=== PATIENT | male | born 1945 | race Caucasian/White ===

== ENCOUNTER 2016-11-27 21:53 | Emergency (ER) | payer OTHER, MEDICARE ==
[2016-11-27] MEDS ORDERED: diltiaZEM INJ 5 MG/ML VIAL IVP STA ×2 (22:35→23:07)
[2016-11-27] MEDS ORDERED: diltiaZEM INJ 5 MG/ML VIAL ONE ×2 (22:40→23:09)
[2016-11-28] MEDS ORDERED: POTASSIUM CHLOR 10 MEQ/100 ML 100 ML IV STA (00:19)
[2016-11-28] MEDS ORDERED: METOPROLOL 5 MG/5 ML VIAL IVP STA ×3 (00:20→00:42)
[2016-11-28] MEDS ORDERED: METOPROLOL 5 MG/5 ML VIAL IVP ONE ×2 (00:25→00:43)
[2016-11-28] MEDS ORDERED: POTASSIUM CHLOR 10 MEQ/100 ML 100 ML IV ONE (00:25)
[2016-11-28] MEDS ORDERED: SODIUM CHLORIDE 0.9% 500 ML IV STA (01:03)
== END 2016-11-28 03:10 | disposition home or self-care (01) ==
DX: I48.91 Unspecified atrial fibrillation (principal); I48.92 Unspecified atrial flutter

== ENCOUNTER 2018-04-30 16:42 | Emergency (ER) | payer MEDICARE, BC ==
--- NOTE | 2018-04-30 17:14 | ED Physician Documentation ---
PD HPI CHEST PAIN - Stated complaint Stated Complaint: DIZZINESS,POSS AFIB - Chief complaint Chief Complaint: Cardiac - History obtained from History obtained from: Patient - History of Present Illness Timing - onset: Today (72-year-old gentleman with history of paroxysmal atrial fibrillation maintained on twice daily flecainide and once a day metoprolol. Of note he started timolol eye gtts a few months ago. Today he has had episodic feeling like his heart is skipping a beat. There is no associated syncope or presyncope, shortness of breath, pedal edema, or chest pain.) Review of Systems Constitutional: denies: Fever, Chills Cardiac: reports: Palpitations. denies: Chest pain / pressure, Pedal edema, Calf pain Respiratory: denies: Dyspnea, Cough, Hemoptysis, Wheezing GI: denies: Abdominal Pain, Nausea PD PAST MEDICAL HISTORY - Past Medical History Cardiovascular: Atrial fibrillation Respiratory: None Endocrine/Autoimmune: None GI: None : None HEENT: Glaucoma Psych: Anxiety Musculoskeletal: None Derm: None - Past Surgical History Past Surgical History: Yes HEENT: Tonsil/Adenoidectomy - Present Medications Home Medications: Ambulatory Orders Medication Instructions Recorded Confirmed Latanoprost 0.005% Ophth Drops 1 drop EACHEYE DAILY 03/05/14 11/27/16 [Xalatan Ophth Drops] Metoprolol Tartrate 25 mg PO DAILY 08/03/14 11/27/16 Tamsulosin [Flomax] 0.4 mg PO DAILY 01/14/16 11/27/16 Aspirin [Adult Low Dose Aspirin EC] 81 mg PO DAILY 08/01/16 11/27/16 Flecainide [Tambocar] 50 mg PO BID 08/01/16 11/27/16 - Allergies Allergies/Adverse Reactions: Allergies Allergy/AdvReac Type Severity Reaction Status Date / Time No Known Drug Allergies Allergy Verified 04/30/18 16:48 - Social History Does the pt smoke?: No Smoking Status: Never smoker Does the pt drink ETOH?: No Does the pt have substance abuse?: No - Immunizations Immunizations are current?: Yes - POLST Patient has POLST: Yes PD ED PE NORMAL - Vitals Vital signs reviewed: Yes - General General: Alert and oriented X 3, No acute distress - Neck Neck: Supple, no meningeal sign, No bony TTP - Cardiac Cardiac: RRR, No murmur - Respiratory Respiratory: No respiratory distress, Clear bilaterally - Abdomen Abdomen: Non tender - Neuro Neuro: Alert and oriented X 3, Normal speech Results - Vitals Vitals: Vital Signs - 24 hr 04/30/18 04/30/18 04/30/18 16:45 17:49 18:07 Temperature 36.8 C Heart Rate 65 40 L 44 L Respiratory 16 16 14 Rate Blood Pressure 139/67 H 144/55 H 144/64 H O2 Saturation 98 97 100 Oxygen O2 Source Room air - EKG (time done) 1703 Rate: Rate (enter#) (45) Rhythm: Sinus bradycardia [place]: Normal Intervals: Normal ID QRS: Normal Ischemia: Normal ST segments Computer interpretation: Agree with computer - Labs Labs: Laboratory Tests 04/30/18 04/30/18 04/30/18 17:23 17:23 17:23 WBC 8.3 RBC 4.66 L Hgb 15.3 Hct 42.6 MCV 91.6 MCH 32.9 H MCHC 35.9 RDW 12.9 Plt Count 200 MPV 7.9 Neut # (Auto) 5.0 Lymph # (Auto) 2.2 [place] # (Auto) 0.9 Eos # (Auto) 0.1 Baso # (Auto) 0.0 Absolute Nucleated RBC 0.01 Nucleated RBC % 0.1 Sodium 137 Potassium 4.0 Chloride 103 Carbon Dioxide 24 Anion Gap 10.0 BUN 21 H Creatinine 1.0 Estimated GFR (MDRD) 74 L Glucose 147 H Calcium 8.8 Magnesium 2.2 Total Bilirubin 1.9 H AST 36 ALT 35 Alkaline Phosphatase 55 Troponin I < 0.04 Total Protein 6.6 L Albumin 4.3 Globulin 2.3 Albumin/Globulin Ratio 1.9 Lipase 30 PD MEDICAL DECISION MAKING - ED course ED course: 72-year-old gentleman with palpitations that are very fleeting and intermittent. As we are talking on the monitor he said it just happened and he had a single PA-C. I discussed with him that this is not really pathologic per se. Of note he is modestly bradycardic. I presume because of the combination of atenolol and metoprolol and he is advised to stop his metoprolol until he follows up. That said, his symptoms do not really correlate with symptomatic bradycardia. - Sepsis Event Vital Signs: Vital Signs - 24 hr 09/09/1604/30/18 04/30/18 16:45 17:49 18:07 Temperature 36.8 C Heart Rate 65 40 L 44 L Respiratory 16 16 14 Rate Blood Pressure 139/67 H 144/55 H 144/64 H O2 Saturation 98 97 100 Oxygen O2 Source Room air Departure - Departure Disposition: 01 Home, Self Care Clinical Impression: Palpitations, PAC (premature atrial contraction) Condition: Good Record reviewed to determine appropriate education?: Yes Instructions: ED Palpitations Comments: Stop your metoprolol until you follow-up with your primary care physician, follow-up with Dr. Polanco or one of his partners this week for a pulse and blood pressure check. Discharge Date/Time: 04/30/18 18:09
[2018-04-30 17:41] LABS: ALBUMIN 4.3 g/dL (3.2-5.5); ALBUMIN/GLOBULIN RATIO 1.9 (1.0-2.2); BILIRUBIN,TOTAL 1.9 mg/dL (0.2-1.0); CALCIUM 8.8 mg/dL (8.5-10.3); MAGNESIUM 2.2 mg/dL (1.7-2.8); TOTAL PROTEIN 6.6 g/dL (6.7-8.2)
[2018-04-30 17:53] LABS: BASOPHILS % (AUTO) 0.5 %; EOSINOPHILS # (AUTO) 0.1 10^3/uL (0.0-0.7); EOSINOPHILS % (AUTO) 1.1 %; HGB - HEMOGLOBIN 15.3 g/dL (14.0-18.0); LYMPHOCYTES # (AUTO) 2.2 10^3/uL (1.5-3.5); MEAN CORPUSCULAR HEMOGLOBIN 32.9 pg (27.0-31.0); MEAN CORPUSCULAR HGB CONC 35.9 g/dL (32.0-36.0); MEAN CORPUSCULAR VOLUME 91.6 fL (80.0-94.0); MEAN PLATELET VOLUME 7.9 fL (7.4-11.4); MONOCYTES # (AUTO) 0.9 10^3/uL (0.0-1.0); MONOCYTES % (AUTO) 10.4 %; PLT - PLATELET COUNT 200 10^3/uL (130-450); RED BLOOD COUNT 4.66 10^6/uL (4.70-6.10); RED CELL DISTRIBUTION WIDTH 12.9 % (12.0-15.0); WHITE BLOOD COUNT 8.3 x10^3/uL (4.8-10.8)
[2018-04-30 18:08] VITALS: BP 144/64
== END 2018-04-30 18:09 | disposition home or self-care (01) ==
LOC: ED 16:42
DX: R00.2 Palpitations (principal); I49.1 Atrial premature depolarization; I48.91 Unspecified atrial fibrillation
CPT/HCPCS: 36415; 80053; 83690; 83735; 84484; 85025; 93005; 99283

== ENCOUNTER 2019-02-11 19:45 | Emergency (ER) | payer MEDICARE, BC ==
[2019-02-11 20:21] LABS: BASOPHILS # (AUTO) 0.1 10^3/uL (0.0-0.1); BASOPHILS % (AUTO) 1.1 %; EOSINOPHILS # (AUTO) 0.1 10^3/uL (0.0-0.7); EOSINOPHILS % (AUTO) 0.9 %; HGB - HEMOGLOBIN 15.6 g/dL (14.0-18.0); LYMPHOCYTES # (AUTO) 2.2 10^3/uL (1.5-3.5); LYMPHOCYTES % (AUTO) 27.2 %; MEAN CORPUSCULAR HEMOGLOBIN 32.7 pg (27.0-31.0); MEAN CORPUSCULAR HGB CONC 35.7 g/dL (32.0-36.0); MEAN CORPUSCULAR VOLUME 91.5 fL (80.0-94.0); MEAN PLATELET VOLUME 8.1 fL (7.4-11.4); MONOCYTES # (AUTO) 0.9 10^3/uL (0.0-1.0); MONOCYTES % (AUTO) 10.9 %; NEUTROPHILS # (AUTO) 4.8 10^3/uL (1.5-6.6); NEUTROPHILS % (AUTO) 59.9 %; PLT - PLATELET COUNT 210 10^3/uL (130-450); RED BLOOD COUNT 4.77 10^6/uL (4.70-6.10); RED CELL DISTRIBUTION WIDTH 13.3 % (12.0-15.0)
--- NOTE | 2019-02-11 20:33 | ED Physician Documentation ---
History of Present Illness - Stated complaint Stated Complaint: IRREG HEARTBEAT - Chief complaint Chief Complaint: Cardiac - History obtained from History obtained from: Patient - History of Present Illness Timing: Enter time (15:00) Pain level max: 0 Pain level now: 0 Improved by: skipped beat palpitations starting 3 PM today while doing yardwork Review of Systems Constitutional: reports: Reviewed and negative Cardiac: reports: Palpitations. denies: Chest pain / pressure, Pedal edema, Calf pain Respiratory: reports: Reviewed and negative GI: reports: Reviewed and negative PD PAST MEDICAL HISTORY - Past Medical History Cardiovascular: Atrial fibrillation Respiratory: None Endocrine/Autoimmune: None GI: None : None HEENT: Glaucoma Psych: Anxiety Musculoskeletal: None Derm: None - Past Surgical History Past Surgical History: Yes HEENT: Tonsil/Adenoidectomy - Present Medications Home Medications: Ambulatory Orders Medication Instructions Recorded Confirmed Latanoprost 0.005% Ophth Drops 1 drop EACHEYE DAILY 03/05/14 11/27/16 [Xalatan Ophth Drops] Metoprolol Tartrate 25 mg PO DAILY 08/03/14 11/27/16 Tamsulosin [Flomax] 0.4 mg PO DAILY 01/14/16 11/27/16 Aspirin [Adult Low Dose Aspirin EC] 81 mg PO DAILY 08/01/16 11/27/16 Flecainide [Tambocar] 50 mg PO BID 08/01/16 11/27/16 - Allergies Allergies/Adverse Reactions: Allergies Allergy/AdvReac Type Severity Reaction Status Date / Time No Known Drug Allergies Allergy Verified 04/30/18 16:48 - Social History Does the pt smoke?: No Smoking Status: Never smoker Does the pt drink ETOH?: No Does the pt have substance abuse?: No - Immunizations Immunizations are current?: Yes - POLST Patient has POLST: Yes PD ED PE NORMAL - Vitals Vital signs reviewed: Yes - General General: Alert and oriented X 3, No acute distress, Well developed/nourished - Neck Neck: Supple, no meningeal sign - Cardiac Cardiac: No murmur, No gallop, No rub - Respiratory Respiratory: No respiratory distress, Clear bilaterally - Abdomen Abdomen: Soft, Non tender - Back Back: No CVA TTP - Extremities Extremities: No edema PD ED PE EXPANDED - Cardiac Cardiac: Regular Rate, Regular Rhythm, Other (occasional extra beats) Results - Vitals Vitals: Oxygen O2 Source Room air - EKG (time done) No standard instances Rate: Rate (enter#) (51) Rhythm: NSR [place]: LAD Intervals: Normal [place] QRS: Normal Ischemia: Normal ST segments - Labs Labs: Laboratory Tests 02/11/19 02/11/19 02/11/19 20:15 20:15 20:15 WBC 8.0 RBC 4.77 Hgb 15.6 Hct 43.6 MCV 91.5 MCH 32.7 H MCHC 35.7 RDW 13.3 Plt Count 210 MPV 8.1 Neut # (Auto) 4.8 Lymph # (Auto) 2.2 [place] # (Auto) 0.9 Eos # (Auto) 0.1 Baso # (Auto) 0.1 Absolute Nucleated RBC 0.01 Nucleated RBC % 0.1 Sodium 138 Potassium 3.6 Chloride 100 L Carbon Dioxide 26 Anion Gap 12.0 BUN 21 H Creatinine 1.2 Estimated GFR (MDRD) 60 L Glucose 108 H Calcium 9.5 Phosphorus Magnesium Total Bilirubin 1.6 H AST 30 ALT 28 Alkaline Phosphatase 73 Troponin I < 0.04 Total Protein 7.2 Albumin 4.4 Globulin 2.8 Albumin/Globulin Ratio 1.6 Lipase 40 02/11/19 20:15 WBC RBC Hgb Hct MCV MCH MCHC RDW Plt Count MPV Neut # (Auto) Lymph # (Auto) [place] # (Auto) Eos # (Auto) Baso # (Auto) Absolute Nucleated RBC Nucleated RBC % Sodium Potassium Chloride Carbon Dioxide Anion Gap BUN Creatinine Estimated GFR (MDRD) Glucose Calcium Phosphorus 2.9 Magnesium 2.5 Total Bilirubin AST ALT Alkaline Phosphatase Troponin I Total Protein Albumin Globulin Albumin/Globulin Ratio Lipase - Rads (name of study) chest xray Radiology: Prelim report reviewed, See rad report PD MEDICAL DECISION MAKING - ED course Complexity details: reviewed old records, reviewed results, re-evaluated patient, considered differential, d/w patient Departure - Departure Disposition: 01 Home, Self Care Clinical Impression: Palpitations Condition: Good Instructions: ED Bradycardia, ED Palpitations Comments: Contact your director of nurses registry on Wednesday to arrange for next available appointment Discharge Date/Time: 02/11/19 22:32
[2019-02-11 20:37] LABS: ALBUMIN 4.4 g/dL (3.2-5.5); ALBUMIN/GLOBULIN RATIO 1.6 (1.0-2.2); BILIRUBIN,TOTAL 1.6 mg/dL (0.2-1.0); CALCIUM 9.5 mg/dL (8.5-10.3); CREATININE 1.2 mg/dL (0.6-1.2); TOTAL PROTEIN 7.2 g/dL (6.7-8.2)
[2019-02-11 20:44] LABS: MAGNESIUM 2.5 mg/dL (1.7-2.8); PHOSPHORUS 2.9 mg/dL (2.5-4.6)
--- NOTE | 2019-02-11 21:17 | XRAY Report ---
Reason: c/o irregular heart rate Procedure Date: 02/11/2019 Accession Number: [id number] / [id number] Procedure: XR - Chest 1 View X-Ray CPT Code: 59239 FULL RESULT: EXAM: CHEST RADIOGRAPHY EXAM DATE: 02/11/2019 08:27 PM. CLINICAL HISTORY: C/o irregular heart rate. COMPARISON: CHEST 2 VIEW 04/30/2018 4:52 PM. TECHNIQUE: 1 view. FINDINGS: Lungs/Pleura: No focal opacities evident. No pleural effusion. No pneumothorax. Mediastinum: Within exam limitations, the cardiomediastinal contour is normal. Other: None. IMPRESSION: Normal single view chest. RADIA
[2019-02-11 22:17] VITALS: BP 156/61
== END 2019-02-11 22:32 | disposition home or self-care (01) ==
LOC: ED 19:45
DX: R00.2 Palpitations (principal); Z79.82 Long term (current) use of aspirin
CPT/HCPCS: 36415; 71045; 80053; 83690; 83735; 84100; 84484; 85025; 93005; 99283; 99284

== ENCOUNTER 2019-05-02 10:48 | Outpatient (CLI) | payer MEDICARE, BC ==
--- NOTE | 2019-05-02 11:53 | SLEEP CARE CONSULTATION ---
Information from patient questionnaire entered by Lolis Santiago. I have reviewed and concur with the information entered by Lolis Santiago. This document represents the service I personally performed and the decisions made by me, Zulema Ratliff MD, [facility]. History of Present Illness Reason for Visit: New patient Chief Complaint: reports: Observed pauses in breathing Usual bedtime: 2200 Time it takes to fall asleep: 3 MINUTES Observed to quit breathing while asleep: No Sleeps alone due to snoring: No (SINGLE) Number of times waking at night: 4-5 Reasons for waking at night: reports: Bathroom Usually gets out of bed at: [id number] Feels refreshed in the morning: Yes Morning headache: No Sleepy or fatigued during the day: No Ever fallen asleep while driving: No Takes day naps: No Dreams during day naps: No Prior sleep studies: No Additional HPI information: I had the pleasure of seeing Mr. Zhao today regarding the possibility of him having a sleep disorder. As you know, he is a 73 year old gentleman who had an overnight pulse oximetry that showed significant hypoxemia. He has cardiac arrhythmia and is taking flecanide. He often wakes up with palpitation. He does not snore much at night. He has never been observed to stop breathing in his sleep. However, he sleeps along. He can recall waking up on the average of 4 - 5 times during the night. Most of the time he wakes up because of having to use the bathroom. He complains of nasal congestion and uses BreathRite strips at night. He broke his nose as a child. Subjective Initial [place] Sleepiness Scale score: 0 Past Medical History Past Medical History: reports: Hypertension, Arrythmia, Other (IRREGULAR HEART BEAT AT TIMES) Social History The patient's occupation is RETIRED. Patient is Single and lives in [place]. Have you smoked in the past 12 months: No Alcohol use: No Caffeine use: Yes Caffeine amount and frequency: 8 OZ/DAY Family History Family history of sleep disordered breathing: No Allergies and Home Medications Drug allergies reviewed: Yes Home medication list reviewed: Yes Review of Systems Cardiovascular: reports: high blood pressure, irregular heart rate or pulse Respiratory: denies: shortness of breath, wheeze, sputum production, chronic cough, other Gastrointestinal: denies: heartburn, difficulty swallowing, nausea, vomitting, diarrhea, abdominal pain, other Urinary: reports: frequency Neurological: denies: headaches, seizure, head trauma, disorientation, speech dysfunction, gait or balance problems, fainting or unconsciousness, other Psychiatric: denies: Attention Deficit Hyperactivity, anxiety, depression, mood disorder, claustrophobia, other Ear/Nose/Throat: reports: dry mouth/throat Endocrine: denies: thyroid disease, history of goiter, sluggishness, too hot or cold, excessive thirst, increased appetite, increased urination, unexplained weakness, other Musculoskeletal: denies: joint pain, neck pain, back pain, joint swelling, muscle pain or cramping, mobility problems, other Physical Exam Vital signs obtained and entered by: Dr. Ratliff Blood Pressure: 125/70 Cuff size: long Heart Rate: 48 O2 Saturation: 99 Height: 5 ft 9 in Weight (kg): 180 lb Body Mass Index: 26.6 BMI Classification: Overweight Neck circumference: 16 Mood/affect: normal HEENT: No craniofacial malformation Nostrils: patent to airflow Turbinates: normal Septum: midline Mouth and throat: narrow oropharynx Soft palate: long Hard palate: normal Uvula: normal Uvula visualization: 50% Mallampati Class II Tongue: normal in size Tonsils: absent bilaterally Chin and jaw: normal size and position Neck: normal w/o lymphadenopathy or thyromegaly Heart: regular rate and rhythm Lungs: clear bilaterally Abdomen: soft, non-tender Extremities: no edema or clubbing Neurologic: intact, no focal deficits Impression and Plan IMPRESSION: 1. Obstructive Sleep Apnea-Hypopnea Syndrome, as suggested by history of loud and irregular snoring, observed cessation of breath while asleep, and frequent awakenings during the night. Narrow oropharynx and obesity are common predisposing factors for obstructive sleep apnea-hypopnea syndrome. Obstructive sleep apnea-hypopnea is a known predisposing factor for cardiac arrhythmia, especially atrial fibrillation. Pathophysiology of sleep-disordered breathing was discussed. I recommend proceeding to polysomnography to confirm the di agnosis and to assess severity. If he has significant sleep disordered breathing, a manual CPAP titration study will also be performed to find the optimal treatment pressure. I informed the patient of what the sleep studies involve and after some discussion, he agreed to proceed. Plan: 1. Schedule polysomnography + manual CPAP titration study and return in 1 to 2 weeks after the study to discuss result and initiate therapy. 2. Avoid long distance driving or when feeling sleepy. 3. Avoid alcohol, sedative and muscle relaxant around bedtime. 4. Attempt to lose weight. I spent 100% of this 15 minute visit face to face with the patient with greater than 50% of this was spent time counseling the patient and coordination of care.
[2019-05-02 11:54] VITALS: BP 125/70
== END 2019-05-02 10:49 | disposition home or self-care (01) ==
LOC: SC 10:48
PROVIDERS: ATTEND Internal Medicine Pulmonary Disease
DX: R06.81 Apnea, not elsewhere classified (principal); G47.8 Other sleep disorders; R06.83 Snoring
CPT/HCPCS: 99203; G0463; 99212

== ENCOUNTER 2019-05-20 20:36 | Outpatient (CLI) | payer MEDICARE, BC | END 2019-05-20 20:37 | disposition home or self-care (01) | LOC: SC 20:36 | PROVIDERS: ATTEND Internal Medicine Pulmonary Disease | DX: G47.33 Obstructive sleep apnea (adult) (pediatric) (principal); G47.61 Periodic limb movement disorder | CPT/HCPCS: 95810 ==

== ENCOUNTER 2019-06-14 14:52 | Outpatient (CLI) | payer MEDICARE, BC ==
--- NOTE | 2019-06-14 15:50 | SLEEP CARE CONSULTATION ---
Information from patient questionnaire entered by Melissa Perry. I have reviewed and concur with the information entered by Melissa Perry. This document represents the service I personally performed and the decisions made by me, Alena Mendoza RN, MSN, MANAGER OF ADMINISTRATION. History of Present Illness Initial [place] Sleepiness Scale score: 0 Current [place] Sleepiness Scale score: 0 Additional HPI information: ERIN MELCHOR returns with partner for follow up of the recently performed polysomnography and informed of findings. I explained the pathophysiology behind obstructive sleep apnea. We then spent quite a bit of time discussing different treatment options. For mild obstructive sleep apnea, surgery and oral appliance are alternatives to nasal CPAP therapy but in moderate or severe cases, nasal CPAP is the most effective and reliable treatment. I reviewed the impact of weight changes on sleep apnea and strongly recommended losing weight. After some discussion, the patient opted to go with the nasal CPAP therapy. I explained how CPAP machine works with sample devices Respironics Dreamstation and ResKidStart [id number] and what to expect when using the machine. I discussed the option of initiation of treatment with autoCPAP or having a manual titration study. The patient prefers to start therapy in a manual titration study. Patient counseled not drink alcohol less than 4 hours before bedtime as it can increase snoring and apnea. Patient does not drink alcohol. Patient was cautioned about risks of drowsy driving until sleepiness symptoms resolve. Patient denies drowsy driving. AAS patient education on snoring and sleep apnea given and reviewed. Sleep Study - Polysomnography Polysomnography findings: The quality of the study is good. The patient had poor sleep efficiency due to sleep onset insomnia and several prolonged awakenings during the night. The sleep architecture was abnormal for sleep fragmentation and reduced amount of time spent in REM and slow wave sleep (N3). Respiratory monitoring showed mild obstructive sleep apnea-hypopnea (AHI = 11.7) associated with frequent arousals, oxyhemoglobin desaturation and mild hypoxia (bertrand oxygen saturation of 86%). The patient did not sleep supine during this study (supine AHI = 0.0; non-supine = 11.72). Snore was light in intensity. There was severe periodic leg movement of sleep contributing to the sleep fragmentation. Cardiac rhythm was normal sinus rhythm without significant arrhythmia. No abnormal behavior (parasomnia) observed during the night. Allergies and Home Medications Known drug allergies: No Home medication list reviewed: Yes ( same except that added brimonidine eye drops bid both eyes ) Review of Systems Review of systems same as previous: Yes Physical Exam Blood Pressure: 140/60 Heart Rate: 73 O2 Saturation: 97 Height: 5 ft 9 in (stated) Weight: 185 lb Body Mass Index: 27.3 BMI Classification: Overweight Impression and Plan 1. Obstructive Sleep Apnea-Hypopnea Syndrome, mild, with lowest oxygen saturation of 86%. Positive pressure therapy could benefit his hypertension and atrial fibrillation. As mentioned above, the patient will be scheduled a manual titration study to find optimal treatment pressure for his comfort of initiating therapy. 2. Periodic limb movement, severe, that did not fragment patients sleep. Periodic limb movement of sleep (PLMS) is characterized by episodes of repetitive limb movements that occur during sleep and usually involve the lower limbs. The etiology is unknown but can be associated with restless leg syndrome (RLS), neuropathy, spinal cord diseases, kidney disease, rheumatological disorders, narcolepsy, obstructive sleep apnea, and REM sleep behavior disorder. Other factors that can increase PLMS and/or RLS are heredity and iron deficiency as reflected by a low serum ferritin level below 50 to 75mcg / L. Several medications can precipitate or aggravate PLMS such as selective serotonin re- uptake inhibitor antidepressants, tricyclic antidepressants, lithium, and dopamine receptor antagonists with the exception of bupropion. Caffeine can also aggravate PLMS and should be avoided. Sleep hygiene methods can also improve sleep as well as lifestyle changes such as regular exercise. Patient was advised t further evaluation is indicated such as rule out iron deficiency. * Schedule manual titration study. * Attempt to lose weight. * Avoid alcohol consumption near bedtime. * The patient is again cautioned about driving until sleepiness completely resolves. * Return after titration study to discuss results and initiate treatment. I spent 100% of this 43 minute visit face to face with the patient with greater than 50% of this was spent time counseling the patient and coordination of care.
[2019-06-14 15:51] VITALS: BP 140/60
== END 2019-06-14 14:53 | disposition home or self-care (01) ==
LOC: SC 14:52
PROVIDERS: ATTEND Nurse Practitioner Family
DX: G47.33 Obstructive sleep apnea (adult) (pediatric) (principal); G47.61 Periodic limb movement disorder
CPT/HCPCS: 99215; G0463; 99212

== ENCOUNTER 2019-07-28 20:19 | Outpatient (CLI) | payer MEDICARE, BC | END 2019-07-28 20:20 | disposition home or self-care (01) | LOC: SC 20:19 | PROVIDERS: ATTEND Internal Medicine Pulmonary Disease | DX: G47.33 Obstructive sleep apnea (adult) (pediatric) (principal); G47.61 Periodic limb movement disorder | CPT/HCPCS: 95811 ==

== ENCOUNTER 2019-08-01 10:52 | Outpatient (CLI) | payer MEDICARE, BC ==
[2019-08-01 10:19] VITALS: BP 128/70
--- NOTE | 2019-08-01 10:19 | SLEEP CARE CONSULTATION ---
Information from patient questionnaire entered by Melissa Perry. I have reviewed and concur with the information entered by Melissa Perry. This document represents the service I personally performed and the decisions made by me, Alena Mendoza, RN, MSN, TRANSP[employer]ATION MUSEUM HELPER. History of Present Illness Initial [place] Sleepiness Scale score: 0 Current [place] Sleepiness Scale score: 2 Additional HPI information: ERIN MELCHOR retruns for follow up of the sleep study with a manual CPAP titration study performed on 07/28/19. The patient was informed of the findings: I explained that the optimal CPAP pressure is 9cmH20.I explained the pathophysiology behind obstructive sleep apnea. I reviewed the impact of weight changes on sleep apnea and strongly recommended losing weight. After some discussion, the patient opted to go with the nasal CPAP therapy as planned . Nasal autoCPAP set at 9cmH20 will be ordered with rationale explained. I explained how CPAP machine works with sample devices Respironics Dreamstation and ResMed [id number] and what to expect when using the machine. Using CPAP every night in order to get used to it was emphasized. Patient advised to put CPAP mask on before getting into bed so as not to fall asleep without CPAP. To assist acclimation to CPAP use, it could also be used for a short time during day while reading or watching TV. The patient was instructed to call the CPAP supplier to discuss any mechanical problem that may occur. If the mask given is uncomfortable or is difficult to keep on through the night even with adjustment, contact the CPAP supplier as many will replace with another mask style if notified before 30 days. If snoring or perceives is not getting enough air or too much air from the machine, notify this office. AASM patient education PAP tips reviewed and given to patient. Patient prefers Respironics CPAP. Patient counseled not drink alcohol less than 4 hours before bedtime as it can increase snoring and apnea. Patient does not drink alcohol. Patient was cautioned about risks of drowsy driving until sleepiness symptoms resolve. Patient denies drowsy driving. AAS patient education on snoring and sleep apnea given and reviewed at last visit. Sleep Study - Polysomnography Polysomnography findings: The quality of the study is good. CPAP was initiated at 4 cmH2O and titrated up to CPAP at 8 cmH2O. CPAP at 9 cmH2O appeared to be optimal (AHI of 1.2 per hour on the pressure). There was REM sleep on the pressure. The patient did not sleep supine during this study. Oxygen saturation was mildly low due to the frequent residual respiratory events on lower CPAP settings. The patient appeared to have some difficulty tolerating positive airway pressure therapy. The patients sleep efficiency was reduced due to several prolonged awakenings after the sleep onset. The sleep architecture was abnormal for sleep fragmentation and reduced amount of time spent in REM sleep. There was severe periodic leg movement of sleep contributing to the sleep fragmentation. Cardiac rhythm was normal sinus rhythm without significant arrhythmia. No abnormal behavior (parasomnia) observed during the night. Allergies and Home Medications Known drug allergies: No Home medication list reviewed: Yes (no changes) Review of Systems Review of systems same as previous: Yes Physical Exam Blood Pressure: 128/70 Cuff size: long Heart Rate: 63 O2 Saturation: 98 Height: 5 ft 9 in Weight: 188 lb Weight change since last visit: gained 3 pounds Body Mass Index: 27.7 BMI Classification: Overweight Impression and Plan 1. Obstructive Sleep Apnea-Hypopnea Syndrome, mild, that is adequately controlled with CPAP pressure of [id number]. Obviously this is the cause of the patients symptoms of unrefreshed sleep, and excessive daytime sleepiness. Posi tive pressure therapy could benefit his hypertension and atrial fibrillation. As mentioned above, the patient will be started on nasal autoCPAP therapy with pressure set at 9 cmH2O. Compliance guidelines also reviewed. A copy of compliance guidelines will be given for reference at check out. * Nasal auto CPAP therapy, pressure at 9 cm H2O. * Respironics CPAP preferred * Attempt to lose weight. * Avoid alcohol consumption near bedtime. * The patient is again cautioned about driving until sleepiness completely resolves. * Return one month after CPAP obtained. I will assess response to therapy and compliance at that time. I spent 100% of this [20][30] minute visit face to face with the patient with greater than 50% of this was spent time counseling the patient and coordination of care.
== END 2019-08-01 10:53 | disposition home or self-care (01) ==
LOC: SC 10:52
PROVIDERS: ATTEND Nurse Practitioner Family
DX: G47.33 Obstructive sleep apnea (adult) (pediatric) (principal)
CPT/HCPCS: 99214; G0463; 99212

== ENCOUNTER 2019-10-16 08:17 | Outpatient (CLI) | payer MEDICARE, BC ==
[2019-10-16 09:07] VITALS: BP 128/60
--- NOTE | 2019-10-16 09:07 | SLEEP CARE CONSULTATION ---
Information from patient questionnaire entered by Lolis Santiago. I have reviewed and concur with the information entered by Lolis Satniago. This document represents the service I personally performed and the decisions made by me, Alena Mendoza, RN, MSN, LEAD LOADER. History of Present Illness Previous diagnosis: Mild, Obstructive Sleep Apnea-Hypopnea Syndrome AHI: 11.7 Reason for follow up: first compliance Equipment type: CPAP Equipment obtained from: [employer] Mask style: Nasal (N30) Mask brand: Resmed Backup mask available: Yes (Wisp from titration study to keep as spare advised) Last cushion change: 3 weeks ago Prior sleep studies: Yes CPAP Compliance Data - Data Reviewed with Patient Average duration of nightly device use: 4h 44m Compliance rate %: 93.3 ((compliant period 08/17/19-09/15/18)(last 30 days 46.7%)) Current pressure setting (cmH2O): 9 Humidity settin Heated hose settin Average residual AHI: 12.3 ((last 30 days 11.5)) Average large leak: 34s Subjective Missed days of use due to: reports: illness, travel (when traveled to [place], his nasal congestion prevented him from using CPAP. ) Patient concerns: reports: nasal congestion, dry mouth, nose, throat (*nose). denies: aerophagia, mask discomfort, air blowing in eyes, mask leak noise, condensation in mask/hose, epistaxis (mild dry nose daily with CPAP ) Observed to snore while using device: No (sleeps alone ) Current pressure setting perceived as: comfortable On therapy, patient: reports: other (no change noted) Initial Brightwood Sleepiness Scale score: 0 Current Brightwood Sleepiness Scale score: 0 Allergies and Home Medications Known drug allergies: No Home medication list reviewed: Yes (no changes ) Review of Systems Review of systems same as previous: No (nasal congestion increased the past month) Physical Exam Blood Pressure: 128/60 Cuff size: long Heart Rate: 65 O2 Saturation: 95 Height: 5 ft 9 in Weight: 185 lb 6.4 oz Body Mass Index: 27.3 BMI Classification: Overweight Impression and Plan 1. Obstructive Sleep Apnea-Hypopnea Syndrome, mild, with good treatment compliance the first 30 days of use but this reduced due to nasal congestion the past 2-3 weeks. His residual AHI is also elevated. On CPAP therapy, the patient has better sleep quality and is more rested overall. The patients pressure will be changed to autoCPAP 10-12 cmH20 For elevation of residual AHI. Patient advised to contact me if pressure change is uncomfortable so that it can be adjusted. Goals for apnea control discussed. Nasal congestion can be reduced with increasing the CPAP humidity as shown on sample device. The heated hose can be adjusted higher if condensation with higher humidity setting. He states he tried a higher setting with no resolution. Imboden pot was also used prior to CPAP to clear nasal secretions and wash off any nasal allergens to facilitate nasal breathing but did not help. In addition, a steamy shower before bed will often assist nasal drainage and that was done but stated only temporary relief. I will also have him increase his humidity higher to 5 and reduce his heated hose to 2 to allow more moisture. Printed instructions given. The increase in moisture should also reduce nasal dryness which makes him take off the mask after about 5 hours of use. Printed instructions given on how to change humidity and heated hose settings with rationale explaining why to change. His friend has used fluticasone nasal spray with good results and patient inquired about use. I explained it can be used over the counter or by prescription. He preferred a prescription and written to be used 1 spray each nostril twice daily. A sample of saline nasal spray given to use prior to clear nose of dried secretions to improve adherence of medication. Patient's apnea severity and rationale for treatment to reduce apnea, improve sleep quality and reduce cardiovascular and cerebrovascular events was reviewed. I also reviewed the benefit of consistent device use of CPAP for his arrhythmia. * * Change CPAP pressure to 10-12 cmH2O * Implement measures to reduce nasal congestion * Fluticasone prescription given to try. * Notify me if snoring with mask or feeling that the pressure is too much or too little * Attempt to lose weight * Call this office if any problems using CPAP * Return for follow up in 1-2 months , or sooner if concerns arise Time Spent with Patient (minutes): 35 I spent 100% of this visit face to face with the patient with greater than 50% of this was spent time counseling the patient and coordination of care.
== END 2019-10-16 08:18 | disposition home or self-care (01) ==
LOC: SC 08:17
PROVIDERS: ATTEND Nurse Practitioner Family
DX: G47.33 Obstructive sleep apnea (adult) (pediatric) (principal); E66.3 Overweight; Z68.27 Body mass index [BMI] 27.0-27.9, adult
CPT/HCPCS: 99214; G0463; 99212

== ENCOUNTER 2019-11-30 09:45 | Outpatient (CLI) | payer MEDICARE, BC ==
[2019-11-30 11:53] LABS: BASOPHILS % (AUTO) 0.6 %; EOSINOPHILS # (AUTO) 0.1 10^3/uL (0.0-0.7); EOSINOPHILS % (AUTO) 1.5 %; HGB - HEMOGLOBIN 14.8 g/dL (14.0-18.0); LYMPHOCYTES # (AUTO) 1.7 10^3/uL (1.5-3.5); LYMPHOCYTES % (AUTO) 33.3 %; MEAN CORPUSCULAR HEMOGLOBIN 31.5 pg (27.0-31.0); MEAN CORPUSCULAR HGB CONC 34.3 g/dL (32.0-36.0); MEAN CORPUSCULAR VOLUME 91.7 fL (80.0-94.0); MONOCYTES # (AUTO) 0.6 10^3/uL (0.0-1.0); MONOCYTES % (AUTO) 11.6 %; NEUTROPHILS # (AUTO) 2.7 10^3/uL (1.5-6.6); NEUTROPHILS % (AUTO) 52.6 %; PLT - PLATELET COUNT 168 10^3/uL (130-450); RED CELL DISTRIBUTION WIDTH 12.7 % (12.0-15.0); WHITE BLOOD COUNT 5.2 x10^3/uL (4.8-10.8)
[2019-11-30 12:16] LABS: ALBUMIN 4.3 g/dL (3.2-5.5); ALBUMIN/GLOBULIN RATIO 1.5 (1.0-2.2); ALKALINE PHOSPHATASE 52 IU/L (42-121); ALT ALANINE AMINOTRANSFERASE 32 IU/L (10-60); AST ASPARTATE AMINOTRANSFERASE 30 IU/L (10-42); BILIRUBIN,TOTAL 1.7 mg/dL (0.2-1.0); BUN - BLOOD UREA NITROGEN 20 mg/dL (6-20); CALCIUM 8.8 mg/dL (8.5-10.3); CARBON DIOXIDE - CO2 27 mmol/L (21-32); CHLORIDE 103 mmol/L (101-111); CHOL/HDL RATIO 5.7 (<5.0); CHOLESTEROL 210 mg/dL; CREATININE 0.9 mg/dL (0.6-1.2); GLUCOSE 115 mg/dL (70-100); HDL CHOLESTEROL 37 mg/dL; LDL CHOLESTEROL,CALCULATED 144 mg/dL; LDL/HDL RATIO 3.9 (<3.6); SODIUM 139 mmol/L (135-145); TOTAL PROTEIN 7.2 g/dL (6.7-8.2); VLDL CHOLESTEROL 29 mg/dL
== END 2019-11-30 23:59 | disposition home or self-care (01) ==
LOC: LAB.WCP 09:45
PROVIDERS: ATTEND Family Medicine
DX: R00.1 Bradycardia, unspecified (principal); I10 Essential (primary) hypertension; I48.0 Paroxysmal atrial fibrillation
CPT/HCPCS: 36415; 80053; 80061; 83721; 84443; 85025

== ENCOUNTER 2020-02-26 10:17 | Outpatient (CLI) | payer MEDICARE, BC ==
[2020-02-26 11:08] VITALS: BP 140/70
--- NOTE | 2020-02-26 11:08 | SLEEP CARE CONSULTATION ---
Information from patient questionnaire entered by Melissa Perry. I have reviewed and concur with the information entered by Melissa Perry. This document represents the service I personally performed and the decisions made by me, Alena Mendoza, RN, MSN, COUNTER WEIGHER. History of Present Illness Service Date and Time: 02/26/2020 1017 Previous diagnosis: Mild, Obstructive Sleep Apnea-Hypopnea Syndrome AHI: 11.7 (in 2019) Reason for follow up: other (4 month with pressure change) Equipment type: CPAP Equipment obtained from: [facility] (getting supplies as needed) Mask style: Full face Mask brand: Resmed Backup mask available: Yes (has a nasal mask ) Last cushion change: not since changed style to FFM Prior sleep studies: Yes Year and Where: 2019 - [facility] Type of Sleep Study: Polysomnography HPI additional information: Flonase tried - but only uses rarely due to odd sensation of breathing. He also uses a Breathe rite. He is also using an oral product for oral dryness due to mouth breathing with benefit. He also tried Res Med full face mask F30 medium and really likes this style. The higher pressure range was too much at last visit for elevated residual. Thus it was reduced to 4-8cmH20 and more comfortable to use. CPAP Compliance Data - Data Reviewed with Patient Average duration of nightly device use: 6.45 Compliance rate %: 96.7 (180 days) Current pressure setting (cmH2O): 4-8 Humidity settin Heated hose settin Average residual AHI: 4.9 Average large leak: 10 sec Subjective Patient concerns: reports: dry mouth, nose, throat (mild - resolved with use of oral dryness product. ), other (wakes every 2 hours due to Flomax). denies: aerophagia, mask discomfort, air blowing in eyes, mask leak noise, condensation in mask/hose, nasal congestion Observed to snore while using device: No Current pressure setting perceived as: comfortable On therapy, patient: reports: sleeping better, awakening more refreshed, being more awake and alert during the day, more rested overall. denies: drowsiness while driving Initial Byron Sleepiness Scale score: 0 (in 2019) Current Byron Sleepiness Scale score: 0 Allergies and Home Medications Known drug allergies: No Home medication list reviewed: No (no changes stated ) Review of Systems Review of systems same as previous: Yes Physical Exam Blood Pressure: 140/70 Cuff size: long Heart Rate: 56 O2 Saturation: 99 Height: 5 ft 9 in Weight: 187 lb 3.2 oz Body Mass Index: 27.6 BMI Classification: Overweight Impression and Plan 1. Obstructive Sleep Apnea-Hypopnea Syndrome, mild, with good treatment compliance and good apnea control. On CPAP therapy, the patient has better sleep quality and is more rested overall. For oral dryness, he can reduce the heated hose from 3 to lower setting. Verbal instructions given. He can also check manual or contact [facility] for further instruction. Instead of Flonase he can use saline nasal spray to clear nose of secretions to facilitate breathing prior to CPAP use. He is to stop Flonase use due to odd feeling in lungs, no shortness of breath. It is unclear why. He had questions about his weight and BMI and answered. He is advised he is over weight to lose some weight. Cautioned not to gain weight as will increase apnea and CPAP pressure requirements as well as health risks. Main focus is to reduce central obesity to reduce health risks. He can discuss guidelines with PCP. Patient states he works out regularly. Symptoms to report for further pressure adjustment given if loses significant weight. Patient's apnea severity and rationale for treatment to reduce apnea, improve sleep quality and reduce cardiovascular and cerebrovascular events was reviewed. * Continue auto CPAP pressure at 4-8 cmH2O * Implement changes to improve oral dryness. * Stop Flonase * Use saline nasal spray as directed. * Notify me if snoring with mask or feeling that the pressure is too much or too little * Attempt to lose weight * Call this office if any problems using CPAP * Return for follow up in 6 months , or sooner if concerns arise Visit Type: In Office Time Spent with Patient (minutes): 26 Provider Statement: I spent 100% of the Face to Face Visit with the patient with greater than 50% spent counseling the patient and coordination of care.
== END 2020-02-26 10:18 | disposition home or self-care (01) ==
LOC: SC 10:17
PROVIDERS: ATTEND Nurse Practitioner Family
DX: G47.33 Obstructive sleep apnea (adult) (pediatric) (principal); E66.3 Overweight; Z68.27 Body mass index [BMI] 27.0-27.9, adult
CPT/HCPCS: 99214; G0463; 99212

== ENCOUNTER 2020-08-16 08:00 | Outpatient (CLI) | payer MEDICARE, BC ==
[2020-08-16 13:17] LABS: ALBUMIN 4.4 g/dL (3.2-5.5); ALBUMIN/GLOBULIN RATIO 1.5 (1.0-2.2); BILIRUBIN,TOTAL 1.6 mg/dL (0.2-1.0); CALCIUM 8.9 mg/dL (8.5-10.3); CREATININE 0.8 mg/dL (0.6-1.2); TOTAL PROTEIN 7.3 g/dL (6.7-8.2)
== END 2020-08-16 23:59 | disposition home or self-care (01) ==
LOC: LAB.WCP 08:00
PROVIDERS: ATTEND Nurse Practitioner
DX: I48.0 Paroxysmal atrial fibrillation (principal); Z79.899 Other long term (current) drug therapy
CPT/HCPCS: 36415; 80053

== ENCOUNTER 2020-09-06 08:58 | Outpatient (CLI) | payer MEDICARE, BC ==
--- NOTE | 2020-09-06 09:35 | SLEEP CARE CONSULTATION ---
Information from patient questionnaire entered by Melissa Perry. I have reviewed and concur with the information entered by Melissa Perry. This document represents the service I personally performed and the decisions made by , Modesta Adams ARNP. History of Present Illness Service Date and Time: 09/06/2020 0858 Previous diagnosis: Mild, Obstructive Sleep Apnea-Hypopnea Syndrome AHI: 11.7 (in 2019) Reason for follow up: six month Equipment type: CPAP Equipment obtained from: [facility] (getting supplies as needed) Mask style: Full face Backup mask available: Yes (old mask) Last cushion change: 4 months ago Prior sleep studies: Yes Year and Where: 2019 - [facility] HPI additional information: ERIN MELCHOR was diagnosed to have mild, AHI 11.7, obstructive sleep apnea- hypopnea syndrome and returned today for CPAP therapy six month follow-up. CPAP Compliance Data - Data Reviewed with Patient Average duration of nightly device use: 6 hr 30 min Compliance rate %: 93.3 (180 days) Current pressure setting (cmH2O): 4-8 Humidity settin Heated hose settin Average residual AHI: 3.9 Average large leak: 1 sec Subjective Missed days of use due to: reports: other (hospital) Patient concerns: denies: aerophagia, mask discomfort, air blowing in eyes, mask leak noise, condensation in mask/hose, nasal congestion, dry mouth, nose, throat (uses a dry mouth oral rinse, he is a mouth breather), epistaxis, other Observed to snore while using device: No (as far as he knows) Current pressure setting perceived as: comfortable On therapy, patient: reports: sleeping better, awakening more refreshed, being more awake and alert during the day, more rested overall. denies: drowsiness while driving Initial Greenwood Sleepiness Scale score: 0 (in 2019) Current Greenwood Sleepiness Scale score: 1 Allergies and Home Medications Drug allergies reviewed: Yes (NKDA) Home medication list reviewed: Yes (dofetilide 500 mg twice a day) Review of Systems Review of systems same as previous: Yes (no changes) Physical Exam Heart Rate: 55 O2 Saturation: 95 Height: 5 ft 9 in Weight: 188 lb Body Mass Index: 27.7 BMI Classification: Overweight Impression and Plan 1. Obstructive Sleep Apnea-Hypopnea Syndrome, mild, with good treatment compliance and good apnea control. On CPAP therapy, the patient has better sleep quality. He hasn't noticed a lot of difference in feeling rested since starting the CPAP therapy but was not overly sleepy before treatment began. His initial Greenwood was 0 and today was 1. He still uses OTC Breathright strips to keep his nostrils open so he can breathe through his nose at night as needed. He uses a full face mask. He is a mouth breather and has issues with mouth dryness. He uses an oral rinse before he goes to bed and sometimes when he gets up at night to reduce mouth dryness with good results. He adjusts the humidity settings as needed on his machine. He is to continue with these measures for his oral dryness. He is feeling comfortable with his CPAP therapy and has good control of his apnea. He will follow up in the office in 1 year unless he has any other issues/concerns arise. Patient's apnea severity and rationale for treatment to reduce apnea, improve sleep quality and reduce cardiovascular and cerebrovascular events was reviewed. I also reviewed the benefit of consistent device use of CPAP for his arrhythmia. * Continue auto CPAP pressure at 4-8 cmH2O * Notify me if snoring with mask or feeling that the pressure is too much or too little * Attempt to lose weight * Call this office if any problems using CPAP * Return for follow up in 1-year, or sooner if concerns arise Counseling Topics: Spare mask, Weight loss health impact Visit Type: In Office Time Spent with Patient (minutes): 23 Provider Statement: I spent 100% of the Face to Face Visit with the patient with greater than 50% spent counseling the patient and coordination of care.
--- OUTSIDE RECORDS SUMMARY | 2020-09-11 01:31 | EXTERNAL MEDICAL SUMMARY RPT | Continuity of Care Document ---
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 Unavailable Unavailable Donnie Unavailable Unavailable Problems date description facility 2020-07-29 12:24 [facility] 2020-08-05 00:00:00 [facility] [place] [facility] 2020-08-05 00:00:00 Tobacco use and exposure [facility] [place] [facility] 2020-08-05 00:00:00 [facility] [place] [facility] 2020-08-05 00:00:00 [facility] [place] [facility] 2020-08-05 00:00:00 Alcohol use [facility] [place] [facility] 2020-08-05 00:00:00 Tobacco smoking status [facility] [place] [facility] 2020-08-05 00:00:00 Total [facility] 2020-08-14 00:00:00 [facility] [place] [facility] 2020-08-14 00:00:00 COMPREHENSIVE METABOLIC PANEL [facility] [place] [facility] 2020-08-14 00:00:00 Other terminal makeup operator (current) drug [facility] therapy [place] [facility] 2020-08-14 00:00:00 [facility] 2020-08-16 00:00 PAROXYSMAL ATRIAL FIBRILLATION [facility] 2020-08-16 08:00 PAROXYSMAL ATRIAL FIBRILLATION [facility] Allergies date description facility No Known Drug Allergies [facility] MIRTAZAPINE [facility] DULOXETINE [facility] Medications date description facility 2020-08-02 00:00:00 null [facility] [place] [facility] 2020-08-02 00:00:00 null [facility] [place] [facility] 2020-08-02 00:00:00 null [facility] [place] [place] [facility] 2020-08-02 00:00:00 null [facility] [place] [facility] 2020-08-02 00:00:00 null [facility] [place] [facility] 2020-08-02 00:00:00 null [facility] [place] [facility] 2020-08-02 00:00:00 null [facility] [place] [facility] 2020-08-02 00:00:00 null [facility] [place] [facility] 2020-08-02 00:00:00 null [facility] [place] [facility] 2020-08-02 00:00:00 null [facility] [place] [facility] 2020-08-02 00:00:00 null [facility] [place] [facility] 2020-08-02 00:00:00 null [facility] [place] [place] [facility] 2020-08-02 00:00:00 DOFETILIDE [facility] [place] [facility] 2020-08-02 00:00:00 FERROUS SULFATE [facility] [place] [facility] 2020-08-02 00:00:00 ASCORBIC ACID [facility] [place] [facility] 2020-08-02 00:00:00 GINSENG CAPS [facility] [place] [facility] 2020-08-02 00:00:00 CYANOCOBALAMIN TABS [facility] [place] [facility] 2020-08-02 00:00:00 CINNAMON CAPS [facility] [place] [facility] 2020-08-02 00:00:00 ASCORBIC ACID [facility] [place] [facility] 2020-08-02 00:00:00 DOFETILIDE [facility] [place] [place] [facility] 2020-08-02 00:00:00 CINNAMON CAPS [facility] [place] [facility] 2020-08-02 00:00:00 FERROUS SULFATE [facility] [place] [facility] 2020-08-02 00:00:00 GINSENG CAPS [facility] [place] [facility] Procedures date description facility 2020-08-14 00:00:00 COMPREHENSIVE METABOLIC PANEL [facility] [place] [facility] date description facility 2020-08-14 00:00:00 [facility] [place] [facility] Results Social History date description facility 2020-08-05 00:00:00 [facility] smoker [facility] [place] [facility] Social History date description facility 2020-08-05 00:00:00 [facility] smoker [facility] [place] [facility] date description facility [id number]
== END 2020-09-06 08:59 | disposition home or self-care (01) ==
LOC: SC 08:58
PROVIDERS: ATTEND Nurse Practitioner Family
DX: G47.33 Obstructive sleep apnea (adult) (pediatric) (principal); E66.3 Overweight; Z68.27 Body mass index [BMI] 27.0-27.9, adult
CPT/HCPCS: 99213; G0463; 99212

== ENCOUNTER 2020-10-21 08:00 | Outpatient (CLI) | payer MEDICARE, BC | END 2020-10-21 23:59 | disposition home or self-care (01) | LOC: LAB.WCP 08:00 | PROVIDERS: ATTEND Nurse Practitioner | DX: R73.01 Impaired fasting glucose (principal) | CPT/HCPCS: 36415; 83036 ==

== ENCOUNTER 2020-11-13 07:00 | Outpatient (CLI) | payer MEDICARE, BC ==
[2020-11-13 12:21] LABS: CALCIUM 9.2 mg/dL (8.5-10.3); CREATININE 0.9 mg/dL (0.6-1.2); POTASSIUM 4.3 mmol/L (3.5-5.0)
== END 2020-11-13 23:59 | disposition home or self-care (01) ==
LOC: LAB.WCP 07:00
PROVIDERS: ATTEND Internal Medicine Cardiovascular Disease
DX: Z51.81 Encounter for therapeutic drug level monitoring (principal); Z79.899 Other long term (current) drug therapy; I48.0 Paroxysmal atrial fibrillation; R00.1 Bradycardia, unspecified
CPT/HCPCS: 36415; 80048

== ENCOUNTER 2020-11-15 19:16 | Observation (INO) | payer MEDICARE, BC ==
[2020-11-15 19:38] LABS: BASOPHILS % (AUTO) 0.5 %; EOSINOPHILS # (AUTO) 0.1 10^3/uL (0.0-0.7); HCT - HEMATOCRIT 44.8 % (42.0-52.0); HGB - HEMOGLOBIN 15.6 g/dL (14.0-18.0); LYMPHOCYTES # (AUTO) 2.7 10^3/uL (1.5-3.5); LYMPHOCYTES % (AUTO) 29.8 %; MEAN CORPUSCULAR HEMOGLOBIN 31.8 pg (27.0-31.0); MEAN CORPUSCULAR HGB CONC 34.8 g/dL (32.0-36.0); MEAN CORPUSCULAR VOLUME 91.4 fL (80.0-94.0); MEAN PLATELET VOLUME 9.9 fL (7.4-11.4); MONOCYTES # (AUTO) 0.8 10^3/uL (0.0-1.0); MONOCYTES % (AUTO) 8.8 %; NEUTROPHILS # (AUTO) 5.3 10^3/uL (1.5-6.6); NEUTROPHILS % (AUTO) 59.4 %; PLT - PLATELET COUNT 200 10^3/uL (130-450); RED CELL DISTRIBUTION WIDTH 12.3 % (12.0-15.0); WHITE BLOOD COUNT 8.9 x10^3/uL (4.8-10.8)
[2020-11-15] MEDS ORDERED: diltiaZEM INJ 5 MG/ML VIAL IVP STA (19:44)
[2020-11-15] MEDS ORDERED: DILTIAZEM 125 MG in DEXTROSE 5% 100 ML IV STA (19:45)
[2020-11-15 19:52] LABS: ALBUMIN 4.9 g/dL (3.2-5.5); ALBUMIN/GLOBULIN RATIO 1.7 (1.0-2.2); BILIRUBIN,TOTAL 1.5 mg/dL (0.2-1.0); CALCIUM 9.8 mg/dL (8.5-10.3); CREATININE 1.1 mg/dL (0.6-1.2); POTASSIUM 3.3 mmol/L (3.5-5.0); TOTAL PROTEIN 7.8 g/dL (6.7-8.2)
--- NOTE | 2020-11-15 20:03 | ED Physician Documentation ---
History of Present Illness - Stated complaint Stated Complaint: IRREGULAR HEART BEAT - Chief complaint Chief Complaint: Cardiac - History obtained from History obtained from: Patient - History of Present Illness Timing: Today Pain level max: 0 Pain level now: 0 - Additonal information Additional information: Patient is a 75-year-old male who presents to the emergency department complaining of a rapid heartbeat for the past 24 hours. He states he has a longstanding history of intermittent atrial fibrillation. He states he has been hospitalized for it in the past. He is not currently anticoagulated. He states his heartbeat has felt irregular and fast for the past 24 hours. He is unsure how often he is in atrial fibrillation as he cannot always clearly feel it. Currently has no chest pain or shortness of breath. States he just feels tired. Review of Systems Ten Systems: 10 systems reviewed and negative Constitutional: denies: Fever, Chills GI: denies: Vomiting, Diarrhea Skin: denies: Rash Musculoskeletal: denies: Neck pain, Back pain Neurologic: denies: Headache PD PAST MEDICAL HISTORY - Past Medical History Past Medical History: Yes Cardiovascular: Hypertension, Atrial fibrillation Respiratory: None Endocrine/Autoimmune: None GI: None : None HEENT: Glaucoma Psych: Anxiety Musculoskeletal: None Derm: None - Past Surgical History Past Surgical History: Yes HEENT: Tonsil/Adenoidectomy - Present Medications Home Medications: Ambulatory Orders Medication Instructions Recorded Confirmed Latanoprost 0.005% Ophth Drops 1 drop EACHEYE DAILY 03/05/14 11/15/20 [Xalatan Ophth Drops] Tamsulosin [Flomax] 0.4 mg PO DAILY 01/14/16 11/15/20 Aspirin [Adult Low Dose Aspirin EC] 81 mg PO DAILY 08/01/16 11/15/20 Flecainide [Tambocar] 50 mg PO BID 08/01/16 11/15/20 Dofetilide [Tikosyn] 500 mcg PO BID 11/15/20 11/15/20 amLODIPine [Norvasc] 5 mg PO BID 11/15/20 11/15/20 - Allergies Allergies/Adverse Reactions: Allergies Allergy/AdvReac Type Severity Reaction Status Date / Time No Known Drug Allergies Allergy Verified 11/15/20 19:18 - Social History Does the pt smoke?: No Smoking Status: Never smoker Does the pt drink ETOH?: No Does the pt have substance abuse?: No - Immunizations Immunizations are current?: Yes - POLST Patient has POLST: Yes PD ED PE NORMAL - Vitals Vital signs reviewed: Yes - General General: Alert and oriented X 3, No acute distress - HEENT HEENT: Moist mucous membranes - Neck Neck: Supple, no meningeal sign - Cardiac Cardiac: Other (irregularly irregular.) - Respiratory Respiratory: No respiratory distress, Clear bilaterally - Abdomen Abdomen: Soft, Non tender, Non distended - Derm Derm: Warm and dry - Extremities Extremities: No edema, No calf tenderness / cord - Neuro Neuro: Alert and oriented X 3 - Psych Psych: Normal mood, Normal affect Results - Vitals Vitals: Vital Signs - 24 hr 11/15/20 11/15/20 11/15/20 19:18 19:24 19:51 Temperature 37.1 C 37.1 C 37.1 C Heart Rate 125 H 135 H 121 H Respiratory 18 20 20 Rate Blood Pressure 148/113 H 108/51 L 117/69 O2 Saturation 97 95 95 11/15/20 11/15/20 11/15/20 20:03 20:10 20:15 Temperature 37.1 C 37.1 C 37.1 C Heart Rate 129 H 118 H 135 H Respiratory 16 16 16 Rate Blood Pressure 144/86 H 145/81 H 134/79 H O2 Saturation 95 93 96 11/15/20 11/15/20 20:30 20:39 Temperature 37.1 C 37.1 C Heart Rate 143 H 128 H Respiratory 15 20 Rate Blood Pressure 145/70 H 132/85 H O2 Saturation 96 96 Oxygen O2 Source Room air - EKG (time done) 1925 Rate: Rate (enter#) (160) Rhythm: Atrial fibrillation ( RVR) [place]: Normal QRS: Normal Ischemia: Non specific changes - Labs Labs: Laboratory Tests 11/15/20 11/15/20 11/15/20 19:30 19:30 19:30 WBC 8.9 RBC 4.90 Hgb 15.6 Hct 44.8 MCV 91.4 MCH 31.8 H MCHC 34.8 RDW 12.3 Plt Count 200 MPV 9.9 Neut # (Auto) 5.3 Lymph # (Auto) 2.7 [place] # (Auto) 0.8 Eos # (Auto) 0.1 Baso # (Auto) 0.0 Absolute Nucleated RBC 0.00 Nucleated RBC % 0.0 Sodium 140 Potassium 3.3 L Chloride 101 Carbon Dioxide 27 Anion Gap 12.0 BUN 25 H Creatinine 1.1 Estimated GFR (MDRD) 66 L Glucose 119 H Calcium 9.8 Total Bilirubin 1.5 H AST 28 ALT 28 Alkaline Phosphatase 75 Troponin I High Sens 6.1 Total Protein 7.8 Albumin 4.9 Globulin 2.9 Albumin/Globulin Ratio 1.7 Lipase 40 Nasal Adenovirus (PCR) Nasal B. parapertussis DNA (PCR) Nasal Coronavir 229E PCR Nasal Coronavir HKU1 PCR Nasal Coronavir NL63 PCR Nasal Coronavir OC43 PCR Nasal Enterovir/Rhinovir PCR Nasal Influenza B PCR Nasal Influenza A PCR Nasal Parainfluen 1 PCR Nasal Parainfluen 2 PCR Nasal Parainfluen 3 PCR Nasal Parainfluen 4 PCR Nasal RSV (PCR) Nasal B.pertussis DNA PCR Nasal C.pneumoniae (PCR) Kody Human Metapneumo PCR Nasal M.pneumoniae (PCR) Nasal SARS-CoV-2 (PCR) 11/15/20 20:07 WBC RBC Hgb Hct MCV MCH MCHC RDW Plt Count MPV Neut # (Auto) Lymph # (Auto) [place] # (Auto) Eos # (Auto) Baso # (Auto) Absolute Nucleated RBC Nucleated RBC % Sodium Potassium Chloride Carbon Dioxide Anion Gap BUN Creatinine Estimated GFR (MDRD) Glucose Calcium Total Bilirubin AST ALT Alkaline Phosphatase Troponin I High Sens Total Protein Albumin Globulin Albumin/Globulin Ratio Lipase Nasal Adenovirus (PCR) NOT DETECTED Nasal B. parapertussis DNA (PCR) NOT DETECTED Nasal Coronavir 229E PCR NOT DETECTED Nasal Coronavir HKU1 PCR NOT DETECTED Nasal Coronavir NL63 PCR NOT DETECTED Nasal Coronavir OC43 PCR NOT DETECTED Nasal Enterovir/Rhinovir PCR NOT DETECTED Nasal Influenza B PCR NOT DETECTED Nasal Influenza A PCR NOT DETECTED Nasal Parainfluen 1 PCR NOT DETECTED Nasal Parainfluen 2 PCR NOT DETECTED Nasal Parainfluen 3 PCR NOT DETECTED Nasal Parainfluen 4 PCR NOT DETECTED Nasal RSV (PCR) NOT DETECTED Nasal B.pertussis DNA PCR NOT DETECTED Nasal C.pneumoniae (PCR) NOT DETECTED Kody Human Metapneumo PCR NOT DETECTED Nasal M.pneumoniae (PCR) NOT DETECTED Nasal SARS-CoV-2 (PCR) NOT DETECTED - Rads (name of study) cxr Radiology: Prelim report reviewed, EMP read contemporaneously, See rad report (No acute cardiopulmonary pathology. ) PD MEDICAL DECISION MAKING - ED course Complexity details: reviewed results, re-evaluated patient, considered differential, d/w patient, d/w advertising consultant ED course: Patient with atrial fibrillation with rapid ventricular response. Maintained on a diltiazem drip. He is still tachycardic, Will need to be on a diltiazem drip and observed overnight for rate control and/or conversion. Discussed with Dr. Manriquez, hospitalist who accepts. This document was made in part using voice recognition software. While efforts are made to proofread this document, sound alike and grammatical errors may occur. Departure - Departure Disposition: ED Place in Observation Clinical Impression: Atrial fibrillation with RVR Condition: Stable Discharge Date/Time: 11/15/20 21:49
--- NOTE | 2020-11-15 20:05 | XRAY Report ---
PROCEDURE: Chest 1 View X-Ray INDICATIONS: Chest pain TECHNIQUE: One view of the chest was acquired. COMPARISON: 02/11/2019 FINDINGS: Surgical changes and devices: Cardiac pacing device is again seen projecting over left heart border.. Lungs and pleura: No pleural effusions or pneumothorax. Lungs are clear. Mediastinum: Mediastinal contours appear normal. Heart size is normal. Bones and chest wall: No suspicious bony lesions. Overlying soft tissues appear unremarkable. IMPRESSION: No acute cardiopulmonary pathology. Reviewed by: Jovi Rivero MD on 11/15/2020 8:04 PM PDT Approved by: Jovi Rivero MD on 11/15/2020 8:04 PM PDT Station ID: [id number]
[2020-11-15] MEDS ORDERED: ONDANSETRON ODT 4 MG TABLET TL PRN (20:48)
[2020-11-15] MEDS ORDERED: oxyCODONE 5 MG TABLET PO PRN (20:48)
[2020-11-15] MEDS ORDERED: SODIUM CHLORIDE FLUSH 0.9% 10 ML SYRINGE IVP PRN (20:48)
[2020-11-15] MEDS ORDERED: ACETAMINOPHEN 325 MG TABLET PO PRN (20:48)
[2020-11-15] MEDS ORDERED: ONDANSETRON 4 MG/2 ML VIAL IVP PRN (20:48)
[2020-11-15] MEDS ORDERED: POTASSIUM CHLORIDE 20 MEQ TABLET PO STA (20:51)
[2020-11-15] MEDS ORDERED: diltiaZEM INJ 125 MG in DEXTROSE 5% 100 ML IV SCH (21:00)
[2020-11-15 21:14] LABS: B. PARAPERTUSSIS- RESP PCR PAN NOT DETECTED; B. PERTUSSIS- RESP PCR PANEL NOT DETECTED; C. PNEUMONIAE- RESP PCR PANEL NOT DETECTED; CORONAVIRUS 229E-RESP PCR NOT DETECTED; CORONAVIRUS HKU1-RESP PCR NOT DETECTED; CORONAVIRUS NL63-RESP PCR NOT DETECTED; CORONAVIRUS OC43-RESP PCR NOT DETECTED; HUMAN METAPNEUMOVIRUS NOT DETECTED; INFLUENZA A- RESP PCR PANEL NOT DETECTED; INFLUENZA B - RESP PCR PANEL NOT DETECTED; M. PNEUMONIAE- RESP PCR PANEL NOT DETECTED; PARAINFLUENZA VIRUS 1 NOT DETECTED; PARAINFLUENZA VIRUS 2 NOT DETECTED; PARAINFLUENZA VIRUS 3 NOT DETECTED; PARAINFLUENZA VIRUS 4 NOT DETECTED; RHINOVIRUS/ENTEROVIRUS NOT DETECTED; RSV- RESP PCR PANEL NOT DETECTED; SARS-CoV-2 -RESP PCR PANEL NOT DETECTED
--- NOTE | 2020-11-15 21:47 | HISTORY & PHYSICAL EXAMINATION ---
Chief Complaint - Chief Complaint Chief Complaint: Palpitations for greater than 24 hours History of Present Illness - Admitted From Admitted From:: Home - History Obtained From Records Reviewed: [facility] History obtained from: Patient and Dr. Chu Exam Limitations: None - History of Present Illness HPI Comment/Other: This is a 75-year-old gentleman with known history of atrial fibrillation. He has had it since 2014 when he presented with one of his ER visits for palpitations. He is followed by [facility] cardiology, Dr. Aparicio. His chadsVasc score is low enough that he has not required any coagulation. Patient states that sometimes his palpitations are associated with anxiety and not always with atrial fibrillation. He usually does not know when he is in atrial fibrillation. This time he had such prolonged heart rate for over 24 hours that he came to the emergency room. He denies chest pain, edema, orthopnea, shortness of breath. But he does feel very tired. Denies fever, chills. In the past has been tried on beta-blockers, calcium channel blockers, flecainide. The beta-oriana addition caused him to have sinus pauses. Most recently he has been on Tikosyn. He has been to the emergency room a few times in the last couple of years. I mistakenly missed read the medical record and thought that they were all related to his atrial fibrillation but they are not. The last time he was in the emergency room for atrial fibrillation was in 2018. In the emergency room his temperature is 37.1. He presented with a heart rate of 160 that quickly went down to 125 will diltiazem IV push 20 mg. But then he rebounded back up into the 120s and 30s and he was started on a diltiazem drip. His heart rate is now 118. Blood pressure is maintained in the 140 systolic. Troponin is 6.1. Potassium is 3.3. CBC is normal. I have contacted his cardiology group. Dr. Maylin Chu was ammonia technician. Most likely he will need to be anticoagulated this time. We will rate control him, and he can be discharged. He may be a candidate for a pacemaker to allow them to use a beta-oriana to slow his heart rate down or keep him in sinus. History - Past Medical History Cardiovascular: reports: Hypertension, Atrial fibrillation Respiratory: reports: Sleep apnea Endocrine/Autoimmune: reports: None GI: reports: None : reports: Benign prostate hypertrophy HEENT: reports: Glaucoma Psych: reports: Depression, Anxiety Musculoskeletal: reports: None Derm: reports: None MRSA Hx?: No - Past Surgical History HEENT: reports: Tonsil/Adenoidectomy - Family & Social History Family History Comment/Other: Mom had breast cancer and skin cancer on her nose. She eventually of ischemic cardiomyopathy. Dad in his 80s of complications of Alzheimer's and a ruptured brain aneurysm. 1 brother and 1 sister. Sister has diabetes. Brother is healthy without any major medical issues. No children Living arrangement: At home Living Situation: Alone Social History Notes: Single gentleman. Lives alone. 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 No history of tobacco abuse, alcohol abuse or recreational substance abuse.He retired age 69. He does not have a designated power of quality assurance monitor chassis. But he states that his brother who lives in [place], and his sister who lives in [place] would be able to speak for him. - Substance History Use: Uses substance without health or social issues: NONE Abuse: Recurrent use of substance despite neg consequences: NONE Dependence: Experiences withdrawal or developed tolerances: NONE - POLST Patient has POLST: Yes POLST Status: Full Code (However, if he has multiple admissions with a deterioration in overall quality of life and that he can no longer thing for himself, feed himself, etc. to let him go) Meds/Allgy - Home Medications Home Medications: Ambulatory Orders Medication Instructions Recorded Confirmed Latanoprost 0.005% Ophth Drops 1 drop EACHEYE DAILY 03/05/14 11/15/20 [Xalatan Ophth Drops] Tamsulosin [Flomax] 0.4 mg PO DAILY 01/14/16 11/15/20 Aspirin [Adult Low Dose Aspirin EC] 81 mg PO DAILY 08/01/16 11/15/20 Flecainide [Tambocar] 50 mg PO BID 08/01/16 11/15/20 Dofetilide [Tikosyn] 500 mcg PO BID 11/15/20 11/15/20 amLODIPine [Norvasc] 5 mg PO BID 11/15/20 11/15/20 - Allergies Allergies/Adverse Reactions: Allergies Allergy/AdvReac Type Severity Reaction Status Date / Time No Known Drug Allergies Allergy Verified 11/15/20 19:18 Review of Systems - Constitutional Constitutional: denies: Fatigue, Fever, Chills, Malaise, Weakness, Poor appetite - Eyes Eyes: reports: Vision loss, Corrective lenses. denies: Pain, Irritation, Amaurosis, Blurred vision - Ears, Nose & Throat Ears, Nose & Throat: reports: Hearing loss, Other (Chronically hoarse low voice). denies: Ear pain, Hearing aids, Tinnitus, Vertigo, Nasal pain, Nasal discharge - Cardiovascular Cariovascular: reports: Irregular heart rate, Palpitations. denies: Chest pain, Edema, Lightheadedness, Syncope, Exertional dyspnea, Decr. exercise tolerance - Respiratory Respiratory: reports: Snoring, Apnea. denies: Cough, Sputum production, Wheezing - Gastrointestinal Gastrointestinal: denies: Abdominal pain, Abdominal distention, Constipation, Diarrhea, Change in bowel habits, Rectal bleeding - Genitourinary Genitourinary: reports: Frequency, Urgency, Nocturia, Other (Decreased urinary stream) - Musculoskeletal Musculoskeletal: denies: Muscle pain, Back pain, Muscle aches, Stiffness - Integumentary Integumentary: denies: Rash, Pruritis, Lesions, Dryness, Pigment changes, Nail changes - Neurological Neurological: reports: Numbness (In both his feet and he thinks he has neuropathy). denies: General weakness, Focal weakness, Headache, Dizziness, Memory problems, Pre-existing deficit - Psychiatric Psychiatric: reports: Anxiety (Which he denies but it is in his medical record). denies: Depression, Suicidal, Delusions, Hallucinations - Endocrine Endocrine: denies: Polyuria, Polydypsia, Polyphagia, Intolerance to cold, Intolerance to heat - Hematologic/Lymphatic Hematologic/Lymphatic: denies: Anemia, Bruising, Petechiae Prior Level of Functionality: Lives in his own home. Still is completely independent with regards to driving a car, paying his bills, doing his housework, laundry, cooking, cleaning, buying groceries and feeding himself and dressing himself. Exam - Vital Signs Reviewed Vital Signs: Yes Vital Signs: Vital Signs x48h Temp Pulse Resp BP Pulse Ox 11/15/20 21:11 37.1 C 118 H 15 122/76 93 11/15/20 21:00 37.1 C 120 H 15 136/86 H 95 11/15/20 20:39 37.1 C 128 H 20 132/85 H 96 11/15/20 20:30 37.1 C 143 H 15 145/70 H 96 11/15/20 20:15 37.1 C 135 H 16 134/79 H 96 11/15/20 20:10 37.1 C 118 H 16 145/81 H 93 11/15/20 20:03 37.1 C 129 H 16 144/86 H 95 11/15/20 19:51 37.1 C 121 H 20 117/69 95 11/15/20 19:24 37.1 C 135 H 20 108/51 L 95 11/15/20 19:18 37.1 C 125 H 18 148/113 H 97 - Physical Exam General Appearance: positive: No acute distress, Alert, Other (5 foot 9 inch white male who is 84 kg. Alert, oriented, comfortable in bed and speaking to me. During my history and physical he converts to sinus rhythm) Eyes Bilateral: positive: PERRL, EOMI ENT: positive: Pharynx nml Neck: positive: No JVD. negative: Stiff neck Respiratory: positive: No respiratory distress. negative: Wheezes, Rales, Rho nchi Cardiovascular: positive: Regular rate & rhythm, Systolic murmur. negative: Gallop/S4, Friction rub Peripheral Pulses: positive: 1+ Abdomen: positive: Non-tender, No organomegaly, Nml bowel sounds, No distention Skin: positive: Warm, Dry Extremities: positive: Non-tender, Full ROM, No pedal edema Neurologic/Psychiatric: positive: Oriented x3, CN's nml (2-12), Motor nml, Other (He is able to sit up in bed on his own, and pulled his IV pole to the bathroom to go to the bathroom. Able to clean himself, wash his hands, walk back to bed and get back in bed without any assistance. No ataxia, no tremors.) Conclusion/Plan - Problem List (1) Atrial fibrillation with RVR Conclusion/Plan: A recurrent problem for this vladislav gentleman. He is now in sinus rhythm after being in the ICU for a few minutes in the beginning of my physical exam. I have already spoken to his cardiology group and they will be contacting him next week for future plans. Plan: Continue observation till the morning. If he stays in sinus he may be able to be discharged. Anticoagulation. His pharmacy is [facility]. Insurance is [employer]. I will E scribe Genevieve byers. Start him on Cardizem CD Continue Tikosyn (2) Hypertension Conclusion/Plan: Continue his amlodipine which she takes in the morning Qualifiers: Hypertension type: essential hypertension Qualified Code(s): I10 - Ess ential (primary) hypertension (3) Benign prostatic hyperplasia Conclusion/Plan: Flomax in the morning Qualifiers: Lower urinary tract symptom presence: symptoms present (4) Hypokalemia Conclusion/Plan: Potassium 40 mEq one-time dose and recheck potassium in the morning - Lab Results Lab results reviewed: Yes Fish Bones: 11/15/20 19:30 11/15/20 19:30 - Diagnostic Imaging Results Diagnostic Imaging Results: positive: Final report reviewed Diagnostic Imaging Results Comments: Chest x-ray is without acute cardiopulmonary pathology - EKG Results EKG Comparison: Changed from prior EKG EKG Findings: recurrent atrial fib from NSR
[2020-11-15] MEDS ORDERED: diltiaZEM CD 120 MG CAPSULE PO SCH (22:26)
[2020-11-15] MEDS ORDERED: DOFETILIDE 500 MCG PO SCH (22:30)
[2020-11-15] MEDS: amLODIPine 5 MG TABLET PO SCH (22:58)
[2020-11-16] MEDS ORDERED: SODIUM CHLORIDE FLUSH 0.9% 10 ML SYRINGE IVP SCH (01:00)
[2020-11-16 05:03] LABS: CALCIUM 8.6 mg/dL (8.5-10.3); CREATININE 0.9 mg/dL (0.6-1.2); POTASSIUM 3.5 mmol/L (3.5-5.0)
--- NOTE | 2020-11-16 07:01 | Discharge Plan ---
Discharge Plan Problem Reviewed?: Yes Diet: Regular Activity Restrictions: Activity as Tolerated Shower Restrictions: No Driving Restrictions: No No Smoking: If you smoke, Please STOP! Call for help. Disposition: 01 Home, Self Care Condition: Stable Prescriptions: diltiaZEM CD [Cardizem Cd] 120 mg PO DAILY #30 cap Rivaroxaban [Xarelto] 20 mg PO DAILY #30 tablet Instruction Topics: Rivaroxaban oral tablets, Diltiazem extended-release capsules or tablets Health Concerns: You have chronic intermittent atrial fibrillation. Sometimes you are in a regular rhythm, sometimes you have a very fast heart rate. With this episode your heart rate was into the 160s. I spoke to the on-call doctor for your cardiology office, Dr. Chu, and she was very helpful and was able to review your records with Dr. Aparicio. It has not been a straightforward ability to manage your atrial fibrillation. You have been treated with Procan, flecainide, and most recently Tikosyn. There is also the question of whether to give or not give you a blood thinner to reduce your risk of stroke. In spite of really good medication to control your heart rate, you still have the electrical conduction system of your heart misbehaving and you go back into atrial fibrillation. What also makes it more difficult is that when you are in a regular rhythm, your heart medications will make your heart rate into the 30s and 40s with something called "sinus pauses". The sinus refers to your sinus node, the main battery that creates the normal pulsation of electrical conduction through your heart muscle to make it beat. You bicycle quite a bit. So we think that a regular heart rate for you is probably already on the low side. Then when we add medicine to slow down your atrial fibrillation, your heart rate gets too low. After being in the hospital a few hours, the medication we gave you (diltiazem) slowed you down enough that your heart rate converted into a regular rhythm. Plan of Treatment: 1. Dr. Aparicio's office will be calling you in the next few days to see you in follow-up. 2. They did ask me to start you on a blood thinner. This is because you do go in and out of atrial fibrillation. Sometimes you are aware of when you are doing this, sometimes you or not. The blood thinner will be to reduce your risk of stroke that happens with people who go in and out of atrial fibrillation. 3. Your heart rate is 35-42 while here. You do have very brief sinus pauses that only last 1 or 2 heartbeats. You have no symptoms. But it will be very difficult to keep you on the Cardizem and the Tikosyn. At this point we only want you to stay on the Tikosyn. You will be sent home with a prescription for Cardizem to [facility]. Take the Cardizem only when you are heart rate is too fast. 4. The blood thinner we have started is paid for by your insurance company. There are several medications we could have given you. In the end Xarelto is what your insurance company pays for. It still can be a very expensive medication. So if your business department chair still wants you to take his blood thinner, they may be able to switch you to something that is generic. It is called Coumadin but just more inconvenient to use then Xarelto. Care Goals: To have a normal heart rate, to eventually be off blood thinners, and to not have to come to the hospital for this Assessment: Patient understands care goals and will follow through Follow-up with: Simon Aparicio MD [Physician No Access] - Venus Fields ARNP, TACTICAL/MOBILE WATCH OFFICER-C [Credentialed Staff Provider] -
--- NOTE | 2020-11-16 07:09 | DISCHARGE SUMMARY ---
Discharge Summary Admit Date: 11/15/20 Discharge Date: 11/16/20 Discharging Provider: Dolly Manriquez MD Primary Care Provider: RONEN Daniels/Simon Aparicio MD Code Status: Attempt Resuscitation Condition at Discharge: Stable Discharge Disposition: 01 Home, Self Care - DIAGNOSES Discharge Diagnoses with Status of Each Condition: 1. Chronic intermittent atrial fibrillation with RVR 2. Hypertension 3. Benign prostatic hypertrophy 4. Hypokalemia 5. Sinus bradycardia 6. Brief sinus pauses - HPI History of Present Illness: This is a 75-year-old gentleman with known history of atrial fibrillation. He h as had it since 2013 when he presented with one of his ER visits for palpitations. He is followed by [facility] cardiology, Dr. Aparicio. His chadsVasc score is low enough that he has not required any coagulation. Patient states that sometimes his palpitations are associated with anxiety and not a lways with atrial fibrillation. He usually does not know when he is in atrial fibrillation. This time he had such prolonged heart rate for over 24 hours that he came to the emergency room. He denies chest pain, edema, orthopnea, shortness of breath. But he does feel very tired. Denies fever, chills. In the past has been tried on beta-blockers, calcium channel blockers, flecainide. The beta-oriana addition caused him to have sinus pauses. Most recently he has been on Tikosyn. He has been to the emergency room a few times in the last couple of years. I mistakenly missed read the medical record and thought that they were all related to his atrial fibrillation but they are not. The last time he was in the emergency room for atrial fibrillation was in 2018. In the emergency room his temperature is 37.1. He presented with a heart rate of 160 that quickly went down to 125 will diltiazem IV push 20 mg. But then he rebounded back up into the 120s and 30s and he was started on a diltiazem drip. His heart rate is now 118. Blood pressure is maintained in the 140 systolic. Troponin is 6.1. Potassium is 3.3. CBC is normal. I have contacted his cardiology group. Dr. Maylin Chu was transportation project manager. Most likely he will need to be anticoagulated this time. We will rate control him, and he can be discharged. He may be a candidate for a pacemaker to allow them to use a beta-oriana to slow his heart rate down or keep him in sinus. - Past Medical History Cardiovascular: reports: Hypertension, Atrial fibrillation Respiratory: reports: Sleep apnea Endocrine/Autoimmune: reports: None GI: reports: None : reports: Benign prostate hypertrophy HEENT: reports: Glaucoma Psych: reports: Depression, Anxiety Musculoskeletal: reports: None Derm: reports: None MRSA Hx?: No - Past Surgical History HEENT: reports: Tonsil/Adenoidectomy - HOSPITAL COURSE Hospital Course: He was placed in the intensive care unit because he needed a diltiazem drip. Otherwise his vital signs were normal. He was stable. He was asymptomatic from his fast heart rate. With the diltiazem drip his heart rate dropped into the 120s. I then began a history and physical and within an hour of being in ICU he spontaneously converted to normal sinus rhythm. For the rest of the evening he was in sinus rhythm with occasional brief 1-2 beats of sinus pauses. Diltiazem drip was stopped when he converted to sinus rhythm and he was given a single dose of Cardizem CD 120 mg p.o. The patient has a history of having sinus pauses with his rate lowering medicati on. Specifically metoprolol. I have carefully explained to him that his licensed midwife, for this moment, would like him on blood thinners to reduce his risk of stroke. I will be sending him home on Xarelto. I have also written a prescription for Cardizem CD. However, I do not need him to take this on a daily basis. I would like him to take it only when his heart rate is greater than 110 for greater than 10 minutes. His licensed midwife is Dr. Aparicio. Dr. Aparicio's office will be calling him next Wednesday or Wednesday to set up a follow-up appointment. He is currently without a primary care provider since Dr. Polanco has switched offices to the urgent care clinic. He has been referred to RONEN Daniels. However Madeleine Donnie is starting a new private practice. The patient can follow-up with her, follow-up with [facility] physicians on [address], or follow-up with a primary c are provider of his choice in [place]. [facility] was discussed. They have a new provider by the name of Presley Garcia MD. On physical examination he is an alert oriented, well-nourished well-developed male. He looks much younger than his stated age. He bicycles between [place] and the [place] [employer] regularly. Blood pressure is 110/58. Pulse is 42. Temperature is 37. Respirations 16. 95% on room air. Regular rate and rhythm with bradycardia. Clear lungs. Benign abdomen. - ALLERGIES Allergies/Adverse Reactions: Allergies Allergy/AdvReac Type Severity Reaction Status Date / Time No Known Drug Allergies Allergy Verified 11/15/20 19:18 - MEDICATIONS Home Medications: Ambulatory Orders Medication Instructions Recorded Confirmed Latanoprost 0.005% Ophth Drops 1 drop EACHEYE DAILY 03/05/14 11/15/20 [Xalatan Ophth Drops] Tamsulosin [Flomax] 0.4 mg PO DAILY 01/14/16 11/15/20 Aspirin [Adult Low Dose Aspirin EC] 81 mg PO DAILY 08/01/16 11/15/20 Flecainide [Tambocar] 50 mg PO BID 08/01/16 11/15/20 Dofetilide [Tikosyn] 500 mcg PO BID 11/15/20 11/15/20 Rivaroxaban [Xarelto] 20 mg PO DAILY #30 tablet 11/15/20 amLODIPine [Norvasc] 5 mg PO BID 11/15/20 11/15/20 diltiaZEM CD [Cardizem Cd] 120 mg PO DAILY #30 cap 11/15/20 - LABS Result Diagrams: 11/15/20 19:30 11/16/20 04:47
[2020-11-16] MEDS: amLODIPine 5 MG TABLET PO SCH (08:58)
[2020-11-16] MEDS ORDERED: DOFETILIDE 500 MCG PO SCH (09:00)
[2020-11-16] MEDS ORDERED: LATANOPROST 0.005% OPHTH DROPS EACHEYE SCH ×2 (09:00→21:00)
[2020-11-16] MEDS ORDERED: TAMSULOSIN 0.4 MG CAPSULE PO SCH (09:00)
[2020-11-16] MEDS ORDERED: ASPIRIN EC 81 MG TABLET PO SCH (09:00)
[2020-11-16 09:06] VITALS: BP 131/61
== END 2020-11-16 09:44 | disposition home or self-care (01) ==
LOC: ED 19:16 → ICU 20:48
PROVIDERS: ADMIT Specialist; ATTEND Internal Medicine
DX: I48.20 Chronic atrial fibrillation, unspecified (principal); I10 Essential (primary) hypertension; N40.0 Benign prostatic hyperplasia without lower urinary tract symptoms; E87.6 Hypokalemia; R00.1 Bradycardia, unspecified; F41.9 Anxiety disorder, unspecified; N40.1 Benign prostatic hyperplasia with lower urinary tract symptoms; R35.0 Frequency of micturition; R35.1 Nocturia; R39.15 Urgency of urination; R39.12 Poor urinary stream; Z20.822 Contact with and (suspected) exposure to COVID-19
CPT/HCPCS: 36415; 71045; 80048; 80053; 83690; 84484; 85025; 87150; 87631; 93005; 96365; 96366; 96376; 99285; A9270; G0378; 0202U

== ENCOUNTER 2021-01-29 02:39 | Emergency (ER) | payer MEDICARE, BC ==
--- OUTSIDE RECORDS SUMMARY | 2021-01-29 02:43 | EXTERNAL MEDICAL SUMMARY RPT | Continuity of Care Document ---
:1945 Demographics Phone Unavailable Preferred Language Unknown Marital Status Unknown Sabianist Affiliation Unknown Race Unknown Ethnic Group Unknown Author Organization [facility] Address [address] [place] [address] Phone Allergies Encounters Medications Problems Results
--- OUTSIDE RECORDS SUMMARY | 2021-01-29 02:45 | EXTERNAL MEDICAL SUMMARY RPT | Continuity of Care Document ---
:1945 Demographics Phone Unavailable Preferred Language Unknown Marital Status Unknown Rastafari Affiliation Unknown Race Unknown Ethnic Group Unknown Author Organization [facility] Address [address] [place] [address] Phone Allergies Encounters Medications Problems Results
[2021-01-29] MEDS ORDERED: SODIUM CHLORIDE 0.9% 1,000 ML IV STA ×2 (02:51→04:00)
[2021-01-29] MEDS ORDERED: diltiaZEM INJ 5 MG/ML VIAL IVP STA ×2 (02:52→03:18)
[2021-01-29 02:58] LABS: BASOPHILS # (AUTO) 0.1 10^3/uL (0.0-0.1); BASOPHILS % (AUTO) 0.6 %; EOSINOPHILS # (AUTO) 0.1 10^3/uL (0.0-0.7); HCT - HEMATOCRIT 45.3 % (42.0-52.0); HGB - HEMOGLOBIN 16.4 g/dL (14.0-18.0); LYMPHOCYTES # (AUTO) 2.4 10^3/uL (1.5-3.5); LYMPHOCYTES % (AUTO) 25.8 %; MEAN CORPUSCULAR HEMOGLOBIN 32.8 pg (27.0-31.0); MEAN CORPUSCULAR HGB CONC 36.2 g/dL (32.0-36.0); MEAN CORPUSCULAR VOLUME 90.6 fL (80.0-94.0); MEAN PLATELET VOLUME 9.5 fL (7.4-11.4); MONOCYTES # (AUTO) 1.3 10^3/uL (0.0-1.0); MONOCYTES % (AUTO) 14.3 %; NEUTROPHILS # (AUTO) 5.4 10^3/uL (1.5-6.6); NEUTROPHILS % (AUTO) 58.1 %; PLT - PLATELET COUNT 209 10^3/uL (130-450); RED CELL DISTRIBUTION WIDTH 12.3 % (12.0-15.0); WHITE BLOOD COUNT 9.3 x10^3/uL (4.8-10.8)
--- NOTE | 2021-01-29 03:02 | ED Physician Documentation ---
History of Present Illness - Stated complaint Stated Complaint: IRREGULAR HB - Chief complaint Chief Complaint: Cardiac - History obtained from History obtained from: Patient - Additonal information Additional information: 75-year-old man with history of atrial fibrillation on Eliquis since October presents with palpitations upon waking around midnight. Patient states that he has been feeling fine otherwise and is completely asymptomatic aside from palpitations. He has been compliant with his medications and has not missed a dose except for once 3 weeks ago. Review of Systems Ten Systems: 10 systems reviewed and negative Constitutional: denies: Fever, Chills Cardiac: reports: Palpitations. denies: Chest pain / pressure Respiratory: denies: Dyspnea, Cough GI: denies: Nausea Neurologic: denies: Focal weakness, Numbness, Confused PD PAST MEDICAL HISTORY - Past Medical History Past Medical History: Yes Cardiovascular: Hypertension, Atrial fibrillation Respiratory: Sleep apnea Endocrine/Autoimmune: None GI: None : Benign prostate hypertrophy HEENT: Glaucoma Psych: Depression, Anxiety Musculoskeletal: None Derm: None - Past Surgical History Past Surgical History: Yes HEENT: Tonsil/Adenoidectomy - Present Medications Home Medications: Ambulatory Orders Medication Instructions Recorded Confirmed Latanoprost 0.005% Ophth Drops 1 drop EACHEYE DAILY 03/05/14 01/29/21 [Xalatan Ophth Drops] Tamsulosin [Flomax] 0.4 mg PO DAILY 01/14/16 01/29/21 Dofetilide [Tikosyn] 500 mcg PO BID 11/15/20 01/29/21 Rivaroxaban [Xarelto] 20 mg PO DAILY #30 tablet 11/15/20 01/29/21 amLODIPine [Norvasc] 5 mg PO BID 11/15/20 01/29/21 diltiaZEM CD [Cardizem Cd] 120 mg PO DAILY #30 cap 11/15/20 01/29/21 Potassium Chloride [K-Dur] 20 meq PO DAILY 01/29/21 01/29/21 - Allergies Allergies/Adverse Reactions: Allergies Allergy/AdvReac Type Severity Reaction Status Date / Time No Known Drug Allergies Allergy Verified 11/15/20 19:18 - Social History Does the pt smoke?: No Smoking Status: Never smoker Does the pt drink ETOH?: No Does the pt have substance abuse?: No - Immunizations Immunizations are current?: Yes - POLST Patient has POLST: Yes POLST Status: Full Code (However, if he has multiple admissions with a deterioration in overall quality of life and that he can no longer thing for himself, feed himself, etc. to let him go) PD ED PE NORMAL - Vitals Vital signs reviewed: Yes - General General: Alert and oriented X 3, No acute distress, Well developed/nourished - HEENT HEENT: Atraumatic, PERRL, EOMI, Moist mucous membranes - Neck Neck: Supple, no meningeal sign - Cardiac Cardiac: Other (Tachycardic rate, irregularly irregular rhythm) - Respiratory Respiratory: No respiratory distress, Clear bilaterally - Abdomen Abdomen: Non tender, Non distended - Back Back: No CVA TTP - Derm Derm: Normal color - Extremities Extremities: No deformity - Neuro Neuro: Alert and oriented X 3 - Psych Psych: Normal mood, Normal affect Results - Vitals Vitals: Vital Signs - 24 hr 01/29/21 01/29/21 01/29/21 02:45 02:50 03:04 Temperature 36.7 C 36.7 C Heart Rate 140 H 140 H 117 H Respiratory 22 22 16 Rate Blood Pressure 158/67 H 158/67 H 129/75 O2 Saturation 95 95 96 01/29/21 01/29/21 01/29/21 03:13 03:22 03:29 Temperature 36.7 C 36.7 C 36.7 C Heart Rate 121 H 109 H 100 Respiratory 15 15 15 Rate Blood Pressure 137/79 H 141/97 H 129/73 O2 Saturation 95 97 98 01/29/21 01/29/21 01/29/21 03:30 03:41 03:51 Temperature Heart Rate 94 87 99 Respiratory 17 19 15 Rate Blood Pressure 147/82 H 123/72 117/55 L O2 Saturation 98 99 98 01/29/21 01/29/21 01/29/21 03:52 03:54 04:00 Temperature 36.7 C Heart Rate 48 L 46 L 45 L Respiratory 13 16 17 Rate Blood Pressure 119/57 L 119/57 L 113/55 L O2 Saturation 93 96 97 Oxygen O2 Source Room air - EKG (time done) 0245 Rate: Rate (enter#) (138) Rhythm: Atrial fibrillation Other comments: Other comments (QTc 488) 0350 Rate: Rate (enter#) (47) Rhythm: Sinus bradycardia [place]: Normal Intervals: Normal VT QRS: Normal Other comments: Other comments (qt/qtc 458/405) - Labs Labs: Laboratory Tests 01/29/21 01/29/21 01/29/21 02:40 02:40 02:40 WBC 9.3 RBC 5.00 Hgb 16.4 Hct 45.3 MCV 90.6 MCH 32.8 H MCHC 36.2 H RDW 12.3 Plt Count 209 MPV 9.5 Neut # (Auto) 5.4 Lymph # (Auto) 2.4 [place] # (Auto) 1.3 H Eos # (Auto) 0.1 Baso # (Auto) 0.1 Absolute Nucleated RBC 0.00 Nucleated RBC % 0.0 Sodium 140 Potassium 3.4 L Chloride 104 Carbon Dioxide 23 Anion Gap 13.0 BUN 26 H Creatinine 0.8 Estimated GFR (MDRD) 95 Glucose 118 H Calcium 9.3 Total Bilirubin 1.7 H AST 29 ALT 32 Alkaline Phosphatase 68 Troponin I High Sens 7.4 Total Protein 7.8 Albumin 4.8 Globulin 3.0 Albumin/Globulin Ratio 1.6 Lipase 30 Procedures - Cardioversion Attempt 1 Indication: Tachyarrhythmia Risks, benefits, alternatives explained to: Pt Prep: IV, O2, substation electrician, Pulse ox, Airway equip Meds: Propofol (50) CS via: Pads, AP approach Sync: Biphasic, 150j Post cardioversion rhythm: NSR Complications: No: Contact burn, Apnea, Hypotension Performed by: ED MD PD MEDICAL DECISION MAKING - ED course ED course: 75-year-old man presented with A. fib with RVR. IV cardizem X 2 with limited effectiveness therefore we electrical cardioverted with procedural sedation with successful return to NSR. Patient completely returned to consciousness. Family will pick him up. He will f/u with his primary doctor tomorrow. return precautions given. Departure - Departure Disposition: 01 Home, Self Care Clinical Impression: Atrial fibrillation, Palpitations Condition: Good Instructions: Atrial Fibrillation Dc, Sedation Procedural Comments: You are seen in the emergency department for atrial fibrillation with rapid ventricular rate. We gave you IV Cardizem and then after obtaining consent you underwent electrical cardioversion under procedural sedation. Your heart rate returned to a normal rhythm after the procedure. Please follow-up with Dr. Aparicio tomorrow to make an appointment. You need to make it a priority to clarify which medications should be taken daily and which are to be taken only as needed. Return to the emergency department if you experience any new or worsening symptoms or have other concerns.
[2021-01-29 03:14] LABS: ALBUMIN 4.8 g/dL (3.2-5.5); ALBUMIN/GLOBULIN RATIO 1.6 (1.0-2.2); BILIRUBIN,TOTAL 1.7 mg/dL (0.2-1.0); CALCIUM 9.3 mg/dL (8.5-10.3); CREATININE 0.8 mg/dL (0.6-1.2); POTASSIUM 3.4 mmol/L (3.5-5.0); TOTAL PROTEIN 7.8 g/dL (6.7-8.2)
[2021-01-29] MEDS ORDERED: PROPOFOL 200 MG/20 ML VIAL IVP STA (03:29)
[2021-01-29 05:16] VITALS: BP 119/59
--- NOTE | 2021-01-29 08:33 | XRAY Report ---
PROCEDURE: Chest 1 View X-Ray INDICATIONS: Chest pain TECHNIQUE: One view of the chest was acquired. COMPARISON: None FINDINGS: Surgical changes and devices: Loop recorder versus leadless pacemaker over the left heart. Lungs and pleura: No pleural effusions or pneumothorax. Lungs are clear. Mediastinum: Mediastinal contours appear normal. Heart size is normal. Bones and chest wall: No suspicious bony lesions. Overlying soft tissues appear unremarkable. IMPRESSION: No acute cardiopulmonary process demonstrated radiographically. Reviewed by: Ashu Wright MD on 01/29/2021 8:32 AM PDT Approved by: Ashu Wright MD on 01/29/2021 8:32 AM PDT Station ID: [id number]
== END 2021-01-29 05:27 | disposition home or self-care (01) ==
LOC: ED 02:39
DX: I48.91 Unspecified atrial fibrillation (principal); Z79.01 Long term (current) use of anticoagulants
CPT/HCPCS: 36415; 80053; 83690; 84484; 85025; 92960; 93005; 94770

== ENCOUNTER 2021-01-30 08:00 | Outpatient (CLI) | payer MEDICARE, BC ==
[2021-01-30 17:42] LABS: BASOPHILS % (AUTO) 0.6 %; EOSINOPHILS # (AUTO) 0.1 10^3/uL (0.0-0.7); HCT - HEMATOCRIT 42.6 % (42.0-52.0); HGB - HEMOGLOBIN 14.5 g/dL (14.0-18.0); LYMPHOCYTES # (AUTO) 1.9 10^3/uL (1.5-3.5); LYMPHOCYTES % (AUTO) 31.2 %; MEAN CORPUSCULAR HEMOGLOBIN 31.9 pg (27.0-31.0); MEAN CORPUSCULAR VOLUME 93.8 fL (80.0-94.0); MEAN PLATELET VOLUME 10.6 fL (7.4-11.4); MONOCYTES # (AUTO) 0.5 10^3/uL (0.0-1.0); MONOCYTES % (AUTO) 8.4 %; NEUTROPHILS # (AUTO) 3.6 10^3/uL (1.5-6.6); NEUTROPHILS % (AUTO) 58.2 %; PLT - PLATELET COUNT 207 10^3/uL (130-450); RED BLOOD COUNT 4.54 10^6/uL (4.70-6.10); RED CELL DISTRIBUTION WIDTH 12.6 % (12.0-15.0); WHITE BLOOD COUNT 6.2 x10^3/uL (4.8-10.8)
[2021-01-30 18:18] LABS: ALBUMIN 4.7 g/dL (3.2-5.5); ALBUMIN/GLOBULIN RATIO 1.7 (1.0-2.2); ALKALINE PHOSPHATASE 66 IU/L (42-121); ALT ALANINE AMINOTRANSFERASE 27 IU/L (10-60); AST ASPARTATE AMINOTRANSFERASE 26 IU/L (10-42); BILIRUBIN,TOTAL 2.1 mg/dL (0.2-1.0); BUN - BLOOD UREA NITROGEN 21 mg/dL (6-20); CALCIUM 8.8 mg/dL (8.5-10.3); CARBON DIOXIDE - CO2 26 mmol/L (21-32); CHLORIDE 104 mmol/L (101-111); CHOL/HDL RATIO 5.2 (<5.0); CHOLESTEROL 177 mg/dL; CREATININE 0.8 mg/dL (0.6-1.2); GFR - MDRD 95 (>89); GLUCOSE 112 mg/dL (70-100); HDL CHOLESTEROL 34 mg/dL; LDL CHOLESTEROL,CALCULATED 109 mg/dL; LDL/HDL RATIO 3.2 (<3.6); SODIUM 139 mmol/L (135-145); TOTAL PROTEIN 7.4 g/dL (6.7-8.2); TRIGLYCERIDES 171 mg/dL; VLDL CHOLESTEROL 34 mg/dL
[2021-01-30 18:22] LABS: THYROID STIMULATING HORMONE 1.78 uIU/mL (0.34-5.60)
== END 2021-01-30 23:59 | disposition home or self-care (01) ==
LOC: LAB.WCP 08:00
PROVIDERS: ATTEND Physician Assistant Medical
DX: R73.01 Impaired fasting glucose (principal); Z79.899 Other long term (current) drug therapy; I48.0 Paroxysmal atrial fibrillation; N40.0 Benign prostatic hyperplasia without lower urinary tract symptoms
CPT/HCPCS: 36415; 80053; 80061; 84443; 85025; G0103; 83721; 84153

== ENCOUNTER 2021-06-25 19:05 | Emergency (ER) | payer MEDICARE, BC ==
[2021-06-25] MEDS ORDERED: diltiaZEM INJ 5 MG/ML VIAL IVP STA ×2 (19:25→20:30)
[2021-06-25] MEDS ORDERED: SODIUM CHLORIDE 0.9% 1,000 ML IV STA (19:25)
[2021-06-25 19:38] LABS: BASOPHILS # (AUTO) 0.1 10^3/uL (0.0-0.1); BASOPHILS % (AUTO) 0.6 %; EOSINOPHILS # (AUTO) 0.1 10^3/uL (0.0-0.7); EOSINOPHILS % (AUTO) 0.8 %; HCT - HEMATOCRIT 48.8 % (42.0-52.0); HGB - HEMOGLOBIN 17.2 g/dL (14.0-18.0); LYMPHOCYTES # (AUTO) 2.3 10^3/uL (1.5-3.5); LYMPHOCYTES % (AUTO) 27.1 %; MEAN CORPUSCULAR HEMOGLOBIN 32.5 pg (27.0-31.0); MEAN CORPUSCULAR HGB CONC 35.2 g/dL (32.0-36.0); MEAN CORPUSCULAR VOLUME 92.2 fL (80.0-94.0); MONOCYTES # (AUTO) 0.8 10^3/uL (0.0-1.0); MONOCYTES % (AUTO) 9.7 %; NEUTROPHILS # (AUTO) 5.2 10^3/uL (1.5-6.6); NEUTROPHILS % (AUTO) 61.4 %; PLT - PLATELET COUNT 233 10^3/uL (130-450); RED BLOOD COUNT 5.29 10^6/uL (4.70-6.10); RED CELL DISTRIBUTION WIDTH 12.3 % (12.0-15.0); WHITE BLOOD COUNT 8.5 x10^3/uL (4.8-10.8)
[2021-06-25] MEDS ORDERED: diltiaZEM CD 120 MG CAPSULE PO STA (19:44)
--- NOTE | 2021-06-25 19:52 | ED Physician Documentation ---
History of Present Illness - Stated complaint Stated Complaint: AFIB - Chief complaint Chief Complaint: Cardiac - History obtained from History obtained from: Patient - Additonal information Additional information: Patient comes emergency department chief complaint of palpitations that started a few hours ago. Patient has a history of chronic A. fib and is scheduled for an ablation the day after tomorrow. He has previously been on flecainide and is currently on Dofetilide. Patient states he has not taken his dose of dofetilide yet tonight. The patient denies chest pain or shortness of breath. He states he is otherwise feeling just fine. No other complaints at this time. Review of Systems Ten Systems: 10 systems reviewed and negative Constitutional: reports: Reviewed and negative Eyes: reports: Reviewed and negative Ears: reports: Reviewed and negative Nose: reports: Reviewed and negative Throat: reports: Reviewed and negative Cardiac: reports: Palpitations. denies: Chest pain / pressure Respiratory: reports: Reviewed and negative GI: reports: Reviewed and negative : reports: Reviewed and negative Skin: reports: Reviewed and negative Musculoskeletal: reports: Reviewed and negative Neurologic: reports: Reviewed and negative Psychiatric: reports: Reviewed and negative Endocrine: reports: Reviewed and negative Immunocompromised: reports: Reviewed and negative PD PAST MEDICAL HISTORY - Past Medical History Past Medical History: Yes Cardiovascular: Hypertension, Atrial fibrillation Respiratory: Sleep apnea Endocrine/Autoimmune: None GI: None : Benign prostate hypertrophy HEENT: Glaucoma Psych: Depression, Anxiety Musculoskeletal: None Derm: None - Past Surgical History Past Surgical History: Yes HEENT: Tonsil/Adenoidectomy - Present Medications Home Medications: Ambulatory Orders Medication Instructions Recorded Confirmed Latanoprost 0.005% Ophth Drops 1 drop EACHEYE DAILY 03/05/14 06/25/21 [Xalatan Ophth Drops] Tamsulosin [Flomax] 0.4 mg PO DAILY 01/14/16 06/25/21 Dofetilide [Tikosyn] 500 mcg PO BID 11/15/20 06/25/21 Rivaroxaban [Xarelto] 20 mg PO DAILY #30 tablet 11/15/20 06/25/21 amLODIPine [Norvasc] 5 mg PO BID 11/15/20 06/25/21 Potassium Chloride [K-Dur] 20 meq PO DAILY 01/29/21 06/25/21 Latanoprost/Pf [Latanoprost 0.005% 7.5 ml OP DAILY 06/25/21 06/25/21 Eye Drop] Potassium Chloride 20 meq PO DAILY 06/25/21 06/25/21 - Allergies Allergies/Adverse Reactions: Allergies Allergy/AdvReac Type Severity Reaction Status Date / Time No Known Drug Allergies Allergy Verified 06/25/21 19:20 - Social History Does the pt smoke?: No Smoking Status: Never smoker Does the pt drink ETOH?: No Does the pt have substance abuse?: No - Immunizations Immunizations are current?: Yes - POLST Patient has POLST: Yes POLST Status: Full Code (However, if he has multiple admissions with a deterioration in overall quality of life and that he can no longer thing for himself, feed himself, etc. to let him go) PD ED PE NORMAL - Vitals Vital signs reviewed: Yes - General General: Alert and oriented X 3, No acute distress, Well developed/nourished - HEENT HEENT: Atraumatic, PERRL, EOMI, Moist mucous membranes - Neck Neck: Supple, no meningeal sign - Cardiac Cardiac: No murmur, Other (Irregular rate and rhythm, tachycardic) - Respiratory Respiratory: No respiratory distress, Clear bilaterally - Abdomen Abdomen: Soft, Non tender, Non distended - Derm Derm: Normal color, Warm and dry, No rash - Extremities Extremities: No deformity, No edema - Neuro Neuro: Alert and oriented X 3, medical equipment technician 2-12 intact, Normal speech - Psych Psych: Normal mood, Normal affect Results - Vitals Vitals: Oxygen O2 Source Room air - EKG (time done) 1905 Rate: Rate (enter#) (167) Rhythm: Atrial fibrillation [place]: Normal Intervals: Normal DC QRS: LVH Ischemia: Normal ST segments Compare to prior EKG: Old EKG unavailable Computer interpretation: Disagree with computer (Computer reads "SVT". QRS complexes are not evenly spaced and appear much more consistent with atrial fibrillation.) - Labs Labs: Laboratory Tests 06/25/21 06/25/21 06/25/21 19:24 19:24 19:24 WBC 8.5 RBC 5.29 Hgb 17.2 Hct 48.8 MCV 92.2 MCH 32.5 H MCHC 35.2 RDW 12.3 Plt Count 233 MPV 10.0 Neut # (Auto) 5.2 Lymph # (Auto) 2.3 [place] # (Auto) 0.8 Eos # (Auto) 0.1 Baso # (Auto) 0.1 Absolute Nucleated RBC 0.00 Nucleated RBC % 0.0 Sodium 142 Potassium 3.1 L Chloride 100 L Carbon Dioxide 29 Anion Gap 13.0 BUN 25 H Creatinine 0.9 Estimated GFR (MDRD) 82 L Glucose 155 H Calcium 9.9 Total Bilirubin 2.1 H AST 33 ALT 34 Alkaline Phosphatase 80 Troponin I High Sens 7.7 B-Natriuretic Peptide Total Protein 8.8 H Albumin 5.6 H Globulin 3.2 Albumin/Globulin Ratio 1.8 Lipase 42 06/25/21 19:24 WBC RBC Hgb Hct MCV MCH MCHC RDW Plt Count MPV Neut # (Auto) Lymph # (Auto) [place] # (Auto) Eos # (Auto) Baso # (Auto) Absolute Nucleated RBC Nucleated RBC % Sodium Potassium Chloride Carbon Dioxide Anion Gap BUN Creatinine Estimated GFR (MDRD) Glucose Calcium Total Bilirubin AST ALT Alkaline Phosphatase Troponin I High Sens B-Natriuretic Peptide 48 Total Protein Albumin Globulin Albumin/Globulin Ratio Lipase PD MEDICAL DECISION MAKING - ED course Complexity details: reviewed results, re-evaluated patient, considered differential, d/w patient ED course: Patient was worked up with labs which were unremarkable. He was treated for A. fib with RVR with 2 doses of diltiazem IV, as well as an oral dose. This did get the patient's rate controlled at 80-105 bpm. The patient was feeling better and asymptomatic and I felt he was stable for discharge home. We have discussed the need to continue the plan for a ablation with his filling station attendant day after tomorrow. We discussed the usual indications for return. Patient is instructed that he should take his dofetilide when he gets home. Departure - Departure Disposition: Home, Self Care Clinical Impression: Atrial fibrillation with RVR Condition: Stable Instructions: Atrial Fibrillation Dc Comments: Your heart rate has responded well to the medicine we have given you today. It is very important that you take your regular heart medicine as soon as you get home, also. Please continue your plans to follow-up the day after tomorrow for your a ablation. If you feel that your heart is going excessively fast again, or if you develop chest pain or shortness of breath, please return to the emergency department. Discharge Date/Time: 06/25/21 21:45
[2021-06-25 19:57] LABS: ALBUMIN 5.6 g/dL (3.2-5.5); ALBUMIN/GLOBULIN RATIO 1.8 (1.0-2.2); BILIRUBIN,TOTAL 2.1 mg/dL (0.2-1.0); CALCIUM 9.9 mg/dL (8.5-10.3); CREATININE 0.9 mg/dL (0.6-1.2); POTASSIUM 3.1 mmol/L (3.5-5.0); TOTAL PROTEIN 8.8 g/dL (6.7-8.2)
--- NOTE | 2021-06-25 20:05 | XRAY Report ---
PROCEDURE: Chest 1 View X-Ray INDICATIONS: Chest Pain TECHNIQUE: One view of the chest was acquired. COMPARISON: Chest x-ray one view, 01/29/2021. FINDINGS: Surgical changes and devices: None. Lungs and pleura: No pleural effusions or pneumothorax. Lungs are clear. Mediastinum: Mediastinal contours appear normal. Heart size is normal. Bones and chest wall: No suspicious bony lesions. Overlying soft tissues appear unremarkable. IMPRESSION: No acute cardiopulmonary disease. Reviewed by: Constance Crisostomo MD on 06/25/2021 8:03 PM PDT Approved by: Constance Crisostomo MD on 06/25/2021 8:03 PM PDT Station ID: [id number]
[2021-06-25] MEDS ORDERED: diltiaZEM CD 120 MG CAPSULE PO ONE (20:09)
[2021-06-25 21:52] VITALS: BP 144/76
== END 2021-06-25 21:45 | disposition home or self-care (01) ==
LOC: ED 19:05
DX: I48.20 Chronic atrial fibrillation, unspecified (principal); Z79.01 Long term (current) use of anticoagulants; I10 Essential (primary) hypertension
CPT/HCPCS: 36415; 71045; 80053; 83690; 83880; 84484; 85025; 93005; 96374; 96376; 99283; 99284; A9270

== ENCOUNTER 2021-07-08 07:00 | Outpatient (CLI) | payer MEDICARE, BC | END 2021-07-08 23:59 | disposition home or self-care (01) | LOC: LAB 07:00 | PROVIDERS: ATTEND Family Medicine | DX: U07.1 COVID-19 (principal) ==

== ENCOUNTER 2021-07-08 17:34 | Outpatient (CLI) | payer MEDICARE, BC ==
--- NOTE | 2021-07-09 11:34 | XRAY Report ---
PROCEDURE: Chest 2 View X-Ray INDICATIONS: COUGH TECHNIQUE: 2 view(s) of the chest. COMPARISON: Chest x-ray 06/25/2021 FINDINGS: Surgical changes and devices: Wireless pacer. Lungs and pleura: Mild to moderate appearance of bilateral patchy pulmonary opacities. Mediastinum: Mediastinal contours are normal. Heart size is enlarged. Bones and chest wall: No suspicious bony abnormalities. Soft tissues appear unremarkable. IMPRESSION: Bilateral pulmonary opacities suggestive of pneumonia. Reviewed by: Judy Amador MD on 07/09/2021 11:33 AM PST Approved by: Judy Amador MD on 07/09/2021 11:33 AM PST Station ID: [id number]
== END 2021-07-08 23:59 | disposition home or self-care (01) ==
LOC: DI.N 17:34
PROVIDERS: ATTEND Family Medicine
DX: R05.9 Cough, unspecified (principal); R91.8 Other nonspecific abnormal finding of lung field; U07.1 COVID-19
CPT/HCPCS: 71046; U0004

== ENCOUNTER 2021-07-09 08:06 | Inpatient (IN) | payer MEDICARE, BC ==
[2021-07-09] MEDS ORDERED: ACETAMINOPHEN 325 MG TABLET PO STA (08:45)
[2021-07-09 08:50] LABS: BASOPHILS % (AUTO) 0.2 %; HCT - HEMATOCRIT 35.9 % (42.0-52.0); HGB - HEMOGLOBIN 12.6 g/dL (14.0-18.0); LYMPHOCYTES # (AUTO) 0.7 10^3/uL (1.5-3.5); LYMPHOCYTES % (AUTO) 12.5 %; MEAN CORPUSCULAR HEMOGLOBIN 32.6 pg (27.0-31.0); MEAN CORPUSCULAR HGB CONC 35.1 g/dL (32.0-36.0); MEAN CORPUSCULAR VOLUME 92.8 fL (80.0-94.0); MEAN PLATELET VOLUME 9.7 fL (7.4-11.4); MONOCYTES # (AUTO) 0.4 10^3/uL (0.0-1.0); NEUTROPHILS # (AUTO) 4.1 10^3/uL (1.5-6.6); NEUTROPHILS % (AUTO) 78.7 %; PLT - PLATELET COUNT 166 10^3/uL (130-450); RED BLOOD COUNT 3.87 10^6/uL (4.70-6.10); WHITE BLOOD COUNT 5.3 x10^3/uL (4.8-10.8)
--- NOTE | 2021-07-09 09:06 | ED Physician Documentation ---
PD HPI URI - Stated complaint Stated Complaint: COUGH/SOA - Chief complaint Chief Complaint: Resp - History obtained from History obtained from: Patient - History of Present Illness Timing - onset: How many weeks ago (1) Timing duration: Weeks (1) Timing details: Gradual onset, Still present Associated symptoms: Fever, Nasal congestion, Sore throat, Dry cough, Dyspnea Contributing factors: Unimmunized Improves by: Rest Worsened by: Activity Similar symptoms before: Has not had sx before Recently seen: Surgery - Additional information Additional information: 76-year old unvaccinated male with history of hypertension has had a recent ablation for atrial fibrillation about 2 weeks ago. Shortly after returning from the hospital the patient developed a cough he has developed progressive symptoms of cough congestion shortness of breath and fever. He is gone in to see his primary care doctor yesterday and found to have pneumonia on his x-ray. He was thought to have Covid and is referred to the emergency department today for Regeneron. Yesterday he was hypoxic with an O2 saturation of 90% on room air. Review of Systems Constitutional: reports: Fever, Chills, Myalgias, Fatigue Eyes: denies: Decreased vision Ears: denies: Ear pain Nose: reports: Congestion. denies: Rhinorrhea / runny nose Throat: reports: Sore throat Cardiac: denies: Chest pain / pressure, Palpitations Respiratory: reports: Dyspnea, Cough, Wheezing GI: denies: Abdominal Pain, Nausea, Vomiting, Constipation, Diarrhea : denies: Dysuria, Frequency PD PAST MEDICAL HISTORY - Past Medical History Past Medical History: Yes Cardiovascular: Hypertension, Atrial fibrillation Respiratory: Sleep apnea, CPAP use Neuro: None Endocrine/Autoimmune: None GI: None : Benign prostate hypertrophy HEENT: Glaucoma Psych: Depression, Anxiety Musculoskeletal: None Derm: None - Past Surgical History Past Surgical History: Yes Cardiovascular: Cardiac catheterization, Other HEENT: Tonsil/Adenoidectomy - Present Medications Home Medications: Ambulatory Orders Medication Instructions Recorded Confirmed Latanoprost 0.005% Ophth Drops 1 drop EACHEYE DAILY 03/05/14 07/09/21 [Xalatan Ophth Drops] Tamsulosin [Flomax] 0.4 mg PO DAILY 01/14/16 07/09/21 Dofetilide [Tikosyn] 500 mcg PO BID 11/15/20 07/09/21 Rivaroxaban [Xarelto] 20 mg PO DAILY #30 tablet 11/15/20 07/09/21 amLODIPine [Norvasc] 5 mg PO BID 11/15/20 07/09/21 Potassium Chloride [K-Dur] 20 meq PO DAILY 01/29/21 07/09/21 Brimonidine 0.2% Ophth Drops 75 drops EACHEYE DAILY 07/09/21 07/09/21 [Alphagan P 0.2% Ophth Drops] - Allergies Allergies/Adverse Reactions: Allergies Allergy/AdvReac Type Severity Reaction Status Date / Time No Known Drug Allergies Allergy Verified 07/09/21 08:28 - Social History Does the pt smoke?: No Smoking Status: Never smoker Does the pt drink ETOH?: No Does the pt have substance abuse?: No - Immunizations Immunizations are current?: No - POLST Patient has POLST: Yes POLST Status: Full Code (However, if he has multiple admissions with a deterioration in overall quality of life and that he can no longer thing for himself, feed himself, etc. to let him go) PD ED PE NORMAL - Vitals Vital signs reviewed: Yes (Febrile tachypneic hypoxic and with a wide pulse pressure) - General General: Alert and oriented X 3, No acute distress, Well developed/nourished - HEENT HEENT: Atraumatic, PERRL, EOMI - Neck Neck: Supple, no meningeal sign, No bony TTP - Cardiac Cardiac: RRR, No murmur - Respiratory Respiratory: Other (Tachypneic with bilateral scattered rhonchi and rails) - Abdomen Abdomen: Normal bowel sounds, Soft, Non tender, Non distended, No organomegaly - Back Back: No CVA TTP, No spinal TTP - Derm Derm: Normal color, Warm and dry, No rash - Extremities Extremities: No deformity, No edema - Neuro Neuro: Alert and oriented X 3, pickle pumper 2-12 intact, No motor deficit, No sensory deficit, Normal speech Eye Opening: Spontaneous Motor: Obeys Commands Verbal: Oriented GCS Score: 15 - Psych Psych: Normal mood, Normal affect Results - Vitals Vitals: Vital Signs - 24 hr 07/09/21 07/09/21 07/09/21 08:28 08:48 09:38 Temperature 38.9 C H 37.7 C Heart Rate 69 64 66 Respiratory 26 H 31 H 27 H Rate Blood Pressure 130/56 L 125/52 L 124/58 L O2 Saturation 87 L 94 91 L 07/09/21 10:48 Temperature Heart Rate 62 Respiratory 27 H Rate Blood Pressure 117/55 L O2 Saturation 91 L Oxygen O2 Source Nasal cannula Oxygen Flow Rate 4 - Labs Labs: Laboratory Tests 07/09/21 07/09/21 07/09/21 08:40 08:40 08:45 WBC 5.3 RBC 3.87 L Hgb 12.6 L Hct 35.9 L MCV 92.8 MCH 32.6 H MCHC 35.1 RDW 12.0 Plt Count 166 MPV 9.7 Neut # (Auto) 4.1 Lymph # (Auto) 0.7 L Harmon # (Auto) 0.4 Eos # (Auto) 0.0 Baso # (Auto) 0.0 Absolute Nucleated RBC 0.00 Nucleated RBC % 0.0 Sodium 135 Potassium 3.8 Chloride 101 Carbon Dioxide 23 Anion Gap 11.0 BUN 19 Creatinine 1.0 Estimated GFR (MDRD) 73 L Glucose 126 H Calcium 8.3 L Total Bilirubin 1.6 H AST 32 ALT 35 Alkaline Phosphatase 58 Total Protein 6.7 Albumin 3.7 Globulin 3.0 Albumin/Globulin Ratio 1.2 Lipase 47 Nasal Adenovirus (PCR) NOT DETECTED Nasal B. parapertussis DNA (PCR) NOT DETECTED Nasal Coronavir 229E PCR NOT DETECTED Nasal Coronavir HKU1 PCR NOT DETECTED Nasal Coronavir NL63 PCR NOT DETECTED Nasal Coronavir OC43 PCR NOT DETECTED Nasal Enterovir/Rhinovir PCR NOT DETECTED Nasal Influenza B PCR NOT DETECTED Nasal Influenza A PCR NOT DETECTED Nasal Parainfluen 1 PCR NOT DETECTED Nasal Parainfluen 2 PCR NOT DETECTED Nasal Parainfluen 3 PCR NOT DETECTED Nasal Parainfluen 4 PCR NOT DETECTED Nasal RSV (PCR) NOT DETECTED Nasal B.pertussis DNA PCR NOT DETECTED Nasal C.pneumoniae (PCR) NOT DETECTED Kody Human Metapneumo PCR NOT DETECTED Nasal M.pneumoniae (PCR) NOT DETECTED Nasal SARS-CoV-2 (PCR) DETECTED A - Rads (name of study) chest Radiology: Prelim report reviewed (Impression: Unchanged patchy bilateral pulmonary infiltrates suspicious for COVID-19 pneumonia.), EMP read indepedently, See rad report PD MEDICAL DECISION MAKING - ED course Complexity details: reviewed old records, reviewed results, re-evaluated patient, considered differential, d/w patient ED course: 76-year-old male with a recent ablation he is unimmunized and has Covid. He is hypoxic. He is not a candidate for Regeneron. He will need to come into the hospital. Departure - Departure Disposition: 66 [facility] DC/Xfer Clinical Impression: COVID-19 Condition: Fair
--- NOTE | 2021-07-09 09:06 | XRAY Report ---
PROCEDURE: Chest 1 View X-Ray INDICATIONS: chest pain TECHNIQUE: One view of the chest was acquired. COMPARISON: 07/08/2021 FINDINGS: Surgical changes and devices: None. Lungs and pleura: No pleural effusions or pneumothorax. Patchy bilateral pulmonary infiltrates are s uspicious for viral pneumonia such as Covid 19 pneumonia. Findings are not significantly changed. Mediastinum: Mediastinal contours appear normal. Top normal heart size, unchanged. Bones and chest wall: No suspicious bony lesions. Overlying soft tissues appear unremarkable. IMPRESSION: Unchanged patchy bilateral pulmonary infiltrates suspicious for Covid 19 pneumonia. Reviewed by: Jairo Diaz MD on 07/09/2021 9:05 AM PST Approved by: Jairo Diaz MD on 07/09/2021 9:05 AM PST Station ID: [id number]
[2021-07-09 09:08] LABS: ALBUMIN 3.7 g/dL (3.2-5.5); ALBUMIN/GLOBULIN RATIO 1.2 (1.0-2.2); BILIRUBIN,TOTAL 1.6 mg/dL (0.2-1.0); CALCIUM 8.3 mg/dL (8.5-10.3); POTASSIUM 3.8 mmol/L (3.5-5.0); TOTAL PROTEIN 6.7 g/dL (6.7-8.2)
[2021-07-09] MEDS ORDERED: amLODIPine 5 MG TABLET PO STA (09:45)
[2021-07-09] MEDS ORDERED: POTASSIUM CHLORIDE 20 MEQ TABLET PO STA (09:46)
[2021-07-09] MEDS ORDERED: RIVAROXABAN 15 MG TABLET PO STA (09:46)
[2021-07-09] MEDS ORDERED: APIXABAN 5 MG TABLET PO STA (10:03)
[2021-07-09 10:47] LABS: CORONAVIRUS 229E-RESP PCR NOT DETECTED; CORONAVIRUS HKU1-RESP PCR NOT DETECTED; CORONAVIRUS NL63-RESP PCR NOT DETECTED; CORONAVIRUS OC43-RESP PCR NOT DETECTED
[2021-07-09 10:48] LABS: B. PARAPERTUSSIS- RESP PCR PAN NOT DETECTED; B. PERTUSSIS- RESP PCR PANEL NOT DETECTED; C. PNEUMONIAE- RESP PCR PANEL NOT DETECTED; HUMAN METAPNEUMOVIRUS NOT DETECTED; INFLUENZA A- RESP PCR PANEL NOT DETECTED; INFLUENZA B - RESP PCR PANEL NOT DETECTED; M. PNEUMONIAE- RESP PCR PANEL NOT DETECTED; PARAINFLUENZA VIRUS 1 NOT DETECTED; PARAINFLUENZA VIRUS 2 NOT DETECTED; PARAINFLUENZA VIRUS 3 NOT DETECTED; PARAINFLUENZA VIRUS 4 NOT DETECTED; RHINOVIRUS/ENTEROVIRUS NOT DETECTED; RSV- RESP PCR PANEL NOT DETECTED; SARS-CoV-2 -RESP PCR PANEL DETECTED
[2021-07-09] MEDS ORDERED: SODIUM CHLORIDE FLUSH 0.9% 10 ML SYRINGE IVP PRN (11:19)
[2021-07-09] MEDS ORDERED: ACETAMINOPHEN 325 MG TABLET PO PRN (11:19)
[2021-07-09] MEDS ORDERED: ONDANSETRON 4 MG/2 ML VIAL IVP PRN (11:19)
--- NOTE | 2021-07-09 11:44 | HISTORY & PHYSICAL EXAMINATION ---
Chief Complaint - Chief Complaint Chief Complaint: SOB History of Present Illness - Admitted From Admitted From:: Medical floor - History Obtained From Records Reviewed: [facility] History obtained from: Pt Exam Limitations: no - History of Present Illness HPI Comment/Other: THis is a 76-year old male with A medical history Significantly of hypertension, atrial fibrillation which pt had an ablation for about 2 weeks at [facility], BPH, sleep apnea with CPAP use in the home, glaucoma, depression and anxiety Who Presents to the ER for shortness of breathing, hypoxia for his COVID-19 infection. pt is unvaccinated. Pt report shortly after returning from the hospital where he had an ablation for his atrial fibrillation, he developed cough and shortness of breathing, then his symptoms has been gradually progre ssive worsen, more shortness of breath, cough. Pt went to see his primary care doctor yesterday and was referred to the emergency department today for Regeneron. ER provider review pt is not a candidate for Regeneron. pt denies chest pain, abdominal pain. In ER, patient was found febrile at 38.9 te mperature, Tachypnea with RR26, And 87% oxygen saturation on room air. Chest x- ray revealed bilaterally pulmonary opacities suggestive of pneumonia. Covid 19 test is positive. Discussed the care goal with the patient, patient wanted to be full code History - Past Medical History Cardiovascular: reports: Hypertension, Atrial fibrillation Respiratory: reports: Sleep apnea, CPAP use Neuro: reports: None Endocrine/Autoimmune: reports: None GI: reports: None : reports: Benign prostate hypertrophy HEENT: reports: Glaucoma Psych: reports: Depression, Anxiety Musculoskeletal: reports: None Derm: reports: None MRSA Hx?: No - Past Surgical History Cardiovascular: reports: Cardiac catheterization, Other HEENT: reports: Tonsil/Adenoidectomy - Family & Social History Family History: Mother: , Father: Family History Comment/Other: Mom had breast cancer and skin cancer on her nose. She eventually of ischemic cardiomyopathy at age 87. Dad in his 88 of complications of Alzheimer's and a ruptured brain aneurysm. 1 brother and 1 sister. Sister has diabetes. Brother is healthy without any major medical issues. No children Living Situation: Alone Social History Notes: Single gentleman. Lives alone. 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 No history of tobacco abuse, alcohol abuse or recreational substance abuse.He retired age 69. He does not have a designated power of litigation attorney associate. But he states that his brother who lives in [place], and his sister who lives in [place] would be able to speak for him. - Substance History Use: Uses substance without health or social issues: NONE - POLST Patient has POLST: Yes POLST Status: Full Code (However, if he has multiple admissions with a deterioration in overall quality of life and that he can no longer thing for himself, feed himself, etc. to let him go) Meds/Allgy - Home Medications Home Medications: Ambulatory Orders Medication Instructions Recorded Confirmed Latanoprost 0.005% Ophth Drops 1 drop EACHEYE DAILY 03/05/14 07/09/21 [Xalatan Ophth Drops] Tamsulosin [Flomax] 0.4 mg PO DAILY 01/14/16 07/09/21 Dofetilide [Tikosyn] 500 mcg PO BID 11/15/20 07/09/21 Rivaroxaban [Xarelto] 20 mg PO DAILY #30 tablet 11/15/20 07/09/21 amLODIPine [Norvasc] 5 mg PO BID 11/15/20 07/09/21 Potassium Chloride [K-Dur] 20 meq PO DAILY 01/29/21 07/09/21 Brimonidine 0.2% Ophth Drops 75 drops EACHEYE DAILY 07/09/21 07/09/21 [Alphagan P 0.2% Ophth Drops] - Allergies Allergies/Adverse Reactions: Allergies Allergy/AdvReac Type Severity Reaction Status Date / Time No Known Drug Allergies Allergy Verified 07/09/21 08:28 Review of Systems - Constitutional Constitutional: reports: Fever. denies: Weakness - Eyes Eyes: denies: Pain - Ears, Nose & Throat Ears, Nose & Throat: denies: Ear pain, Nosebleeds - Cardiovascular Cariovascular: reports: Exertional dyspnea, Decr. exercise tolerance. denies: Irregular heart rate, Palpitations, Chest pain, Syncope - Respiratory Respiratory: reports: SOB at rest, SOB with exertion. denies: Cough, Sputum production - Gastrointestinal Gastrointestinal: denies: Abdominal pain, Diarrhea, Nausea, Vomiting - Genitourinary Genitourinary: denies: Dysuria - Musculoskeletal Musculoskeletal: denies: Muscle pain - Neurological Neurological: denies: Focal weakness, Headache, Dizziness, Numbness, Abnormal gait, Seizures, Incoordination, Slurred speech - Psychiatric Psychiatric: denies: Depression Exam - Vital Signs Vital Signs: Vital Signs x48h Temp Pulse Resp BP Pulse Ox 07/09/21 10:48 62 27 H 117/55 L 91 L 07/09/21 09:38 37.7 C 66 27 H 124/58 L 91 L 07/09/21 08:48 64 31 H 125/52 L 94 07/09/21 08:28 38.9 C H 69 26 H 130/56 L 87 L - Physical Exam General Appearance: positive: No acute distress, Alert. negative: Lethargic Eyes Bilateral: positive: Normal inspection, PERRL, No lid inflammation ENT: positive: ENT inspection nml, No signs of dehydration. negative: Purulent nasal drainage Neck: positive: Nml inspection, Trachea midline. negative: Thyromegaly, Tr acheal deviation Respiratory: positive: Chest non-tender, No respiratory distress, Rales. negative: Wheezes Cardiovascular: positive: Regular rate & rhythm, No murmur. negative: Tachycardia, Bradycardia, Systolic murmur, Diastolic murmur Peripheral Pulses: positive: 2+ Abdomen: positive: Non-tender, Nml bowel sounds, No distention. negative: Tenderness Back: positive: Nml inspection Skin: positive: Color nml, Warm, Dry. negative: Cyanosis Extremities: positive: Non-tender, Nml appearance. negative: Calf tenderness Neurologic/Psychiatric: positive: Oriented x3, Sensation nml, Mood/affect nml. negative: Weakness, Sensory loss, Facial droop, Slurred/abnml speech, Depressed mood/affect Conclusion/Plan - Problem List (1) Respiratory failure with hypoxia Conclusion/Plan: Patient has fever, patient had 87% oxygen saturation on room air with tachypnea. COVID-19 test today is positive, chest x-ray show bilaterally COVID-19 pneumonia. We will order supplement oxygen for patient as needed, we will treat for COVID-19 with remdesivir, decatron, and Eliquis (2) Pneumonia due to COVID-19 virus Conclusion/Plan: pt is Covid 19 positive and hypoxia. We will order supplement oxygen for patient as needed, we will treat for COVID-19 with remdesivir, decatron, and Eliquis (3) HTN (hypertension) Conclusion/Plan: stable, resume his home meds Norvasc after confirmed (4) Atrial fibrillation Conclusion/Plan: Patient has a history of atrial fibrillation, patient had ablation about 2 weeks ago. Now patient heart rate is controlled. Patient take Tikosyn and Xarelto in the home. we order EKG, resume home meds, continue Tele monitor. Hospital does not have Xarelto now, instead we will order Eliquis for patient. Patient also has Eliquis for his COVID-19 treatment (5) Benign prostatic hyperplasia Conclusion/Plan: We will resume patient home Flomax, Monitor urine output. Qualifiers: Lower urinary tract symptom presence: symptoms present (6) Glaucoma Conclusion/Plan: Stable, resume home medications - Lab Results Fish Bones: 07/09/21 08:40 07/09/21 08:40 Core Measures - Anticipated LOS I expect patient to be DC'd or transferred within 96 hours.: Yes - DVT/VTE - Prophylaxis VTE/DVT Device ordered at admit?: Yes VTE/DVT Prophylaxis med ordered at admit?: Yes
[2021-07-09] MEDS ORDERED: REMDESIVIR 100MG VIAL 200 MG in SODIUM CHLORIDE 0.9% 250 ML IV ONE ×2 (13:00→14:00)
--- NOTE | 2021-07-09 13:19 | PHARMACY PROGRESS NOTE ---
- Best Possible Medication History Admit Date and Time: 07/09/21 1119 Processed by: Nursing Medication History completed: Yes Patient Interview: Completed (MED REC COMPLETED BY NURSING) As the person ultimately responsible for medication therapy, providers are able to order a medication from an existing home medication list in [facility] via the "Reconcile Routine" prior to Confirmation of that medication by business support liaison. Such practice is discouraged except when the physician, in their clinical judgment, deems that a medical need exists for a medication without regard to previous use.
[2021-07-09] MEDS: LATANOPROST 0.005% OPHTH DROPS EACHEYE SCH (14:31)
[2021-07-09] MEDS: BRIMONIDINE 0.2% OPHTH DROPS 5 ML EACHEYE SCH (14:32)
[2021-07-09] MEDS: dexAMETHasone 4 MG TABLET PO SCH (14:38)
[2021-07-09] MEDS: SODIUM CHLORIDE FLUSH 0.9% 10 ML SYRINGE IVP SCH ×2 (16:00→20:34)
[2021-07-09] MEDS: DOFETILIDE 500 MCG PO SCH (20:33)
[2021-07-09] MEDS: APIXABAN 5 MG TABLET PO SCH (20:34)
[2021-07-10 05:17] LABS: BASOPHILS % (AUTO) 0.3 %; HCT - HEMATOCRIT 37.6 % (42.0-52.0); LYMPHOCYTES % (AUTO) 14.1 %; MEAN CORPUSCULAR HEMOGLOBIN 31.7 pg (27.0-31.0); MEAN CORPUSCULAR HGB CONC 34.6 g/dL (32.0-36.0); MEAN CORPUSCULAR VOLUME 91.7 fL (80.0-94.0); MEAN PLATELET VOLUME 9.8 fL (7.4-11.4); MONOCYTES % (AUTO) 3.8 %; NEUTROPHILS % (AUTO) 81.5 %; PLT - PLATELET COUNT 170 10^3/uL (130-450); RED CELL DISTRIBUTION WIDTH 11.9 % (12.0-15.0); WHITE BLOOD COUNT 3.1 x10^3/uL (4.8-10.8)
[2021-07-10 05:19] LABS: CALCIUM 8.2 mg/dL (8.5-10.3); CREATININE 0.7 mg/dL (0.6-1.2); POTASSIUM 3.9 mmol/L (3.5-5.0)
[2021-07-10 05:22] LABS: ABNORMAL LYMPHS % (MANUAL) 0 %
[2021-07-10 05:48] LABS: BAND NEUTROPHILS % (MANUAL) 4 %; DIFFERENTIAL COMMENT MANUAL DIFFERENTIAL; LYMPHOCYTES # (MANUAL) 0.4 10^3/uL (1.5-3.5); LYMPHOCYTES % (MANUAL) 14 %; MONOCYTES # (MANUAL) 0.1 10^3/uL (0.0-1.0); NEUTROPHILS # (MANUAL) 2.6 10^3/uL (1.5-6.6); PLATELET ESTIMATE, MANUAL NORMAL (130-450,000) (NORMAL); RBC MORPHOLOGY (MULTIPLE) NORMAL APPEARANCE (NORMAL)
[2021-07-10] MEDS: APIXABAN 5 MG TABLET PO SCH ×2 (08:44→21:01)
[2021-07-10] MEDS: dexAMETHasone 4 MG TABLET PO SCH (08:45)
[2021-07-10] MEDS: DOFETILIDE 500 MCG PO SCH ×2 (08:46→21:01)
[2021-07-10] MEDS: TAMSULOSIN 0.4 MG CAPSULE PO SCH (08:46)
[2021-07-10] MEDS: BRIMONIDINE 0.2% OPHTH DROPS 5 ML EACHEYE SCH ×2 (08:50→21:00)
[2021-07-10] MEDS: SODIUM CHLORIDE FLUSH 0.9% 10 ML SYRINGE IVP SCH ×2 (08:51→16:07)
[2021-07-10] MEDS: LATANOPROST 0.005% OPHTH DROPS EACHEYE SCH (08:51)
[2021-07-10] MEDS: REMDESIVIR 100MG VIAL 100 MG in SODIUM CHLORIDE 0.9% 100ML 100 ML IV SCH (08:55)
--- NOTE | 2021-07-10 10:40 | PROVIDER PROGRESS NOTE ---
Assessment/Plan - Problem List (1) Respiratory failure with hypoxia Assessment/Plan: 07/10 pt need more oxygen supplement, pt has 94% on 6 LPM of O2 but pt has no respiratory distress. continue supplement oxygen for patient as needed, we will treat for COVID-19 with remdesivir, decatron, and Eliquis. continue vital and tele monitor. Patient has fever, patient had 87% oxygen saturation on room air with tachypnea. COVID-19 test today is positive, chest x-ray show bilaterally COVID-19 pneumonia. We will order supplement oxygen for patient as needed, we will treat for COVID-19 with remdesivir, decatron, and Eliquis (2) Pneumonia due to COVID-19 virus Conclusion/Plan: pt is Covid 19 positive and hypoxia. We will order supplement oxygen for patient as needed, we will treat for COVID-19 with remdesivir, decatron, and Eliquis (3) HTN (hypertension) Conclusion/Plan: stable, resume his home meds Norvasc after confirmed (4) Atrial fibrillation Conclusion/Plan: 07/10 stable, continue home meds, continue tele monitor Patient has a history of atrial fibrillation, patient had ablation about 2 weeks ago. Now patient heart rate is controlled. Patient take Tikosyn and Xarelto in the home. we order EKG, resume home meds, continue Tele monitor. Hospital does not have Xarelto now, instead we will order Eliquis for patient. Patient also has Eliquis for his COVID-19 treatment (5) Benign prostatic hyperplasia Conclusion/Plan: We will resume patient home Flomax, Monitor urine output. Qualifiers: Lower urinary tract symptom presence: symptoms present (6) Glaucoma Conclusion/Plan: Stable, resume home medications (5) Benign prostatic hyperplasia Qualifiers: Lower urinary tract symptom presence: symptoms present - Current Meds Current Meds: Current Medications Generic Name Dose Route Start Last Admin Trade Name Kirkq PRN Reason Stop Dose Admin Apixaban 5 mg 07/09/21 21:00 07/10/21 08:44 Apixaban 5 Mg Tablet PO 5 mg BID [facility] Administration Brimonidine Tartrate 1 drops 07/09/21 12:00 07/10/21 08:50 Brimonidine 0.2% Ophth Drops 5 Ml EACHEYE 1 drops DAILY [facility] Administration Dexamethasone 6 mg 07/09/21 14:07 07/10/21 08:45 Dexamethasone 4 Mg Tablet PO 6 mg DAILY [facility] Administration Remdesivir 100 mg/ Sodium 100 mls @ 200 mls/hr 07/10/21 09:00 07/10/21 09:30 Chloride IV 07/13/21 09:29 Infused DAILY [facility] Infusion Latanoprost 1 drops 07/09/21 12:00 07/10/21 08:51 Latanoprost 0.005% Ophth Drops EACHEYE Not Given DAILY [facility] Pt Own Med ( 500 mcg 07/09/21 21:00 07/10/21 08:46 Dofetilide [Tikosyn] PO 500 mcg 500 Mcg Capsule) BID [facility] Administration Sodium Chloride 10 ml 07/09/21 17:00 07/10/21 08:51 Sodium Chloride Flush 0.9% 10 Ml Syringe IVP 10 ml 0100,0900,1700 [facility] Administration Tamsulosin HCl 0.4 mg 07/10/21 09:00 07/10/21 08:46 Tamsulosin 0.4 Mg Capsule PO 0.4 mg DAILY [facility] Administration - Lab Result Fish Bone Diagrams: 07/10/21 04:21 07/10/21 04:21 - Additional Planning My Orders: My Active Orders 07/09/21 Lunch Regular Diet [DIET] 07/09/21 11:19 Activity Orders [RC] Q2HR IO [RC] IOSHIFT Initiate Bowel Care Protocol [RC] .protocol Initiate Line Care Protocol [RC] QSHIFT Initiate Personal Care Protoco [RC] .protocol Telemetry- [RC] Q4HR Vital Signs [RC] 0800,1600,0000 Acetaminophen [Tylenol] 650 mg PO Q4HR PRN Ondansetron Inj [Zofran Inj] 4 mg IVP Q6HR PRN Sodium Chloride Flush 0.9% [Normal Saline Flush 0.9%] 10 ml IVP PRN PRN Code Status [OTHERS] Routine Condition of Patient [OTHERS] Routine DVT Prophylaxis [OTHERS] Routine 07/09/21 11:23 IV Insert [RC] .ONCE SCDs [RC] QSHIFT 07/09/21 12:00 Brimonidine 0.2% Ophth Drops [Alphagan P 0.2% Ophth Drops] 1 drops EACHEYE DAILY Latanoprost 0.005% Ophth Drops [Xalatan Ophth Drops] 1 drops EACHEYE DAILY 07/09/21 14:07 dexAMETHasone [Decadron] 6 mg PO DAILY 07/09/21 17:00 Sodium Chloride Flush 0.9% [Normal Saline Flush 0.9%] 10 ml IVP 0100,0900,1700 07/09/21 18:53 RT [Oxygen Therapy] [RC] .PRN 07/09/21 21:00 Apixaban [Eliquis] 5 mg PO BID Dofetilide [Tikosyn] 500 mcg PO BID 07/09/21 23:51 RT [Home CPAP/BiPAP] [RC] .ONCE 07/10/21 09:00 Remdesivir 100Mg Vial [Veklury] 100 mg Sodium Chloride 0.9% 100Ml [Normal Saline 0.9% 100Ml] 100 ml IV DAILY Tamsulosin [Flomax] 0.4 mg PO DAILY 07/11/21 05:00 BMP - BASIC METABOLIC PANEL [CHEM] DAILYLAB CBC - COMP BLD CT W/AUTO DIFF [HEME] DAILYLAB 07/12/21 05:00 BMP - BASIC METABOLIC PANEL [CHEM] DAILYLAB CBC - COMP BLD CT W/AUTO DIFF [HEME] DAILYLAB 07/13/21 05:00 BMP - BASIC METABOLIC PANEL [CHEM] DAILYLAB CBC - COMP BLD CT W/AUTO DIFF [HEME] DAILYLAB 07/14/21 05:00 BMP - BASIC METABOLIC PANEL [CHEM] DAILYLAB CBC - COMP BLD CT W/AUTO DIFF [HEME] DAILYLAB 07/15/21 05:00 BMP - BASIC METABOLIC PANEL [CHEM] DAILYLAB CBC - COMP BLD CT W/AUTO DIFF [HEME] DAILYLAB 07/16/21 05:00 BMP - BASIC METABOLIC PANEL [CHEM] DAILYLAB CBC - COMP BLD CT W/AUTO DIFF [HEME] DAILYLAB 07/17/21 05:00 BMP - BASIC METABOLIC PANEL [CHEM] DAILYLAB CBC - COMP BLD CT W/AUTO DIFF [HEME] DAILYLAB 07/18/21 05:00 BMP - BASIC METABOLIC PANEL [CHEM] DAILYLAB CBC - COMP BLD CT W/AUTO DIFF [HEME] DAILYLAB 07/19/21 05:00 BMP - BASIC METABOLIC PANEL [CHEM] DAILYLAB CBC - COMP BLD CT W/AUTO DIFF [HEME] DAILYLAB Subjective - Subjective Patient Reports: Resting Comfortably Objective Vital Signs: Vital Signs - 24 hr 07/09/21 07/09/21 07/09/21 10:48 12:44 13:00 Temperature 37.6 C Heart Rate 62 64 Heart Rate [ 64 Monitoring electrodes] Respiratory 27 H 23 20 Rate Blood Pressure 117/55 L Blood Pressure 127/62 [Left Brachial artery] Blood Pressure [Right Brachial artery] O2 Saturation 91 L 95 95 07/09/21 07/09/21 07/09/21 15:59 20:22 23:31 Temperature 98.2 C H 37.0 C 37 C Heart Rate Heart Rate [ 60 59 L 59 L Monitoring electrodes] Respiratory 26 H 23 19 Rate Blood Pressure Blood Pressure 121/60 108/42 L [Left Brachial artery] Blood Pressure 121/63 [Right Brachial artery] O2 Saturation 94 91 L 95 07/10/21 07/10/21 07/10/21 06:37 07:30 08:00 Temperature 36.7 C 36.6 C Heart Rate Heart Rate [ 58 L 62 Monitoring electrodes] Respiratory 17 15 26 H Rate Blood Pressure Blood Pressure [Left Brachial artery] Blood Pressure 122/62 123/64 [Right Brachial artery] O2 Saturation 96 93 94 Oxygen O2 Source NC w/humidity Oxygen Flow Rate 4 I&O (Last 24 Hrs): Intake and Output Totals x24h 07/08/21 07/09/21 07/10/21 23:59 23:59 23:59 Intake Total 730 940 Output Total 725 950 Balance 5 -10 General: Alert, Oriented x3, Cooperative, No acute distress HEENT: Atraumatic Neck: Supple Lymphatic: no adenopathy Neuro: Alert, Non Focal, Oriented Times 3 Cardiovascular: Regular rate, Normal S1, Normal S2 Respiratory: Chest non-tender, No respiratory distress Abdomen: Normal bowel sounds, Soft, No tenderness Extremities: Normal pulses - Results Results: Laboratory Results WBC 3.1 x10^3/uL (4.8-10.8) L 07/10/21 04:21 RBC 4.10 10^6/uL (4.70-6.10) L 07/10/21 04:21 Hgb 13.0 g/dL (14.0-18.0) L 07/10/21 04:21 Hct 37.6 % (42.0-52.0) L 07/10/21 04:21 MCV 91.7 fL (80.0-94.0) 07/10/21 04:21 MCH 31.7 pg (27.0-31.0) H 07/10/21 04:21 MCHC 34.6 g/dL (32.0-36.0) 07/10/21 04:21 RDW 11.9 % (12.0-15.0) L 07/10/21 04:21 Plt Count 170 10^3/uL (130-450) 07/10/21 04:21 MPV 9.8 fL (7.4-11.4) 07/10/21 04:21 Neut # (Auto) Not Reportable 07/10/21 04:21 Lymph # (Auto) Not Reportable 07/10/21 04:21 [place] # (Auto) Not Reportable 07/10/21 04:21 Eos # (Auto) Not Reportable 07/10/21 04:21 Baso # (Auto) Not Reportable 07/10/21 04:21 Absolute Nucleated RBC Not Reportable 07/10/21 04:21 Total Counted 100 07/10/21 04:21 Band Neuts % (Manual) 4 % (0-10) 07/10/21 04:21 Abnorm Lymph % (Manual) 0 % 07/10/21 04:21 Nucleated RBC % Not Reportable 07/10/21 04:21 Neutrophils # (Manual) 2.6 10^3/uL (1.5-6.6) 07/10/21 04:21 Lymphocytes # (Manual) 0.4 10^3/uL (1.5-3.5) L 07/10/21 04:21 Monocytes # (Manual) 0.1 10^3/uL (0.0-1.0) 07/10/21 04:21 Eosinophils # (Manual) 0.0 10^3/uL (0-0.7) 07/10/21 04:21 Basophils # (Manual) 0.0 10^3/uL (0-0.1) 07/10/21 04:21 Differential Comment MANUAL DIFFERENTIAL 07/10/21 04:21 Platelet Estimate NORMAL (130-450,000) (NORMAL) 07/10/21 04:21 RBC Morph Micro Appear NORMAL APPEARANCE (NORMAL) 07/10/21 04:21 Sodium 138 mmol/L (135-145) 07/10/21 04:21 Potassium 3.9 mmol/L (3.5-5.0) 07/10/21 04:21 Chloride 104 mmol/L (101-111) 07/10/21 04:21 Carbon Dioxide 21 mmol/L (21-32) 07/10/21 04:21 Anion Gap 13.0 (6-13) 07/10/21 04:21 BUN 20 mg/dL (6-20) 07/10/21 04:21 Creatinine 0.7 mg/dL (0.6-1.2) 07/10/21 04:21 Estimated GFR (MDRD) 110 (>89) 07/10/21 04:21 Glucose 165 mg/dL (70-100) H 07/10/21 04:21 Calcium 8.2 mg/dL (8.5-10.3) L 07/10/21 04:21 Total Bilirubin 1.6 mg/dL (0.2-1.0) H 07/09/21 08:40 AST 32 IU/L (10-42) 07/09/21 08:40 ALT 35 IU/L (10-60) 07/09/21 08:40 Alkaline Phosphatase 58 IU/L (42-121) 07/09/21 08:40 Total Protein 6.7 g/dL (6.7-8.2) 07/09/21 08:40 Albumin 3.7 g/dL (3.2-5.5) 07/09/21 08:40 Globulin 3.0 g/dL (2.1-4.2) 07/09/21 08:40 Albumin/Globulin Ratio 1.2 (1.0-2.2) 07/09/21 08:40 Lipase 47 U/L (22-51) 07/09/21 08:40 Nasal Adenovirus (PCR) NOT DETECTED 07/09/21 08:45 Nasal B. parapertussis DNA (PCR) NOT DETECTED 07/09/21 08:45 Nasal Coronavir 229E PCR NOT DETECTED 07/09/21 08:45 Nasal Coronavir HKU1 PCR NOT DETECTED 07/09/21 08:45 Nasal Coronavir NL63 PCR NOT DETECTED 07/09/21 08:45 Nasal Coronavir OC43 PCR NOT DETECTED 07/09/21 08:45 Nasal Enterovir/Rhinovir PCR NOT DETECTED 07/09/21 08:45 Nasal Influenza B PCR NOT DETECTED 07/09/21 08:45 Nasal Influenza A PCR NOT DETECTED 07/09/21 08:45 Nasal Parainfluen 1 PCR NOT DETECTED 07/09/21 08:45 Nasal Parainfluen 2 PCR NOT DETECTED 07/09/21 08:45 Nasal Parainfluen 3 PCR NOT DETECTED 07/09/21 08:45 Nasal Parainfluen 4 PCR NOT DETECTED 07/09/21 08:45 Nasal RSV (PCR) NOT DETECTED 07/09/21 08:45 Nasal Screen MRSA (PCR) NEGATIVE (NEGATIVE) 07/09/21 12:56 Nasal B.pertussis DNA PCR NOT DETECTED 07/09/21 08:45 Nasal C.pneumoniae (PCR) NOT DETECTED 07/09/21 08:45 Kody Human Metapneumo PCR NOT DETECTED 07/09/21 08:45 Nasal M.pneumoniae (PCR) NOT DETECTED 07/09/21 08:45 Nasal SARS-CoV-2 (PCR) DETECTED A 07/09/21 08:45 - Procedures Procedures: Procedures HEART COUNTERSHOCK NEC (03/06/14) OTH & OPEN REPAIR DIRECT INGUINAL HERNIA W GRAFT OR PROSTH (08/03/14) SPERMATIC CORD LIGATION (08/03/14) ABX Reporting Has patient been on IV antibiotics over the past 48 hours?: No Current Medications - Current Medications Current Medications: Active Medications Acetaminophen (Acetaminophen 325 Mg Tablet) 650 mg PO Q4HR PRN PRN Reason: Pain 1 to 4 Apixaban (Apixaban 5 Mg Tablet) 5 mg PO BID [facility] Last Admin: 07/10/21 08:44 Dose: 5 mg Documented by: Brimonidine Tartrate (Brimonidine 0.2% Ophth Drops 5 Ml) 1 drops EACHEYE DAILY [facility] Last Admin: 07/10/21 08:50 Dose: 1 drops Documented by: Dexamethasone (Dexamethasone 4 Mg Tablet) 6 mg PO DAILY [facility] Last Admin: 07/10/21 08:45 Dose: 6 mg Documented by: Remdesivir 100 mg/ Sodium (Chloride) 100 mls @ 200 mls/hr IV DAILY [facility] Stop: 07/13/21 09:29 Last Infusion: 07/10/21 09:30 Dose: Infused Documented by: Latanoprost (Latanoprost 0.005% Ophth Drops) 1 drops EACHEYE DAILY [facility] Last Admin: 07/10/21 08:51 Dose: Not Given Documented by: Pt Own Med ( Dofetilide [Tikosyn] 500 Mcg Capsule) 500 mcg PO BID [facility] Last Admin: 07/10/21 08:46 Dose: 500 mcg Documented by: Ondansetron HCl (Ondansetron 4 Mg/2 Ml Vial) 4 mg IVP Q6HR PRN PRN Reason: Nausea / Vomiting Sodium Chloride (Sodium Chloride Flush 0.9% 10 Ml Syringe) 10 ml IVP PRN PRN PRN Reason: NEEDED PER PROVIDER ORDERS Sodium Chloride (Sodium Chloride Flush 0.9% 10 Ml Syringe) 10 ml IVP 0100,0900,1700 [facility] Last Admin: 07/10/21 08:51 Dose: 10 ml Documented by: Tamsulosin HCl (Tamsulosin 0.4 Mg Capsule) 0.4 mg PO DAILY [facility] Last Admin: 07/10/21 08:46 Dose: 0.4 mg Documented by: Latanoprost 0.005% Ophth Drops [Xalatan Ophth Drops] 1 drop EACHEYE DAILY 03/05/14 Tamsulosin [Flomax] 0.4 mg PO DAILY 01/14/16 Dofetilide [Tikosyn] 500 mcg PO BID 11/15/20 amLODIPine [Norvasc] 5 mg PO BID 11/15/20 Potassium Chloride [K-Dur] 20 meq PO DAILY 01/29/21 Brimonidine 0.2% Ophth Drops [Alphagan P 0.2% Ophth Drops] 75 drops EACHEYE DAILY 07/09/21
[2021-07-11 05:19] LABS: HGB - HEMOGLOBIN 13.4 g/dL (14.0-18.0); LYMPHOCYTES # (AUTO) 0.7 10^3/uL (1.5-3.5); LYMPHOCYTES % (AUTO) 9.7 %; MEAN CORPUSCULAR HEMOGLOBIN 31.8 pg (27.0-31.0); MEAN CORPUSCULAR HGB CONC 34.4 g/dL (32.0-36.0); MEAN CORPUSCULAR VOLUME 92.6 fL (80.0-94.0); MEAN PLATELET VOLUME 9.6 fL (7.4-11.4); MONOCYTES # (AUTO) 0.4 10^3/uL (0.0-1.0); MONOCYTES % (AUTO) 5.6 %; NEUTROPHILS # (AUTO) 5.9 10^3/uL (1.5-6.6); NEUTROPHILS % (AUTO) 84.1 %; PLT - PLATELET COUNT 235 10^3/uL (130-450); RED BLOOD COUNT 4.21 10^6/uL (4.70-6.10); RED CELL DISTRIBUTION WIDTH 11.9 % (12.0-15.0)
[2021-07-11 05:33] LABS: CALCIUM 8.3 mg/dL (8.5-10.3); CREATININE 0.7 mg/dL (0.6-1.2); POTASSIUM 3.9 mmol/L (3.5-5.0)
[2021-07-11] MEDS: BRIMONIDINE 0.2% OPHTH DROPS 5 ML EACHEYE SCH ×4 (06:26→20:58)
[2021-07-11] MEDS: SODIUM CHLORIDE FLUSH 0.9% 10 ML SYRINGE IVP SCH ×4 (06:33→20:57)
[2021-07-11] MEDS: APIXABAN 5 MG TABLET PO SCH ×2 (08:00→20:57)
[2021-07-11] MEDS: TAMSULOSIN 0.4 MG CAPSULE PO SCH (08:01)
[2021-07-11] MEDS: dexAMETHasone 4 MG TABLET PO SCH (08:01)
[2021-07-11] MEDS: DOFETILIDE 500 MCG PO SCH ×2 (08:02→20:57)
[2021-07-11] MEDS: SENNA 8.6 MG TABLET PO SCH (09:15)
[2021-07-11] MEDS: REMDESIVIR 100MG VIAL 100 MG in SODIUM CHLORIDE 0.9% 100ML 100 ML IV SCH (09:15)
--- NOTE | 2021-07-11 11:02 | PROVIDER PROGRESS NOTE ---
Assessment/Plan - Problem List (1) Respiratory failure with hypoxia Assessment/Plan: 07/11 slight improved. pt has 95% sat on 3 liter of O2, continue remdesivir, decatron, and Eliquis. 07/10 pt need more oxygen supplement, pt has 94% on 6 LPM of O2 but pt has no respiratory distress. continue supplement oxygen for patient as needed, we will treat for COVID-19 with remdesivir, decatron, and Eliquis. continue vital and tele monitor. Patient has fever, patient had 87% oxygen saturation on room air with tachypnea. COVID-19 test today is positive, chest x-ray show bilaterally COVID-19 pneumonia. We will order supplement oxygen for patient as needed, we will treat for COVID-19 with remdesivir, decatron, and Eliquis (2) Pneumonia due to COVID-19 virus Conclusion/Plan: pt is Covid 19 positive and hypoxia. We will order supplement oxygen for patient as needed, we will treat for COVID-19 with remdesivir, decatron, and Eliquis (3) HTN (hypertension) Conclusion/Plan: stable, resume his home meds Norvasc after confirmed (4) Atrial fibrillation Conclusion/Plan: 07/11 pt show bradycardia but pt is totally asymptomatic. he denies dizziness, lightheaded, chest pain. he feel comfortable without distress. Patient take Tikosyn by his wood boatbuilder apprentice prescribed. pt may followup with wood boatbuilder apprentice after d/c to management of his afib 07/10 stable, continue home meds, continue tele monitor Patient has a history of atrial fibrillation, patient had ablation about 2 weeks ago. Now patient heart rate is controlled. Patient take Tikosyn and Xarelto in the home. we order EKG, resume home meds, continue Tele monitor. Hospital does not have Xarelto now, instead we will order Eliquis for patient. Patient also has Eliquis for his COVID-19 treatment (5) Benign prostatic hyperplasia Conclusion/Plan: We will resume patient home Flomax, Monitor urine output. Qualifiers: Lower urinary tract symptom presence: symptoms present (6) Glaucoma Conclusion/Plan: Stable, resume home medications (5) Benign prostatic hyperplasia Qualifiers: Lower urinary tract symptom presence: symptoms present - Current Meds Current Meds: Current Medications Generic Name Dose Route Start Last Admin Trade Name Freq PRN Reason Stop Dose Admin Apixaban 5 mg 07/09/21 21:00 07/11/21 08:00 Apixaban 5 Mg Tablet PO 5 mg BID [facility] Administration Brimonidine Tartrate 1 drops 07/10/21 22:00 07/11/21 09:14 Brimonidine 0.2% Ophth Drops 5 Ml EACHEYE 1 drops BID [facility] Administration Dexamethasone 6 mg 07/09/21 14:07 07/11/21 08:01 Dexamethasone 4 Mg Tablet PO 6 mg DAILY [facility] Administration Remdesivir 100 mg/ Sodium 100 mls @ 200 mls/hr 07/10/21 09:00 07/11/21 09:50 Chloride IV 07/13/21 09:29 Infused DAILY [facility] Infusion Pt Own Med ( 500 mcg 07/09/21 21:00 07/11/21 08:02 Dofetilide [Tikosyn] PO 500 mcg 500 Mcg Capsule) BID [facility] Administration Senna 8.6 - 17.2 mg 07/11/21 09:00 07/11/21 09:15 Senna 8.6 Mg Tablet PO 8.6 mg DAILY [facility] Administration Sodium Chloride 10 ml 07/09/21 17:00 07/11/21 09:13 Sodium Chloride Flush 0.9% 10 Ml Syringe IVP 10 ml 0100,0900,1700 [facility] Administration Tamsulosin HCl 0.4 mg 07/10/21 09:00 07/11/21 08:01 Tamsulosin 0.4 Mg Capsule PO 0.4 mg DAILY [facility] Administration - Lab Result Fish Bone Diagrams: 07/11/21 04:12 07/11/21 04:12 - Additional Planning My Orders: My Active Orders 07/11/21 09:00 Senna [Senokot] 8.6 - 17.2 mg PO DAILY 07/12/21 05:00 BMP - BASIC METABOLIC PANEL [CHEM] DAILYLAB CBC - COMP BLD CT W/AUTO DIFF [HEME] DAILYLAB 07/13/21 05:00 BMP - BASIC METABOLIC PANEL [CHEM] DAILYLAB CBC - COMP BLD CT W/AUTO DIFF [HEME] DAILYLAB 07/14/21 05:00 BMP - BASIC METABOLIC PANEL [CHEM] DAILYLAB CBC - COMP BLD CT W/AUTO DIFF [HEME] DAILYLAB 07/15/21 05:00 BMP - BASIC METABOLIC PANEL [CHEM] DAILYLAB CBC - COMP BLD CT W/AUTO DIFF [HEME] DAILYLAB 07/16/21 05:00 BMP - BASIC METABOLIC PANEL [CHEM] DAILYLAB CBC - COMP BLD CT W/AUTO DIFF [HEME] DAILYLAB 07/17/21 05:00 BMP - BASIC METABOLIC PANEL [CHEM] DAILYLAB CBC - COMP BLD CT W/AUTO DIFF [HEME] DAILYLAB 07/18/21 05:00 BMP - BASIC METABOLIC PANEL [CHEM] DAILYLAB CBC - COMP BLD CT W/AUTO DIFF [HEME] DAILYLAB 07/19/21 05:00 BMP - BASIC METABOLIC PANEL [CHEM] DAILYLAB CBC - COMP BLD CT W/AUTO DIFF [HEME] DAILYLAB Subjective - Subjective Patient Reports: Resting Comfortably Objective Vital Signs: Vital Signs - 24 hr 07/10/21 07/10/21 07/10/21 14:25 16:00 16:35 Temperature 37.3 C Heart Rate [ 50 L 52 L 52 L Monitoring electrodes] Respiratory 19 25 H 28 H Rate Blood Pressure 118/64 [Right Brachial artery] O2 Saturation 95 96 95 07/10/21 07/11/21 07/11/21 17:45 00:00 07:58 Temperature 36.7 C 36.7 C Heart Rate [ 58 L 49 L Monitoring electrodes] Respiratory 20 22 19 Rate Blood Pressure 114/62 131/63 H [Right Brachial artery] O2 Saturation 96 94 95 Oxygen O2 Source NC w/humidity Oxygen Flow Rate 4 I&O (Last 24 Hrs): Intake and Output Totals x24h 07/09/21 07/10/21 07/11/21 23:59 23:59 23:59 Intake Total 730 1750 1200 Output Total 725 1200 925 Balance 5 550 275 General: Alert, Oriented x3, Cooperative, No acute distress HEENT: Atraumatic Neck: Supple Lymphatic: no adenopathy Neuro: Alert, Non Focal, Oriented Times 3 Cardiovascular: Regular rate, Normal S1, Normal S2 Respiratory: Chest non-tender, No respiratory distress Abdomen: Normal bowel sounds, Soft Extremities: Normal pulses - Results Results: Laboratory Results WBC 7.0 x10^3/uL (4.8-10.8) 07/11/21 04:12 RBC 4.21 10^6/uL (4.70-6.10) L 07/11/21 04:12 Hgb 13.4 g/dL (14.0-18.0) L 07/11/21 04:12 Hct 39.0 % (42.0-52.0) L 07/11/21 04:12 MCV 92.6 fL (80.0-94.0) 07/11/21 04:12 MCH 31.8 pg (27.0-31.0) H 07/11/21 04:12 MCHC 34.4 g/dL (32.0-36.0) 07/11/21 04:12 RDW 11.9 % (12.0-15.0) L 07/11/21 04:12 Plt Count 235 10^3/uL (130-450) 07/11/21 04:12 MPV 9.6 fL (7.4-11.4) 07/11/21 04:12 Neut # (Auto) 5.9 10^3/uL (1.5-6.6) 07/11/21 04:12 Lymph # (Auto) 0.7 10^3/uL (1.5-3.5) L 07/11/21 04:12 [place] # (Auto) 0.4 10^3/uL (0.0-1.0) 07/11/21 04:12 Eos # (Auto) 0.0 10^3/uL (0.0-0.7) 07/11/21 04:12 Baso # (Auto) 0.0 10^3/uL (0.0-0.1) 07/11/21 04:12 Absolute Nucleated RBC 0.00 x10^3/uL 07/11/21 04:12 Total Counted 100 07/10/21 04:21 Band Neuts % (Manual) 4 % (0-10) 07/10/21 04:21 Abnorm Lymph % (Manual) 0 % 07/10/21 04:21 Nucleated RBC % 0.0 /100WBC 07/11/21 04:12 Neutrophils # (Manual) 2.6 10^3/uL (1.5-6.6) 07/10/21 04:21 Lymphocytes # (Manual) 0.4 10^3/uL (1.5-3.5) L 07/10/21 04:21 Monocytes # (Manual) 0.1 10^3/uL (0.0-1.0) 07/10/21 04:21 Eosinophils # (Manual) 0.0 10^3/uL (0-0.7) 07/10/21 04:21 Basophils # (Manual) 0.0 10^3/uL (0-0.1) 07/10/21 04:21 Differential Comment MANUAL DIFFERENTIAL 07/10/21 04:21 Platelet Estimate NORMAL (130-450,000) (NORMAL) 07/10/21 04:21 RBC Morph Micro Appear NORMAL APPEARANCE (NORMAL) 07/10/21 04:21 Sodium 138 mmol/L (135-145) 07/11/21 04:12 Potassium 3.9 mmol/L (3.5-5.0) 07/11/21 04:12 Chloride 103 mmol/L (101-111) 07/11/21 04:12 Carbon Dioxide 22 mmol/L (21-32) 07/11/21 04:12 Anion Gap 13.0 (6-13) 07/11/21 04:12 BUN 24 mg/dL (6-20) H 07/11/21 04:12 Creatinine 0.7 mg/dL (0.6-1.2) 07/11/21 04:12 Estimated GFR (MDRD) 110 (>89) 07/11/21 04:12 Glucose 149 mg/dL (70-100) H 07/11/21 04:12 Calcium 8.3 mg/dL (8.5-10.3) L 07/11/21 04:12 Total Bilirubin 1.6 mg/dL (0.2-1.0) H 07/09/21 08:40 AST 32 IU/L (10-42) 07/09/21 08:40 ALT 35 IU/L (10-60) 07/09/21 08:40 Alkaline Phosphatase 58 IU/L (42-121) 07/09/21 08:40 Total Protein 6.7 g/dL (6.7-8.2) 07/09/21 08:40 Albumin 3.7 g/dL (3.2-5.5) 07/09/21 08:40 Globulin 3.0 g/dL (2.1-4.2) 07/09/21 08:40 Albumin/Globulin Ratio 1.2 (1.0-2.2) 07/09/21 08:40 Lipase 47 U/L (22-51) 07/09/21 08:40 Nasal Adenovirus (PCR) NOT DETECTED 07/09/21 08:45 Nasal B. parapertussis DNA (PCR) NOT DETECTED 07/09/21 08:45 Nasal Coronavir 229E PCR NOT DETECTED 07/09/21 08:45 Nasal Coronavir HKU1 PCR NOT DETECTED 07/09/21 08:45 Nasal Coronavir NL63 PCR NOT DETECTED 07/09/21 08:45 Nasal Coronavir OC43 PCR NOT DETECTED 07/09/21 08:45 Nasal Enterovir/Rhinovir PCR NOT DETECTED 07/09/21 08:45 Nasal Influenza B PCR NOT DETECTED 07/09/21 08:45 Nasal Influenza A PCR NOT DETECTED 07/09/21 08:45 Nasal Parainfluen 1 PCR NOT DETECTED 07/09/21 08:45 Nasal Parainfluen 2 PCR NOT DETECTED 07/09/21 08:45 Nasal Parainfluen 3 PCR NOT DETECTED 07/09/21 08:45 Nasal Parainfluen 4 PCR NOT DETECTED 07/09/21 08:45 Nasal RSV (PCR) NOT DETECTED 07/09/21 08:45 Nasal Screen MRSA (PCR) NEGATIVE (NEGATIVE) 07/09/21 12:56 Nasal B.pertussis DNA PCR NOT DETECTED 07/09/21 08:45 Nasal C.pneumoniae (PCR) NOT DETECTED 07/09/21 08:45 Kody Human Metapneumo PCR NOT DETECTED 07/09/21 08:45 Nasal M.pneumoniae (PCR) NOT DETECTED 07/09/21 08:45 Nasal SARS-CoV-2 (PCR) DETECTED A 07/09/21 08:45 - Procedures Procedures: Procedures HEART COUNTERSHOCK NEC (03/06/14) OTH & OPEN REPAIR DIRECT INGUINAL HERNIA W GRAFT OR PROSTH (08/03/14) SPERMATIC CORD LIGATION (08/03/14) ABX Reporting Has patient been on IV antibiotics over the past 48 hours?: No Current Medications - Current Medications Current Medications: Active Medications Acetaminophen (Acetaminophen 325 Mg Tablet) 650 mg PO Q4HR PRN PRN Reason: Pain 1 to 4 Apixaban (Apixaban 5 Mg Tablet) 5 mg PO BID [facility] Last Admin: 07/11/21 08:00 Dose: 5 mg Documented by: Brimonidine Tartrate (Brimonidine 0.2% Ophth Drops 5 Ml) 1 drops EACHEYE BID [facility] Last Admin: 07/11/21 09:14 Dose: 1 drops Documented by: Dexamethasone (Dexamethasone 4 Mg Tablet) 6 mg PO DAILY [facility] Last Admin: 07/11/21 08:01 Dose: 6 mg Documented by: Remdesivir 100 mg/ Sodium (Chloride) 100 mls @ 200 mls/hr IV DAILY [facility] Stop: 07/13/21 09:29 Last Infusion: 07/11/21 09:50 Dose: Infused Documented by: Latanoprost (Latanoprost 0.005% Ophth Drops) 1 drops [facility] Pt Own Med ( Dofetilide [Tikosyn] 500 Mcg Capsule) 500 mcg PO BID [facility] Last Admin: 07/11/21 08:02 Dose: 500 mcg Documented by: Ondansetron HCl (Ondansetron 4 Mg/2 Ml Vial) 4 mg IVP Q6HR PRN PRN Reason: Nausea / Vomiting Senna (Senna 8.6 Mg Tablet) 8.6 - 17.2 mg PO DAILY [facility] Last Admin: 07/11/21 09:15 Dose: 8.6 mg Documented by: Sodium Chloride (Sodium Chloride Flush 0.9% 10 Ml Syringe) 10 ml IVP PRN PRN PRN Reason: NEEDED PER PROVIDER ORDERS Sodium Chloride (Sodium Chloride Flush 0.9% 10 Ml Syringe) 10 ml IVP 0100, 0900,1700 [facility] Last Admin: 07/11/21 09:13 Dose: 10 ml Documented by: Tamsulosin HCl (Tamsulosin 0.4 Mg Capsule) 0.4 mg PO DAILY [facility] Last Admin: 07/11/21 08:01 Dose: 0.4 mg Documented by: Latanoprost 0.005% Ophth Drops [Xalatan Ophth Drops] 1 drop EACHEYE DAILY 03/05/14 Tamsulosin [Flomax] 0.4 mg PO DAILY 01/14/16 Dofetilide [Tikosyn] 500 mcg PO BID 11/15/20 amLODIPine [Norvasc] 5 mg PO BID 11/15/20 Potassium Chloride [K-Dur] 20 meq PO DAILY 01/29/21 Brimonidine 0.2% Ophth Drops [Alphagan P 0.2% Ophth Drops] 75 drops EACHEYE DAILY 07/09/21
[2021-07-11] MEDS: LATANOPROST 0.005% OPHTH DROPS EACHEYE SCH (20:58)
[2021-07-12 05:13] LABS: BASOPHILS % (AUTO) 0.1 %; HCT - HEMATOCRIT 38.1 % (42.0-52.0); HGB - HEMOGLOBIN 13.1 g/dL (14.0-18.0); LYMPHOCYTES # (AUTO) 0.8 10^3/uL (1.5-3.5); MEAN CORPUSCULAR HEMOGLOBIN 31.6 pg (27.0-31.0); MEAN CORPUSCULAR HGB CONC 34.4 g/dL (32.0-36.0); MEAN CORPUSCULAR VOLUME 91.8 fL (80.0-94.0); MEAN PLATELET VOLUME 9.8 fL (7.4-11.4); MONOCYTES # (AUTO) 0.5 10^3/uL (0.0-1.0); MONOCYTES % (AUTO) 6.3 %; NEUTROPHILS # (AUTO) 6.9 10^3/uL (1.5-6.6); NEUTROPHILS % (AUTO) 82.9 %; PLT - PLATELET COUNT 259 10^3/uL (130-450); RED BLOOD COUNT 4.15 10^6/uL (4.70-6.10); RED CELL DISTRIBUTION WIDTH 11.9 % (12.0-15.0); WHITE BLOOD COUNT 8.4 x10^3/uL (4.8-10.8)
[2021-07-12 05:23] LABS: CALCIUM 8.4 mg/dL (8.5-10.3); CREATININE 0.8 mg/dL (0.6-1.2); POTASSIUM 3.5 mmol/L (3.5-5.0)
[2021-07-12] MEDS: DOFETILIDE 500 MCG PO SCH ×2 (08:57→21:05)
[2021-07-12] MEDS: SENNA 8.6 MG TABLET PO SCH (08:57)
[2021-07-12] MEDS: dexAMETHasone 4 MG TABLET PO SCH (08:58)
[2021-07-12] MEDS: TAMSULOSIN 0.4 MG CAPSULE PO SCH (08:58)
[2021-07-12] MEDS: APIXABAN 5 MG TABLET PO SCH ×2 (08:58→21:05)
[2021-07-12] MEDS: SODIUM CHLORIDE FLUSH 0.9% 10 ML SYRINGE IVP SCH ×3 (08:59→21:06)
[2021-07-12] MEDS: REMDESIVIR 100MG VIAL 100 MG in SODIUM CHLORIDE 0.9% 100ML 100 ML IV SCH (08:59)
[2021-07-12] MEDS: BRIMONIDINE 0.2% OPHTH DROPS 5 ML EACHEYE SCH ×2 (09:05→21:05)
--- NOTE | 2021-07-12 10:25 | PROVIDER PROGRESS NOTE ---
Assessment/Plan - Problem List (1) Respiratory failure with hypoxia Assessment/Plan: 07/12 stable, pt has no acute respiratory distress by O2 supplement, pt has 94% on 3 liter of O2, day 3 on Covid 19 treatment. continue Covid 19 treatment, and continue O2 supplement as needed. 07/11 slight improved. pt has 95% sat on 3 liter of O2, continue remdesivir, decatron, and Eliquis. 07/10 pt need more oxygen supplement, pt has 94% on 6 LPM of O2 but pt has no respiratory distress. continue supplement oxygen for patient as needed, we will treat for COVID-19 with remdesivir, decatron, and Eliquis. continue vital and tele monitor. Patient has fever, patient had 87% oxygen saturation on room air with tachypnea. COVID-19 test today is positive, chest x-ray show bilaterally COVID-19 pneumonia. We will order supplement oxygen for patient as needed, we will treat for COVID-19 with remdesivir, decatron, and Eliquis (2) Pneumonia due to COVID-19 virus Conclusion/Plan: pt is Covid 19 positive and hypoxia. We will order supplement oxygen for patient as needed, we will treat for COVID-19 with remdesivir, decatron, and Eliquis (3) HTN (hypertension) Conclusion/Plan: stable, resume his home meds Norvasc after confirmed (4) Atrial fibrillation Conclusion/Plan: 07/12 stable, pt denies dizzy or lightheaded, pt is asymptomatic for bradycardia. pt state he will followup with catering convention services manager after d/c from hospital 07/11 pt show bradycardia but pt is totally asymptomatic. he denies dizziness, lightheaded, chest pain. he feel comfortable without distress. Patient take Tikosyn by his catering convention services manager prescribed. pt may followup with catering convention services manager after d/c to management of his afib 07/10 stable, continue home meds, continue tele monitor Patient has a history of atrial fibrillation, patient had ablation about 2 weeks ago. Now patient heart rate is controlled. Patient take Tikosyn and Xarelto in the home. we order EKG, resume home meds, continue Tele monitor. Hospital does not have Xarelto now, instead we will order Eliquis for patient. Patient also has Eliquis for his COVID-19 treatment (5) Benign prostatic hyperplasia Conclusion/Plan: We will resume patient home Flomax, Monitor urine output. Qualifiers: Lower urinary tract symptom presence: symptoms present (6) Glaucoma Conclusion/Plan: Stable, resume home medications (3) Benign prostatic hyperplasia Qualifiers: Lower urinary tract symptom presence: symptoms present - Current Meds Current Meds: Current Medications Generic Name Dose Route Start Last Admin Trade Name Freq PRN Reason Stop Dose Admin Apixaban 5 mg 07/09/21 21:00 07/12/21 08:58 Apixaban 5 Mg Tablet PO 5 mg BID [facility] Administration Brimonidine Tartrate 1 drops 07/10/21 22:00 07/12/21 09:05 Brimonidine 0.2% Ophth Drops 5 Ml EACHEYE 1 drops BID [facility] Administration Dexamethasone 6 mg 07/09/21 14:07 07/12/21 08:58 Dexamethasone 4 Mg Tablet PO 6 mg DAILY [facility] Administration Remdesivir 100 mg/ Sodium 100 mls @ 200 mls/hr 07/10/21 09:00 07/12/21 09:45 Chloride IV 07/13/21 09:29 Infused DAILY [facility] Infusion Latanoprost 1 drops 07/11/21 21:00 07/11/21 20:58 Latanoprost 0.005% Ophth Drops EACHEYE 1 drops HS [facility] Administration Pt Own Med ( 500 mcg 07/09/21 21:00 07/12/21 08:57 Dofetilide [Tikosyn] PO 500 mcg 500 Mcg Capsule) BID [facility] Administration Senna 8.6 - 17.2 mg 07/11/21 09:00 07/12/21 08:57 Senna 8.6 Mg Tablet PO 8.6 mg DAILY [facility] Administration Sodium Chloride 10 ml 07/09/21 17:00 07/12/21 09:49 Sodium Chloride Flush 0.9% 10 Ml Syringe IVP 10 ml 0100,0900,1700 [facility] Administration Tamsulosin HCl 0.4 mg 07/10/21 09:00 07/12/21 08:58 Tamsulosin 0.4 Mg Capsule PO 0.4 mg DAILY [facility] Administration - Lab Result Fish Bone Diagrams: 07/12/21 04:41 07/12/21 04:41 - Additional Planning My Orders: My Active Orders 07/13/21 05:00 BMP - BASIC METABOLIC PANEL [CHEM] DAILYLAB CBC - COMP BLD CT W/AUTO DIFF [HEME] DAILYLAB 07/14/21 05:00 BMP - BASIC METABOLIC PANEL [CHEM] DAILYLAB CBC - COMP BLD CT W/AUTO DIFF [HEME] DAILYLAB 07/15/21 05:00 BMP - BASIC METABOLIC PANEL [CHEM] DAILYLAB CBC - COMP BLD CT W/AUTO DIFF [HEME] DAILYLAB 07/16/21 05:00 BMP - BASIC METABOLIC PANEL [CHEM] DAILYLAB CBC - COMP BLD CT W/AUTO DIFF [HEME] DAILYLAB 07/17/21 05:00 BMP - BASIC METABOLIC PANEL [CHEM] DAILYLAB CBC - COMP BLD CT W/AUTO DIFF [HEME] [facility]ILYLAB 07/18/21 05:00 BMP - BASIC METABOLIC PANEL [CHEM] DAILYLAB CBC - COMP BLD CT W/AUTO DIFF [HEME] [facility]ILYLAB 07/19/21 05:00 BMP - BASIC METABOLIC PANEL [CHEM] DAILYLAB CBC - COMP BLD CT W/AUTO DIFF [HEME] DAILYLAB Subjective - Subjective Patient Reports: Resting Comfortably Objective Vital Signs: Vital Signs - 24 hr 07/11/21 07/12/21 07/12/21 16:00 00:00 05:00 Temperature 37.0 C 37.1 C 36.8 C Heart Rate [7] Heart Rate [ 53 L 53 L 73 Monitoring electrodes] Respiratory 21 25 H 24 Rate Blood Pressure 137/65 H 128/61 130/61 [Right Brachial artery] O2 Saturation 93 91 L 92 07/12/21 07:40 Temperature 36.5 C Heart Rate [7] 47 L Heart Rate [ 47 L Monitoring electrodes] Respiratory 21 Rate Blood Pressure 140/70 H [Right Brachial artery] O2 Saturation 94 Oxygen O2 Source Nasal cannula Oxygen Flow Rate 4 I&O (Last 24 Hrs): Intake and Output Totals x24h 07/10/21 07/11/21 07/12/21 23:59 23:59 23:59 Intake Total 1750 1740 1190 Output Total 1200 1875 1325 Balance 550 -135 -135 General: Alert, Oriented x3, Cooperative, No acute distress HEENT: Atraumatic Neck: Supple Lymphatic: no adenopathy Neuro: Alert, Non Focal, Oriented Times 3 Cardiovascular: Regular rate, Normal S1, Normal S2 Respiratory: Chest non-tender, No respiratory distress Abdomen: Normal bowel sounds, Soft Extremities: Normal pulses - Results Results: Laboratory Results WBC 8.4 x10^3/uL (4.8-10.8) 07/12/21 04:41 RBC 4.15 10^6/uL (4.70-6.10) L 07/12/21 04:41 Hgb 13.1 g/dL (14.0-18.0) L 07/12/21 04:41 Hct 38.1 % (42.0-52.0) L 07/12/21 04:41 MCV 91.8 fL (80.0-94.0) 07/12/21 04:41 MCH 31.6 pg (27.0-31.0) H 07/12/21 04:41 MCHC 34.4 g/dL (32.0-36.0) 07/12/21 04:41 RDW 11.9 % (12.0-15.0) L 07/12/21 04:41 Plt Count 259 10^3/uL (130-450) 07/12/21 04:41 MPV 9.8 fL (7.4-11.4) 07/12/21 04:41 Neut # (Auto) 6.9 10^3/uL (1.5-6.6) H 07/12/21 04:41 Lymph # (Auto) 0.8 10^3/uL (1.5-3.5) L 07/12/21 04:41 [place] # (Auto) 0.5 10^3/uL (0.0-1.0) 07/12/21 04:41 Eos # (Auto) 0.0 10^3/uL (0.0-0.7) 07/12/21 04:41 Baso # (Auto) 0.0 10^3/uL (0.0-0.1) 07/12/21 04:41 Absolute Nucleated RBC 0.00 x10^3/uL 07/12/21 04:41 Total Counted 100 07/10/21 04:21 Band Neuts % (Manual) 4 % (0-10) 07/10/21 04:21 Abnorm Lymph % (Manual) 0 % 07/10/21 04:21 Nucleated RBC % 0.0 /100WBC 07/12/21 04:41 Neutrophils # (Manual) 2.6 10^3/uL (1.5-6.6) 07/10/21 04:21 Lymphocytes # (Manual) 0.4 10^3/uL (1.5-3.5) L 07/10/21 04:21 Monocytes # (Manual) 0.1 10^3/uL (0.0-1.0) 07/10/21 04:21 Eosinophils # (Manual) 0.0 10^3/uL (0-0.7) 07/10/21 04:21 Basophils # (Manual) 0.0 10^3/uL (0-0.1) 07/10/21 04:21 Differential Comment MANUAL DIFFERENTIAL 07/10/21 04:21 Platelet Estimate NORMAL (130-450,000) (NORMAL) 07/10/21 04:21 RBC Morph Micro Appear NORMAL APPEARANCE (NORMAL) 07/10/21 04:21 Sodium 139 mmol/L (135-145) 07/12/21 04:41 Potassium 3.5 mmol/L (3.5-5.0) 07/12/21 04:41 Chloride 102 mmol/L (101-111) 07/12/21 04:41 Carbon Dioxide 24 mmol/L (21-32) 07/12/21 04:41 Anion Gap 13.0 (6-13) 07/12/21 04:41 BUN 24 mg/dL (6-20) H 07/12/21 04:41 Creatinine 0.8 mg/dL (0.6-1.2) 07/12/21 04:41 Estimated GFR (MDRD) 94 (>89) 07/12/21 04:41 Glucose 123 mg/dL (70-100) H 07/12/21 04:41 Calcium 8.4 mg/dL (8.5-10.3) L 07/12/21 04:41 Total Bilirubin 1.6 mg/dL (0.2-1.0) H 07/09/21 08:40 AST 32 IU/L (10-42) 07/09/21 08:40 ALT 35 IU/L (10-60) 07/09/21 08:40 Alkaline Phosphatase 58 IU/L (42-121) 07/09/21 08:40 Total Protein 6.7 g/dL (6.7-8.2) 07/09/21 08:40 Albumin 3.7 g/dL (3.2-5.5) 07/09/21 08:40 Globulin 3.0 g/dL (2.1-4.2) 07/09/21 08:40 Albumin/Globulin Ratio 1.2 (1.0-2.2) 07/09/21 08:40 Lipase 47 U/L (22-51) 07/09/21 08:40 Nasal Adenovirus (PCR) NOT DETECTED 07/09/21 08:45 Nasal B. parapertussis DNA (PCR) NOT DETECTED 07/09/21 08:45 Nasal Coronavir 229E PCR NOT DETECTED 07/09/21 08:45 Nasal Coronavir HKU1 PCR NOT DETECTED 07/09/21 08:45 Nasal Coronavir NL63 PCR NOT DETECTED 07/09/21 08:45 Nasal Coronavir OC43 PCR NOT DETECTED 07/09/21 08:45 Nasal Enterovir/Rhinovir PCR NOT DETECTED 07/09/21 08:45 Nasal Influenza B PCR NOT DETECTED 07/09/21 08:45 Nasal Influenza A PCR NOT DETECTED 07/09/21 08:45 Nasal Parainfluen 1 PCR NOT DETECTED 07/09/21 08:45 Nasal Parainfluen 2 PCR NOT DETECTED 07/09/21 08:45 Nasal Parainfluen 3 PCR NOT DETECTED 07/09/21 08:45 Nasal Parainfluen 4 PCR NOT DETECTED 07/09/21 08:45 Nasal RSV (PCR) NOT DETECTED 07/09/21 08:45 Nasal Screen MRSA (PCR) NEGATIVE (NEGATIVE) 07/09/21 12:56 Nasal B.pertussis DNA PCR NOT DETECTED 07/09/21 08:45 Nasal C.pneumoniae (PCR) NOT DETECTED 07/09/21 08:45 [place] Human Metapneumo PCR NOT DETECTED 07/09/21 08:45 Nasal M.pneumoniae (PCR) NOT DETECTED 07/09/21 08:45 Nasal SARS-CoV-2 (PCR) DETECTED A 07/09/21 08:45 - Procedures Procedures: Procedures HEART COUNTERSHOCK NEC (03/06/14) OTH & OPEN REPAIR DIRECT INGUINAL HERNIA W GRAFT OR PROSTH (08/03/14) SPERMATIC CORD LIGATION (08/03/14) ABX Reporting Has patient been on IV antibiotics over the past 48 hours?: No Current Medications - Current Medications Current Medications: Active Medications Acetaminophen (Acetaminophen 325 Mg Tablet) 650 mg PO Q4HR PRN PRN Reason: Pain 1 to 4 Apixaban (Apixaban 5 Mg Tablet) 5 mg PO BID [facility] Last Admin: 07/12/21 08:58 Dose: 5 mg Documented by: Brimonidine Tartrate (Brimonidine 0.2% Ophth Drops 5 Ml) 1 drops EACHEYE BID [facility] Last Admin: 07/12/21 09:05 Dose: 1 drops Documented by: Dexamethasone (Dexamethasone 4 Mg Tablet) 6 mg PO DAILY [facility] Last Admin: 07/12/21 08:58 Dose: 6 mg Documented by: Remdesivir 100 mg/ Sodium (Chloride) 100 mls @ 200 mls/hr IV DAILY [facility] Stop: 07/13/21 09:29 Last Infusion: 07/12/21 09:45 Dose: Infused Documented by: Latanoprost (Latanoprost 0.005% Ophth Drops) 1 drops EACHEYE [facility] Last Admin: 07/11/21 20:58 Dose: 1 drops Documented by: Pt Own Med ( Dofetilide [Tikosyn] 500 Mcg Capsule) 500 mcg PO BID [facility] Last Admin: 07/12/21 08:57 Dose: 500 mcg Documented by: Ondansetron HCl (Ondansetron 4 Mg/2 Ml Vial) 4 mg IVP Q6HR PRN PRN Reason: Nausea / Vomiting Senna (Senna 8.6 Mg Tablet) 8.6 - 17.2 mg PO DAILY [facility] Last Admin: 07/12/21 08:57 Dose: 8.6 mg Documented by: Sodium Chloride (Sodium Chloride Flush 0.9% 10 Ml Syringe) 10 ml IVP PRN PRN PRN Reason: NEEDED PER PROVIDER ORDERS Sodium Chloride (Sodium Chloride Flush 0.9% 10 Ml Syringe) 10 ml IVP 0100,0900,1700 [facility] Last Admin: 07/12/21 09:49 Dose: 10 ml Documented by: Tamsulosin HCl (Tamsulosin 0.4 Mg Capsule) 0.4 mg PO DAILY [facility] Last Admin: 07/12/21 08:58 Dose: 0.4 mg Documented by: Latanoprost 0.005% Ophth Drops [Xalatan Ophth Drops] 1 drop EACHEYE DAILY 03/05/14 Tamsulosin [Flomax] 0.4 mg PO DAILY 01/14/16 Dofetilide [Tikosyn] 500 mcg PO BID 11/15/20 amLODIPine [Norvasc] 5 mg PO BID 11/15/20 Potassium Chloride [K-Dur] 20 meq PO DAILY 01/29/21 Brimonidine 0.2% Ophth Drops [Alphagan P 0.2% Ophth Drops] 75 drops EACHEYE DAILY 07/09/21
[2021-07-12] MEDS: LATANOPROST 0.005% OPHTH DROPS EACHEYE SCH (21:05)
[2021-07-13 05:31] LABS: BASOPHILS % (AUTO) 0.1 %; HCT - HEMATOCRIT 41.8 % (42.0-52.0); HGB - HEMOGLOBIN 14.7 g/dL (14.0-18.0); LYMPHOCYTES # (AUTO) 1.1 10^3/uL (1.5-3.5); LYMPHOCYTES % (AUTO) 11.3 %; MEAN CORPUSCULAR HGB CONC 35.2 g/dL (32.0-36.0); MEAN CORPUSCULAR VOLUME 91.1 fL (80.0-94.0); MEAN PLATELET VOLUME 9.5 fL (7.4-11.4); MONOCYTES # (AUTO) 0.7 10^3/uL (0.0-1.0); MONOCYTES % (AUTO) 7.2 %; NEUTROPHILS # (AUTO) 7.5 10^3/uL (1.5-6.6); NEUTROPHILS % (AUTO) 79.3 %; PLT - PLATELET COUNT 307 10^3/uL (130-450); RED BLOOD COUNT 4.59 10^6/uL (4.70-6.10); RED CELL DISTRIBUTION WIDTH 11.7 % (12.0-15.0); WHITE BLOOD COUNT 9.4 x10^3/uL (4.8-10.8)
[2021-07-13 05:40] LABS: CALCIUM 8.8 mg/dL (8.5-10.3); CREATININE 0.8 mg/dL (0.6-1.2); POTASSIUM 3.6 mmol/L (3.5-5.0)
--- NOTE | 2021-07-13 07:55 | PROVIDER PROGRESS NOTE ---
Subjective - Prog Note Date Prog Note Date: 07/13/21 Prog Note Time: 07:53 - Subjective Pt reports feeling: Improved Subjective: He is ambulatory in his room. Goes to the bathroom and comes back without any tachypnea but he says that it does wipe him out a little bit. Eating his food. No chest pain. No palpitations. No diarrhea. No abdominal pain. He [place] alone on [place]. Manages all himself with gardens, livestock, cleaning his house, etc. He does have some friends that will support him. Current Medications - Current Medications Current Medications: Active Medications Acetaminophen (Acetaminophen 325 Mg Tablet) 650 mg PO Q4HR PRN PRN Reason: Pain 1 to 4 Apixaban (Apixaban 5 Mg Tablet) 5 mg PO BID [facility] Last Admin: 07/12/21 21:05 Dose: 5 mg Documented by: Brimonidine Tartrate (Brimonidine 0.2% Ophth Drops 5 Ml) 1 drops EACHEYE BID [facility] Last Admin: 07/12/21 21:05 Dose: 1 drops Documented by: Dexamethasone (Dexamethasone 4 Mg Tablet) 6 mg PO DAILY [facility] Last Admin: 07/12/21 08:58 Dose: 6 mg Documented by: Remdesivir 100 mg/ Sodium (Chloride) 100 mls @ 200 mls/hr IV DAILY [facility] Stop: 07/13/21 09:29 Last Infusion: 07/12/21 09:45 Dose: Infused Documented by: Latanoprost (Latanoprost 0.005% Ophth Drops) 1 drops EACHEYE HS [facility] Last Admin: 07/12/21 21:05 Dose: 1 drops Documented by: Pt Own Med ( Dofetilide [Tikosyn] 500 Mcg Capsule) 500 mcg PO BID [facility] Last Admin: 07/12/21 21:05 Dose: 500 mcg Documented by: Ondansetron HCl (Ondansetron 4 Mg/2 Ml Vial) 4 mg IVP Q6HR PRN PRN Reason: Nausea / Vomiting Senna (Senna 8.6 Mg Tablet) 8.6 - 17.2 mg PO DAILY [facility] Last Admin: 07/12/21 08:57 Dose: 8.6 mg Documented by: Sodium Chloride (Sodium Chloride Flush 0.9% 10 Ml Syringe) 10 ml IVP PRN PRN PRN Reason: NEEDED PER PROVIDER ORDERS Sodium Chloride (Sodium Chloride Flush 0.9% 10 Ml Syringe) 10 ml IVP 0100,0900,1700 [facility] Last Admin: 07/12/21 21:06 Dose: 10 ml Documented by: Tamsulosin HCl (Tamsulosin 0.4 Mg Capsule) 0.4 mg PO DAILY [facility] Last Admin: 07/12/21 08:58 Dose: 0.4 mg Documented by: Latanoprost 0.005% Ophth Drops [Xalatan Ophth Drops] 1 drop EACHEYE DAILY 03/05/14 Tamsulosin [Flomax] 0.4 mg PO DAILY 01/14/16 Dofetilide [Tikosyn] 500 mcg PO BID 11/15/20 amLODIPine [Norvasc] 5 mg PO BID 11/15/20 Potassium Chloride [K-Dur] 20 meq PO DAILY 01/29/21 Brimonidine 0.2% Ophth Drops [Alphagan P 0.2% Ophth Drops] 75 drops EACHEYE DAILY 07/09/21 Objective - Vital Signs/Intake & Output Reviewed Vital Signs: Yes Vital Signs: Vital Signs x48h Temp Pulse Pulse Resp BP BP Pulse Ox 07/13/21 07:42 37.2 C 52 L 19 132/67 H 95 07/13/21 05:57 37.1 C 50 L 24 146/69 H 94 07/13/21 00:00 47 L 24 93 Intake & Output: Intake & Output 07/10/21 07/11/21 07/12/21 07/13/21 23:59 23:59 23:59 23:59 Intake Total 1750 1740 1950 Output Total 1200 1875 2425 850 Balance 550 -135 -475 -850 - Objective General Appearance: positive: No acute distress, Alert Eyes Bilateral: positive: PERRL, EOMI ENT: positive: No signs of dehydration Neck: positive: No JVD. negative: Stiff neck Respiratory: positive: No respiratory distress, Other (he's very clear, just still hypoxic. He is 92% on RA at rest but drops to 87-88% getting up to walk in room. Needs 1-2 liters to bring him back up). negative: Wheezes, Rales, Rhonchi Cardiovascular: positive: Regular rate & rhythm, No murmur, No gallop Abdomen: positive: Non-tender, No organomegaly, Nml bowel sounds, No distention Skin: positive: Warm, Dry Extremities: positive: Full ROM, No pedal edema Neurologic/Psychiatric: positive: Oriented x3, CN's nml (2-12), Motor nml - Lab Results Fish Bones: 07/13/21 04:58 07/13/21 04:58 Other Labs: Lab Results x24hrs 07/13/21 07/13/21 Range/Units 04:58 04:58 WBC 9.4 (4.8-10.8) x10^3/uL RBC 4.59 L (4.70-6.10) 10^6/uL Hgb 14.7 (14.0-18.0) g/dL Hct 41.8 L (42.0-52.0) % MCV 91.1 (80.0-94.0) fL MCH 32.0 H (27.0-31.0) pg MCHC 35.2 (32.0-36.0) g/dL RDW 11.7 L (12.0-15.0) % Plt Count 307 (130-450) 10^3/uL MPV 9.5 (7.4-11.4) fL Neut # (Auto) 7.5 H (1.5-6.6) 10^3/uL Lymph # (Auto) 1.1 L (1.5-3.5) 10^3/uL [place] # (Auto) 0.7 (0.0-1.0) 10^3/uL Eos # (Auto) 0.0 (0.0-0.7) 10^3/uL Baso # (Auto) 0.0 (0.0-0.1) 10^3/uL Absolute Nucleated RBC 0.00 x10^3/uL Nucleated RBC % 0.0 /100WBC Sodium 138 (135-145) mmol/L Potassium 3.6 (3.5-5.0) mmol/L Chloride 100 L (101-111) mmol/L Carbon Dioxide 25 (21-32) mmol/L Anion Gap 13.0 (6-13) BUN 23 H (6-20) mg/dL Creatinine 0.8 (0.6-1.2) mg/dL Estimated GFR (MDRD) 94 (>89) Glucose 123 H (70-100) mg/dL Calcium 8.8 (8.5-10.3) mg/dL ABX Reporting Has patient been on IV antibiotics over the past 48 hours?: No Assessment/Plan - Problem List (1) Respiratory failure with hypoxia Impression: He presented with fever, 87% oxygen saturation on room air, tachypnea, labored respiration. Chest x-ray had bilateral COVID-19 pneumonia pattern. He has been on supplemental oxygen since that time. He peaked at 6 L requirement on July 10. Since that time he is gone back down to 5 L then 4 L than 3 L and he has been on 2 L since yesterday afternoon. I am hoping that he will get down to adequate room air saturations quickly enough for him to go home. He is doing very well other than the hypoxia. (2) Pneumonia due to COVID-19 virus Conclusion/Plan: pt is Covid 19 positive and hypoxic. Today is Day #5/5 of remdesivir and day #6 decadron. We will continue decadron for 10 days. Eliquis is for DVT and overall hypercoagulable status and a COVID-19 patient. That will be stopped once he gets home. (3) HTN (hypertension) Conclusion/Plan: stable, resume his home meds Norvasc after confirmed (4) Atrial fibrillation Conclusion/Plan: He had an ablation 2 weeks ago. He is on Tikosyn and Xarelto at home. Since being here he has been in sinus. Our formulary does not allow for Xarelto so he is on Eliquis. He will be resumed on Eliquis at discharge. Occasionally he has had bradycardia but has been asymptomatic with this. He denies dizziness, lightheadedness, chest pain. Plan: No changes for today. He will follow up with cardiology in the outpatient setting (5) Benign prostatic hyperplasia Conclusion/Plan: We will resume patient home Flomax, Monitor urine output. Qualifiers: Lower urinary tract symptom presence: symptoms present (6) Glaucoma Conclusion/Plan: Stable, resume home medications
[2021-07-13] MEDS: dexAMETHasone 4 MG TABLET PO SCH (08:02)
[2021-07-13] MEDS: TAMSULOSIN 0.4 MG CAPSULE PO SCH (08:03)
[2021-07-13] MEDS: APIXABAN 5 MG TABLET PO SCH ×2 (08:03→20:45)
[2021-07-13] MEDS: SENNA 8.6 MG TABLET PO SCH (08:03)
[2021-07-13] MEDS: DOFETILIDE 500 MCG PO SCH ×2 (08:04→20:45)
[2021-07-13] MEDS: SODIUM CHLORIDE FLUSH 0.9% 10 ML SYRINGE IVP SCH ×2 (08:40→09:14)
[2021-07-13] MEDS: REMDESIVIR 100MG VIAL 100 MG in SODIUM CHLORIDE 0.9% 100ML 100 ML IV SCH (08:41)
[2021-07-13] MEDS: BRIMONIDINE 0.2% OPHTH DROPS 5 ML EACHEYE SCH ×2 (08:41→20:46)
[2021-07-13] MEDS: LATANOPROST 0.005% OPHTH DROPS EACHEYE SCH (20:46)
[2021-07-14] MEDS: SODIUM CHLORIDE FLUSH 0.9% 10 ML SYRINGE IVP SCH ×2 (00:43→08:55)
[2021-07-14 05:10] LABS: BASOPHILS % (AUTO) 0.2 %; HCT - HEMATOCRIT 40.6 % (42.0-52.0); HGB - HEMOGLOBIN 14.5 g/dL (14.0-18.0); LYMPHOCYTES # (AUTO) 1.2 10^3/uL (1.5-3.5); LYMPHOCYTES % (AUTO) 11.4 %; MEAN CORPUSCULAR HEMOGLOBIN 31.9 pg (27.0-31.0); MEAN CORPUSCULAR HGB CONC 35.7 g/dL (32.0-36.0); MEAN CORPUSCULAR VOLUME 89.4 fL (80.0-94.0); MEAN PLATELET VOLUME 9.4 fL (7.4-11.4); MONOCYTES # (AUTO) 0.9 10^3/uL (0.0-1.0); MONOCYTES % (AUTO) 8.6 %; NEUTROPHILS # (AUTO) 8.3 10^3/uL (1.5-6.6); NEUTROPHILS % (AUTO) 76.1 %; PLT - PLATELET COUNT 314 10^3/uL (130-450); RED BLOOD COUNT 4.54 10^6/uL (4.70-6.10); RED CELL DISTRIBUTION WIDTH 11.7 % (12.0-15.0); WHITE BLOOD COUNT 10.9 x10^3/uL (4.8-10.8)
[2021-07-14 05:22] LABS: CALCIUM 8.6 mg/dL (8.5-10.3); CREATININE 0.8 mg/dL (0.6-1.2); POTASSIUM 3.4 mmol/L (3.5-5.0)
[2021-07-14] MEDS: APIXABAN 5 MG TABLET PO SCH (08:52)
[2021-07-14] MEDS: dexAMETHasone 4 MG TABLET PO SCH (08:52)
[2021-07-14] MEDS: TAMSULOSIN 0.4 MG CAPSULE PO SCH (08:53)
[2021-07-14] MEDS: BRIMONIDINE 0.2% OPHTH DROPS 5 ML EACHEYE SCH (08:54)
[2021-07-14] MEDS: SENNA 8.6 MG TABLET PO SCH (08:55)
[2021-07-14] MEDS: DOFETILIDE 500 MCG PO SCH (08:55)
--- NOTE | 2021-07-14 10:52 | Discharge Plan ---
Discharge Plan Problem Reviewed?: Yes Disposition: Home, Self Care Condition: Good Prescriptions: dexAMETHasone [Decadron] 6 mg PO DAILY #6 tablet Diet: Regular Activity Restrictions: Activity as Tolerated Shower Restrictions: No Driving Restrictions: No Health Concerns: You came to the hospital with Covid pneumonia. You had had an ablation for a heart rhythm problem on approximately June 27 and 2 to 3 days later started getting symptoms of coughing, fatigue, fever. You presented to the hospital on July 09. You were Covid positive. He received remdesivir and steroids. You have not completed treatment except for the steroids. Your oxygen levels are now normal. You eating well and ambulating in room without assistance. We think you are stable to go home. Plan of Treatment: 1. You need to complete 4 more days of Decadron. I have given you enough tablets to do 1/2 tablets a day for 4 days. 2. Please see your primary care provider in follow-up in the next 2 weeks. 3. We would recommend that you use a mask if you need to leave your home. Do so religiously for the next 4 to 5 days. If someone comes to has to take care of you or help you, they need to wear a mask as well for the next 4 to 5 days. Care Goals: Symptom-free and complete treatment for Covid pneumonia Assessment: Patient understands care goals and will follow through. No Smoking: If you smoke, Please STOP! Call for help. Follow-up with: Jai Fuentes MD [Primary Care Provider] -
[2021-07-14 13:59] VITALS: BP 141/58
--- NOTE | 2021-07-14 19:23 | DISCHARGE SUMMARY ---
"Discharge Summary Admit Date: 07/09/21 Discharge Date: 07/14/21 Discharging Provider: Dolly Manriquez MD Primary Care Provider: MAI Daniels Code Status: Attempt Resuscitation Condition at Discharge: Good Discharge Disposition: 01 Home, Self Care - DIAGNOSES Discharge Diagnoses with Status of Each Condition: 1. Acute respiratory failure with hypoxia 2. Pneumonia due to COVID-19 3. Hypertension 4. Chronic atrial fibrillation 5. Benign prostatic hypertrophy 6. Glaucoma - HPI History of Present Illness: THis is a 76-year old male with A medical history Significantly of hypertension, atrial fibrillation which pt had an ablation for about 2 weeks at [facility], BPH, sleep apnea with CPAP use in the home, glaucoma, depression and anxiety Who Presents to the ER for shortness of breathing, hypoxia for his COVID-19 infection. pt is unvaccinated. Pt report shortly after returning from the hospital where he had an ablation for his atrial fibrillation, he developed cough and shortness of breathing, then his symptoms has been gradually progressive worsen, more shortness of breath, cough. Pt went to see his primary care doctor yesterday and was referred to the emergency department today for Regeneron. ER provider review pt is not a candidate for Regeneron. pt denies chest pain, abdominal pain. In ER, patient was found febrile at 38.9 temperature, Tachypnea with RR26, And 87% oxygen saturation on room air. Chest x-ray revealed bilaterally pulmonary opacities suggestive of pneumonia. Covid 19 test is positive. Discussed the care goal with the patient, patient wanted to be full code - Past Medical History Cardiovascular: reports: Hypertension, Atrial fibrillation Respiratory: reports: Sleep apnea, CPAP use Neuro: reports: None Endocrine/Autoimmune: reports: None GI: reports: None : reports: Benign prostate hypertrophy HEENT: reports: Glaucoma Psych: reports: Depression, Anxiety Musculoskeletal: reports: None Derm: reports: None MRSA Hx?: No - Past Surgical History Cardiovascular: reports: Cardiac catheterization, Other HEENT: reports: Tonsil/Adenoidectomy - CONSULTS | PROCEDURES Procedures: Chest x-ray with bilateral patchy infiltrates compatible with Covid pneumonia. Unchanged from 07/08/21 films. - HOSPITAL COURSE Hospital Course: He completed 5 days of remdesivir and 7 days of Decadron. He will need to complete 3 more days in the outpatient setting with oral medication. His peak supplemental oxygen requirement was 6 L and he has slowly gone back down to 2 L then room air. He was kept on Eliquis for DVT prophylaxis and hypercoagulable status in the face of Covid infection. Eliquis was stopped on discharge. Blood pressure was stable during his stay and his home medications were resumed. He had been in atrial fibrillation in the past but was converted to sinus with ablation. He remained in sinus rhythm while here. He was kept on Xarelto and Tikosyn at discharge. While here Eliquis was substituted for the Xarelto for formulary reasons. He was kept on his Flomax for his benign prostatic hypertrophy and his eyedrops for his history of glaucoma. At discharge he did not require oxygen. We strongly encouraged him to wear a mask at all times and isolation precautions could be discontinued since his been a minimum of 2 weeks since onset of symptoms.. Discharge temperature was 36.8. Heart rate 56. Blood pressure 141/58. Respirations 20. 95% on room air. He is ambulating without assistance. Eating 100% of his meals. Neck is supple. Lungs sounds are decreased especially at the bases but there are no crackles, rhonchi, tachypnea or increased respiratory effort. He has a regular rate and rhythm. A benign abdomen. Extremities without edema. He is discharged in stable condition and greater than 30 minutes was spent coordinating discharge.Him to see his primary care provider in follow-up. - ALLERGIES Allergies/Adverse Reactions: Allergies Allergy/AdvReac Type Severity Reaction Status Date / Time No Known Drug Allergies Allergy Verified 07/09/21 08:28 - MEDICATIONS Home Medications: Ambulatory Orders Medication Instructions Recorded Confirmed Latanoprost 0.005% Ophth Drops 1 drop EACHEYE DAILY 03/05/14 07/09/21 [Xalatan Ophth Drops] Tamsulosin [Flomax] 0.4 mg PO DAILY 01/14/16 07/09/21 Dofetilide [Tikosyn] 500 mcg PO BID 11/15/20 07/09/21 Rivaroxaban [Xarelto] 20 mg PO DAILY #30 tablet 11/15/20 07/09/21 amLODIPine [Norvasc] 5 mg PO BID 11/15/20 07/09/21 Potassium Chloride [K-Dur] 20 meq PO DAILY 01/29/21 07/09/21 Brimonidine 0.2% Ophth Drops 75 drops EACHEYE DAILY 07/09/21 07/09/21 [Alphagan P 0.2% Ophth Drops] dexAMETHasone [Decadron] 6 mg PO DAILY #6 tablet 07/14/21 - LABS Result Diagrams: 07/14/21 05:00 07/14/21 05:00"
== END 2021-07-14 13:45 | disposition home or self-care (01) | DRG 177 ==
LOC: ED 08:06 → ICU 11:19
PROVIDERS: ADMIT Nurse Practitioner Gerontology; ATTEND Specialist
PROC: XW033E5 Introduction of Remdesivir Anti-infective into Peripheral Vein, Percutaneous Approach, New Technology Group 5 (ICD-10-PCS; principal; 2021-07-09)
PROC: 3E0333Z Introduction of Anti-inflammatory into Peripheral Vein, Percutaneous Approach (ICD-10-PCS; 2021-07-09)
DX: U07.1 COVID-19 (principal); J12.82 Pneumonia due to coronavirus disease 2019; J96.01 Acute respiratory failure with hypoxia; I48.91 Unspecified atrial fibrillation; I48.20 Chronic atrial fibrillation, unspecified; I10 Essential (primary) hypertension; Z79.01 Long term (current) use of anticoagulants; N40.0 Benign prostatic hyperplasia without lower urinary tract symptoms; H40.9 Unspecified glaucoma; F32.9 Major depressive disorder, single episode, unspecified; F41.9 Anxiety disorder, unspecified; G47.30 Sleep apnea, unspecified
CPT/HCPCS: 36415; 71045; 80048; 80053; 83690; 85025; 87150; 87631; 93005; 99284; 99285; A9270; J8540; 0202U

== ENCOUNTER 2021-09-05 09:54 | Outpatient (CLI) | payer MEDICARE, BC ==
[2021-09-05 10:32] VITALS: BP 120/60
--- NOTE | 2021-09-05 10:32 | SLEEP CARE CONSULTATION ---
Information from patient questionnaire entered by Minor Malloy MA. I have reviewed and concur with the information entered by Minor Malloy MA. This document represents the service I personally performed and the decisions made by , Modesta Adams ARNP. History of Present Illness Service Date and Time: 09/05/2021 0954 Previous diagnosis: Mild, Obstructive Sleep Apnea-Hypopnea Syndrome AHI: 11.7 (in 2019) Reason for follow up: annual (LAST SEEN 08/2020) Equipment type: CPAP Equipment obtained from: Other ([facility]: getting supplies as needed) Mask style: Full face Mask brand: Resmed (AirFit [id number]) Backup mask available: Yes (old mask) Last cushion change: 1 year Prior sleep studies: Yes Year and Where: 2019 - [facility] HPI additional information: ERIN MELCHOR was diagnosed to have mild, AHI 11.7, obstructive sleep apnea- hypopnea syndrome and returned today for CPAP therapy annual follow-up. Sleep Study - Results Prior sleep studies: Yes Year and Where: 2019 - [email or web address] Compliance Data - Data Reviewed with Patient Average duration of nightly device use: 5 HOURS 27 MINUTES Compliance rate %: 93.3 Current pressure setting (cmH2O): 4-8 (avg 5.5) Humidity settin Heated hose settin Average residual AHI: 2.9 Average large leak: 22 SECONDS Subjective Patient concerns: reports: dry mouth, nose, throat (uses dry mouth wash and this helps a lot). denies: aerophagia, mask discomfort, air blowing in eyes, mask leak noise, condensation in mask/hose, nasal congestion, epistaxis, other Observed to snore while using device: No Current pressure setting perceived as: comfortable On therapy, patient: reports: sleeping better, awakening more refreshed, being more awake and alert during the day, more rested overall. denies: drowsiness while driving Initial [place] Sleepiness Scale score: 0 (in 2019) Current [place] Sleepiness Scale score: 3 Allergies and Home Medications Home medication list reviewed: Yes (no changes) Review of Systems Review of systems same as previous: No (heart ablation for AFib) Physical Exam Vital signs obtained and entered by: Jesus Morales MA Blood Pressure: 120/60 Cuff size: regular Heart Rate: 58 O2 Saturation: 96 Height: 5 ft 9 in Weight: 181 lb 12.8 oz Body Mass Index: 26.8 BMI Classification: Overweight Impression and Plan 1. Obstructive Sleep Apnea-Hypopnea Syndrome, mild, with excellent treatment compliance and good apnea control. On CPAP therapy, the patient has better sleep quality and is more rested overall. Patient has a DreamStation. He he was in the hospital for Covid and try to use his CPAP there. He is concerned that someone has adjusted his pressure settings. But, I checked his last visit and he has pressures are the same at 48 cm H2O. Patient would like his pressure c hanged to 4 to 6 cm H2O. He has average use 90% of the time is at 5.5 cm H2O with significant improvement of his sleep apnea. I will adjust his pressure to 4 to 6 cm H2O as requested. I informed the patient that [employer] has a recall on several devices like the patients machine. Patient was encouraged to register their device online with [employer] for the recall to see if their device is affected. If their device is affected they should start a claim. Patient denies any black particles seen in machine or hoses, any unusual odors coming from device. Patient has not experienced any physical symptoms such as upper airway irritation, headache, skin or eye irritation, asthma, nausea/vomiting, difficulty breathing or chest pain. If patient is not able to sleep due to waking up choking, gasping for air or other respiratory distress that they may decide to continue using it until it is either replaced or repaired. Patient advised that he could obtain a portable CPAP to use until he is able to get a replacement device. Patient will register his device and check it out to make sure of no debris. He thinks he will continue to use it at this time. Patient voiced understanding and agreement with plan. Patient's apnea severity and rationale for treatment to reduce apnea, improve sleep quality and reduce cardiovascular and cerebrovascular events was reviewed. I also reviewed the benefit of consistent device use of CPAP for arrhythmia. Patient was encouraged to lose weight for their overall health and to reduce apneas. * Vadito CPAP with [employer] for recall * Change auto CPAP pressure to 4-6 cmH2O * Notify me if snoring with mask or feeling that the pressure is too much or too little * Attempt to lose weight * Call this office if any problems using CPAP * Return for follow up in 1 year, or sooner if concerns arise Counseling Topics: Spare mask, Weight loss health impact Visit Type: In Office Time Spent with Patient (minutes): 28 Provider Statement: I spent 100% of the Face to Face Visit with the patient with greater than 50% spent counseling the patient and coordination of care.
== END 2021-09-05 09:55 | disposition home or self-care (01) ==
LOC: SC 09:54
PROVIDERS: ATTEND Nurse Practitioner Family
DX: G47.33 Obstructive sleep apnea (adult) (pediatric) (principal)
CPT/HCPCS: 99213; G0463; 99212

== ENCOUNTER 2021-10-09 15:27 | Outpatient (CLI) | payer MEDICARE, BC ==
[2021-10-09 17:53] LABS: BASOPHILS # (AUTO) 0.1 10^3/uL (0.0-0.1); BASOPHILS % (AUTO) 0.8 %; EOSINOPHILS # (AUTO) 0.1 10^3/uL (0.0-0.7); HCT - HEMATOCRIT 42.2 % (42.0-52.0); HGB - HEMOGLOBIN 14.6 g/dL (14.0-18.0); LYMPHOCYTES # (AUTO) 2.1 10^3/uL (1.5-3.5); LYMPHOCYTES % (AUTO) 26.8 %; MEAN CORPUSCULAR HEMOGLOBIN 31.2 pg (27.0-31.0); MEAN CORPUSCULAR HGB CONC 34.6 g/dL (32.0-36.0); MEAN CORPUSCULAR VOLUME 90.2 fL (80.0-94.0); MONOCYTES % (AUTO) 12.7 %; NEUTROPHILS # (AUTO) 4.6 10^3/uL (1.5-6.6); NEUTROPHILS % (AUTO) 58.3 %; PLT - PLATELET COUNT 236 10^3/uL (130-450); RED BLOOD COUNT 4.68 10^6/uL (4.70-6.10); RED CELL DISTRIBUTION WIDTH 12.9 % (12.0-15.0); WHITE BLOOD COUNT 7.9 x10^3/uL (4.8-10.8)
[2021-10-09 18:18] LABS: ALBUMIN 4.4 g/dL (3.2-5.5); ALBUMIN/GLOBULIN RATIO 1.5 (1.0-2.2); ALKALINE PHOSPHATASE 61 IU/L (42-121); ALT ALANINE AMINOTRANSFERASE 28 IU/L (10-60); AST ASPARTATE AMINOTRANSFERASE 27 IU/L (10-42); BILIRUBIN,TOTAL 1.8 mg/dL (0.2-1.0); BUN - BLOOD UREA NITROGEN 23 mg/dL (6-20); CALCIUM 9.2 mg/dL (8.5-10.3); CARBON DIOXIDE - CO2 29 mmol/L (21-32); CHLORIDE 101 mmol/L (101-111); CHOL/HDL RATIO 4.9 (<5.0); CHOLESTEROL 185 mg/dL; CREATININE 0.9 mg/dL (0.6-1.2); GFR - MDRD 82 (>89); GLUCOSE 101 mg/dL (70-100); HDL CHOLESTEROL 38 mg/dL; LDL CHOLESTEROL,CALCULATED 117 mg/dL; LDL/HDL RATIO 3.1 (<3.6); POTASSIUM 4.2 mmol/L (3.5-5.0); SODIUM 138 mmol/L (135-145); TOTAL PROTEIN 7.4 g/dL (6.7-8.2); TRIGLYCERIDES 150 mg/dL; VLDL CHOLESTEROL 30 mg/dL
[2021-10-09 18:20] LABS: THYROID STIMULATING HORMONE 1.74 uIU/mL (0.34-5.60)
[2021-10-09 19:39] LABS: ESTIMATED AVERAGE GLUCOSE 100 mg/dL (70-100); HEMOGLOBIN A1c% 5.1 % (4.27-6.07)
== END 2021-10-09 15:28 | disposition home or self-care (01) ==
LOC: LAB.N 15:27
PROVIDERS: ATTEND Family Medicine
DX: I10 Essential (primary) hypertension (principal); I48.91 Unspecified atrial fibrillation; R73.9 Hyperglycemia, unspecified
CPT/HCPCS: 36415; 80053; 80061; 83036; 83721; 84443; 85025

== ENCOUNTER 2022-02-09 09:03 | Outpatient (CLI) | payer MEDICARE, BC ==
[2022-02-09 12:05] LABS: CALCIUM 9.4 mg/dL (8.5-10.3); CREATININE 0.9 mg/dL (0.6-1.2); POTASSIUM 4.2 mmol/L (3.5-5.0)
== END 2022-02-09 09:04 | disposition home or self-care (01) ==
LOC: LAB.N 09:03
PROVIDERS: ATTEND Internal Medicine Cardiovascular Disease
DX: Z51.81 Encounter for therapeutic drug level monitoring (principal); Z79.899 Other long term (current) drug therapy; I48.0 Paroxysmal atrial fibrillation; R00.1 Bradycardia, unspecified
CPT/HCPCS: 36415; 80048

== ENCOUNTER 2022-06-03 10:17 | Outpatient (CLI) | payer MEDICARE, BC ==
[2022-06-03 12:13] LABS: CALCIUM 9.3 mg/dL (8.5-10.3); CREATININE 0.9 mg/dL (0.6-1.2); POTASSIUM 4.2 mmol/L (3.5-5.0)
== END 2022-06-03 10:18 | disposition home or self-care (01) ==
LOC: LAB.N 10:17
PROVIDERS: ATTEND Internal Medicine Cardiovascular Disease
DX: I48.91 Unspecified atrial fibrillation (principal); Z51.81 Encounter for therapeutic drug level monitoring; Z79.899 Other long term (current) drug therapy
CPT/HCPCS: 36415; 80048

== ENCOUNTER 2022-08-25 10:48 | Outpatient (CLI) | payer MEDICARE, BC ==
[2022-08-25 17:57] LABS: BASOPHILS # (AUTO) 0.1 10^3/uL (0.0-0.1); BASOPHILS % (AUTO) 0.9 %; EOSINOPHILS % (AUTO) 0.6 %; HCT - HEMATOCRIT 44.9 % (42.0-52.0); HGB - HEMOGLOBIN 15.4 g/dL (14.0-18.0); LYMPHOCYTES # (AUTO) 1.6 10^3/uL (1.5-3.5); LYMPHOCYTES % (AUTO) 24.6 %; MEAN CORPUSCULAR HGB CONC 34.3 g/dL (32.0-36.0); MEAN CORPUSCULAR VOLUME 93.2 fL (80.0-94.0); MEAN PLATELET VOLUME 10.3 fL (7.4-11.4); MONOCYTES # (AUTO) 0.7 10^3/uL (0.0-1.0); MONOCYTES % (AUTO) 11.1 %; NEUTROPHILS % (AUTO) 62.5 %; PLT - PLATELET COUNT 225 10^3/uL (130-450); RED BLOOD COUNT 4.82 10^6/uL (4.70-6.10); RED CELL DISTRIBUTION WIDTH 12.8 % (12.0-15.0); WHITE BLOOD COUNT 6.3 x10^3/uL (4.8-10.8)
[2022-08-25 18:02] LABS: CREATININE,URINE 152.4 mg/dL; MICROALBUM/CREATININE RATIO,UR 28.9 ug/mg (<30.0); MICROALBUMIN,URINE 4.4 mg/dL (0-300.0)
[2022-08-25 18:06] LABS: ALBUMIN 4.5 g/dL (3.2-5.5); ALBUMIN/GLOBULIN RATIO 1.5 (1.0-2.2); ALKALINE PHOSPHATASE 67 IU/L (42-121); ALT ALANINE AMINOTRANSFERASE 31 IU/L (10-60); AST ASPARTATE AMINOTRANSFERASE 26 IU/L (10-42); BILIRUBIN,TOTAL 1.8 mg/dL (0.2-1.0); BUN - BLOOD UREA NITROGEN 20 mg/dL (6-20); CALCIUM 9.3 mg/dL (8.5-10.3); CARBON DIOXIDE - CO2 31 mmol/L (21-32); CHLORIDE 100 mmol/L (101-111); CHOL/HDL RATIO 4.5 (<5.0); CHOLESTEROL 177 mg/dL; CREATININE 0.9 mg/dL (0.6-1.2); GFR - MDRD 82 (>89); GLUCOSE 102 mg/dL (70-100); HDL CHOLESTEROL 39 mg/dL; LDL CHOLESTEROL,CALCULATED 105 mg/dL; LDL/HDL RATIO 2.7 (<3.6); POTASSIUM 4.3 mmol/L (3.5-5.0); SODIUM 139 mmol/L (135-145); TOTAL PROTEIN 7.6 g/dL (6.7-8.2); TRIGLYCERIDES 167 mg/dL; VLDL CHOLESTEROL 33 mg/dL
[2022-08-25 18:16] LABS: THYROID STIMULATING HORMONE 2.3 uIU/mL (0.34-5.60)
[2022-08-25 21:47] LABS: ESTIMATED AVERAGE GLUCOSE 103 mg/dL (70-100); HEMOGLOBIN A1c% 5.2 % (4.27-6.07)
== END 2022-08-25 10:49 | disposition home or self-care (01) ==
LOC: LAB.N 10:48
PROVIDERS: ATTEND Internal Medicine
DX: E11.9 Type 2 diabetes mellitus without complications (principal); N40.0 Benign prostatic hyperplasia without lower urinary tract symptoms; I48.0 Paroxysmal atrial fibrillation
CPT/HCPCS: 36415; 80053; 80061; 82043; 82570; 83036; 83721; 84153; 84443; 85025

== ENCOUNTER 2022-09-03 09:27 | Outpatient (CLI) | payer MEDICARE, BC ==
[2022-09-04 16:08] LABS: KAPPA FREE LT CHAINS SERUM 16.2 mg/L (3.3-19.4); KAPPA/LAMBDA RATIO SERUM 0.83 (0.26-1.65); LAMBDA FREE LT CHAINS SERUM 19.5 mg/L (5.7-26.3)
[2022-09-07 15:08] LABS: A/G RATIO 1.5 (0.7-1.7); ALPHA-1-GLOBULIN 0.2 g/dL (0.0-0.4); ALPHA-2-GLOBULIN 0.6 g/dL (0.4-1.0); BETA GLOBULIN 0.9 g/dL (0.7-1.3); GAMMA GLOBULIN 1.2 g/dL (0.4-1.8); GLOBULIN TOTAL 2.8 g/dL (2.2-3.9); IMMUNOGLOBULIN A 68 mg/dL (61-437); IMMUNOGLOBULIN G 705 mg/dL (603-1613); IMMUNOGLOBULIN M 799 mg/dL (15-143); M-SPIKE 0.5 g/dL (Not Observed); PROTEIN TOTAL 6.8 g/dL (6.0-8.5)
== END 2022-09-03 09:28 | disposition home or self-care (01) ==
LOC: LAB.N 09:27
PROVIDERS: ATTEND Internal Medicine
DX: G62.9 Polyneuropathy, unspecified (principal)
CPT/HCPCS: 36415; 82607; 82784; 83521; 84155; 84165; 86334

== ENCOUNTER 2022-10-22 09:47 | Outpatient (CLI) | payer MEDICARE, BC ==
[2022-10-22 10:25] VITALS: BP 106/52
--- NOTE | 2022-10-22 10:25 | SLEEP CARE CONSULTATION ---
Information from patient questionnaire entered by Reggie Arteaga. I have reviewed and concur with the information entered by Reggie Arteaga. This document represents the service I personally performed and the decisions made by me, Modesta Adams ARNP. History of Present Illness Service Date and Time: 10/22/2022 0947 Previous diagnosis: Mild, Obstructive Sleep Apnea-Hypopnea Syndrome AHI: 11.7 (in 2019) Reason for follow up: annual (LAST SEEN 08/2021) Equipment type: CPAP (Dreamstation) Equipment obtained from: Other ([facility]: getting supplies as needed) Mask style: Full face Backup mask available: Yes (old mask) Last cushion change: 2 months ago Prior sleep studies: Yes Year and Where: 2019 - [facility] HPI additional information: ERIN MELCHOR was diagnosed to have mild, AHI 11.7, obstructive sleep apnea- hypopnea syndrome and returned today for CPAP therapy annual follow-up. Sleep Study - Results Prior sleep studies: Yes Year and Where: 2019 - [facility] Compliance Data - Data Reviewed with Patient Average duration of nightly device use: 5 HRS 34 MIN 16MIN Compliance rate %: 91.1 (04/23/23-10/19/22; 178/180 days used) Current pressure setting (cmH2O): 4-6 Average residual AHI: 1.9 Central apnea: 0.1 Obstructive apnea: 0.2 Average large leak: 30 secs Subjective Patient concerns: reports: dry mouth, nose, throat. denies: aerophagia, mask discomfort, air blowing in eyes, mask leak noise, condensation in mask/hose, nasal congestion, epistaxis Observed to snore while using device: No Current pressure setting perceived as: comfortable On therapy, patient: reports: sleeping better, awakening more refreshed, being more awake and alert during the day, more rested overall. denies: drowsiness while driving Initial [place] Sleepiness Scale score: 0 (in 2019) Current [place] Sleepiness Scale score: 0 (10/22/22) Allergies and Home Medications Known drug allergies: No Drug allergies reviewed: Yes Home medication list reviewed: Yes (no changes) Review of Systems Review of systems same as previous: Yes (no changes) Physical Exam Vital signs obtained and entered by: REGGIE Evans MA Blood Pressure: 106/52 (ARM) Cuff size: regular Heart Rate: 58 O2 Saturation: 98 Height: 5 ft 9 in Weight: 181 lb 9.6 oz Body Mass Index: 26.8 BMI Classification: Overweight Impression and Plan 1. Obstructive Sleep Apnea-Hypopnea Syndrome, mild, with good treatment compliance and good apnea control. On CPAP therapy, the patient has better sleep quality and is more rested overall. Patient has significant improvement of their sleep apnea and is satisfied with current CPAP therapy. He has oral dryness and has to get up and use a mouth moisture rinse at night. He has his humidifier set at 5 and heated hose at 3 with no condensation in tubing. He is happy with current settings and states the dryness does not bother him much. He was advised to continue to use oral moisturizer rinse. Patient denies problems with nasal congestion, epistaxis, skin irritation or aerophagia. Patient's apnea severity and rationale for treatment to reduce apnea, improve sleep quality and reduce cardiovascular and cerebrovascular events was reviewed. I also reviewed the benefit of consistent device use of CPAP for arrhythmia. 2. Overweight, unspecified. Currently patients BMI is 26.8. He feels that he has been losing weight but his weight was same as last appointment. Obesity increases the risk of apnea, CPAP pressure requirements and overall health risks especially cardiovascular and diabetes. Thus patient is advised to lose weight. The patient's CPAP pressure range should accommodate some weight loss. Symptoms to report for additional pressure adjustment discussed. * Continue auto CPAP pressure at 4-6 cmH2O * Update supplies * Notify me if snoring with mask or feeling that the pressure is too much or too little * Attempt to lose weight * Call this office if any problems using CPAP * Return for follow up in 1 year, or sooner if concerns arise Counseling Topics: Spare mask, Weight loss health impact Visit Type: In Office Time Spent with Patient (minutes): 20 Provider Statement: I spent 100% of the Face to Face Visit with the patient with greater than 50% spent counseling the patient and coordination of care.
== END 2022-10-22 09:48 | disposition home or self-care (01) ==
LOC: SC 09:47
PROVIDERS: ATTEND Nurse Practitioner Family
DX: G47.33 Obstructive sleep apnea (adult) (pediatric) (principal); E66.3 Overweight; Z68.26 Body mass index [BMI] 26.0-26.9, adult
CPT/HCPCS: 99213; G0463; 99212

== ENCOUNTER 2022-12-17 09:48 | Outpatient (CLI) | payer MEDICARE, BC ==
[2022-12-17 11:58] LABS: CALCIUM 9.1 mg/dL (8.5-10.3); CREATININE 0.8 mg/dL (0.6-1.2); POTASSIUM 4.3 mmol/L (3.5-5.0)
== END 2022-12-17 09:49 | disposition home or self-care (01) ==
LOC: LAB.N 09:48
PROVIDERS: ATTEND Nurse Practitioner Family
DX: I49.5 Sick sinus syndrome (principal); Z45.09 Encounter for adjustment and management of other cardiac device
CPT/HCPCS: 36415; 80048

== ENCOUNTER 2023-04-01 10:14 | Outpatient (CLI) | payer MEDICARE, BC ==
[2023-04-01 12:23] LABS: CALCIUM 9.2 mg/dL (8.5-10.3); POTASSIUM 4.2 mmol/L (3.5-4.5)
== END 2023-04-01 10:15 | disposition home or self-care (01) ==
LOC: LAB.N 10:14
PROVIDERS: ATTEND Nurse Practitioner Family
DX: I49.5 Sick sinus syndrome (principal); Z45.09 Encounter for adjustment and management of other cardiac device
CPT/HCPCS: 36415; 80048

== ENCOUNTER 2023-05-30 06:03 | Emergency (ER) | payer MEDICARE, BC ==
[2023-05-30] MEDS ORDERED: diltiaZEM INJ 5 MG/ML VIAL IVP ONE (06:18)
[2023-05-30] MEDS ORDERED: SODIUM CHLORIDE 0.9% 500 ML IV STA (06:30)
[2023-05-30 06:42] LABS: BASOPHILS % (AUTO) 0.5 %; EOSINOPHILS # (AUTO) 0.1 10^3/uL (0.0-0.7); EOSINOPHILS % (AUTO) 0.7 %; HCT - HEMATOCRIT 46.8 % (42.0-52.0); HGB - HEMOGLOBIN 16.4 g/dL (14.0-18.0); LYMPHOCYTES % (AUTO) 24.9 %; MEAN CORPUSCULAR HEMOGLOBIN 32.1 pg (27.0-31.0); MEAN CORPUSCULAR VOLUME 91.6 fL (80.0-94.0); MEAN PLATELET VOLUME 9.8 fL (7.4-11.4); MONOCYTES # (AUTO) 0.9 10^3/uL (0.0-1.0); MONOCYTES % (AUTO) 11.5 %; NEUTROPHILS % (AUTO) 61.8 %; PLT - PLATELET COUNT 231 10^3/uL (130-450); RED BLOOD COUNT 5.11 10^6/uL (4.70-6.10); WHITE BLOOD COUNT 8.1 x10^3/uL (4.8-10.8)
[2023-05-30 06:54] LABS: ALBUMIN 4.7 g/dL (3.2-5.5); ALBUMIN/GLOBULIN RATIO 1.6 (1.0-2.2); BILIRUBIN,TOTAL 1.3 mg/dL (0.2-1.0); CALCIUM 9.4 mg/dL (8.5-10.3); CREATININE 0.8 mg/dL (0.6-1.3); POTASSIUM 3.6 mmol/L (3.5-4.5); TOTAL PROTEIN 7.6 g/dL (6.4-8.9)
[2023-05-30] MEDS ORDERED: diltiaZEM INJ 5 MG/ML VIAL IVP STA (07:25)
[2023-05-30] MEDS ORDERED: SODIUM CHLORIDE 0.9% 1,000 ML IV STA (07:25)
[2023-05-30] MEDS ORDERED: ETOMIDATE 40 MG/20 ML VIAL IVP STA (07:28)
--- NOTE | 2023-05-30 08:48 | ED Physician Documentation ---
PD HPI CHEST PAIN - Stated complaint Stated Complaint: HIGH HEART RATE - Chief complaint Chief Complaint: Cardiac - History obtained from History obtained from: Patient - History of Present Illness Timing - onset: How many hours ago (2-3), Today Timing - onset during: Rest Timing - duration: Hours (2-3) Timing - details: Abrupt onset, Still present Quality: Pressure (mainly feeling of paliptations and fast heart rate. No chest pain nor dyspnea.) Location: Substernal Improved by: No: Rest Associated symptoms: Palpitations. No: Shortness of air, Nausea, Feeling faint / dizzy Similar symptoms before: Diagnosis (feeling similar to prior atrial fib episos, last one in 2020 prior to getting ablation at 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).) Recently seen: Not recently seen Review of Systems Constitutional: denies: Fever, Chills Nose: denies: Rhinorrhea / runny nose, Congestion Throat: denies: Sore throat Cardiac: denies: Chest pain / pressure, Pedal edema, Calf pain Respiratory: denies: Dyspnea, Cough GI: denies: Abdominal Pain PD PAST MEDICAL HISTORY - Past Medical History Past Medical History: Yes Cardiovascular: Hypertension, Atrial fibrillation (on Tikosyn and Xarelto) Respiratory: Sleep apnea, CPAP use Neuro: None Endocrine/Autoimmune: None GI: None : Benign prostate hypertrophy HEENT: Glaucoma Psych: Depression, Anxiety Musculoskeletal: None Derm: None - Past Surgical History Past Surgical History: Yes Cardiovascular: Cardiac catheterization, Other HEENT: Tonsil/Adenoidectomy - Present Medications Home Medications: Ambulatory Orders Medication Instructions Recorded Confirmed Latanoprost 0.005% Ophth Drops 1 drop EACHEYE DAILY 03/05/14 10/22/22 [Xalatan Ophth Drops] Tamsulosin [Flomax] 0.4 mg PO DAILY 01/14/16 10/22/22 Dofetilide [Tikosyn] 500 mcg PO BID 11/15/20 10/22/22 Rivaroxaban [Xarelto] 20 mg PO DAILY #30 tablet 11/15/20 10/22/22 amLODIPine [Norvasc] 5 mg PO BID 11/15/20 10/22/22 Potassium Chloride [K-Dur] 20 meq PO DAILY 01/29/21 10/22/22 Brimonidine 0.2% Ophth Drops 75 drops EACHEYE DAILY 07/09/21 10/22/22 [Alphagan P 0.2% Ophth Drops] dexAMETHasone [Decadron] 6 mg PO DAILY #6 tablet 07/14/21 10/22/22 - Allergies Allergies/Adverse Reactions: Allergies Allergy/AdvReac Type Severity Reaction Status Date / Time No Known Drug Allergies Allergy Verified 05/30/23 06:13 - Social History Does the pt smoke?: No Smoking Status: Never smoker Does the pt drink ETOH?: No Does the pt have substance abuse?: No - Immunizations Immunizations are current?: No - POLST Patient has POLST: Yes POLST Status: Full Code (However, if he has multiple admissions with a deterioration in overall quality of life and that he can no longer thing for himself, feed himself, etc. to let him go) PD ED PE NORMAL - Vitals Vital signs reviewed: Yes - General General: Alert and oriented X 3, No acute distress, Well developed/nourished - HEENT HEENT: Pharynx benign (opens mouth widely and well. ) - Neck Neck: Supple, no meningeal sign, No adenopathy - Cardiac Cardiac: No murmur. No: RRR (irregular and fast at 120-130) - Respiratory Respiratory: No respiratory distress, Clear bilaterally - Abdomen Abdomen: Soft, Non tender - Extremities Extremities: No edema, No calf tenderness / cord - Neuro Neuro: Alert and oriented X 3, No motor deficit, Normal speech Results - Vitals Vitals: Vital Signs - 24 hr 05/30/23 05/30/23 05/30/23 06:11 06:16 06:39 Temperature 36.9 C Heart Rate 121 H 143 H 119 H Respiratory 18 18 Rate Blood Pressure 166/89 H 112/65 O2 Saturation 98 99 If not protocol : Oxygen Flow, liters/minute 05/30/23 05/30/23 05/30/23 06:44 06:46 06:50 Temperature Heart Rate 106 H 85 103 H Respiratory Rate Blood Pressure 114/76 O2 Saturation If not protocol : Oxygen Flow, liters/minute 05/30/23 05/30/23 05/30/23 07:02 07:38 08:05 Temperature Heart Rate 111 H 101 H 122 H Respiratory 18 18 20 Rate Blood Pressure 121/72 135/94 H 152/90 H O2 Saturation 98 99 100 If not protocol 3 : Oxygen Flow, liters/minute 05/30/23 05/30/23 05/30/23 08:06 08:08 08:10 Temperature Heart Rate 64 116 H 58 L Respiratory 20 18 14 Rate Blood Pressure 169/69 H 155/95 H O2 Saturation 95 100 If not protocol 3 3 : Oxygen Flow, liters/minute 05/30/23 05/30/23 05/30/23 08:12 08:14 08:36 Temperature Heart Rate 57 L 53 L 47 L Respiratory 20 16 18 Rate Blood Pressure 165/70 H 157/70 H 150/63 H O2 Saturation 100 100 98 If not protocol 3 3 : Oxygen Flow, liters/minute 05/30/23 05/30/23 05/30/23 09:00 09:12 09:29 Temperature Heart Rate 43 L 43 L 41 L Respiratory 18 18 18 Rate Blood Pressure 128/56 L 123/57 L 120/59 L O2 Saturation 97 99 99 If not protocol : Oxygen Flow, liters/minute 05/30/23 09:30 Temperature Heart Rate 40 L Respiratory 18 Rate Blood Pressure 115/62 O2 Saturation 97 If not protocol : Oxygen Flow, liters/minute Oxygen O2 Source Room air - EKG (time done) 0609 EKG releavant findings:: EKG personally interpreted by author of this note. Relevant findings are: Rate: Rate (enter#) (1443) Rhythm: Atrial fibrillation Intervals: Wide QRS Ischemia: Normal ST segments, ST depression (diffusely likely rate related ischemia. Similar to May 2021. ) 08:11 EKG releavant findings:: EKG personally interpreted by author of this note. Relevant findings are: Rate: Rate (enter#) (57) Rhythm: Sinus bradycardia [place]: Normal Intervals: Normal AL QRS: Normal Ischemia: Normal ST segments. No: ST elevation c/w ischemia, ST depression - Labs Labs: Laboratory Tests 05/30/23 05/30/23 05/30/23 06:18 06:18 06:18 WBC 8.1 RBC 5.11 Hgb 16.4 Hct 46.8 MCV 91.6 MCH 32.1 H MCHC 35.0 RDW 12.0 Plt Count 231 MPV 9.8 Neut # (Auto) 5.0 Lymph # (Auto) 2.0 Keith # (Auto) 0.9 Eos # (Auto) 0.1 Baso # (Auto) 0.0 Absolute Nucleated RBC 0.00 Nucleated RBC % 0.0 Sodium 140 Potassium 3.6 Chloride 106 Carbon Dioxide 26 Anion Gap 8.0 BUN 25 H Creatinine 0.8 Estimated GFR (MDRD) 94 Glucose 121 H Calcium 9.4 Magnesium 2.2 Total Bilirubin 1.3 H AST 22 ALT 23 Alkaline Phosphatase 67 Total Protein 7.6 Albumin 4.7 Globulin 2.9 Albumin/Globulin Ratio 1.6 Procedures - Procedural sedation Sedation prep: Informed consent, Time out completed, Last meal (dinner last night), PE performed, ASA 2 - mild disease Sedation Medications: etomidate Mallampati classification: I Patient status during sedation: Responds to tactile, Vitals remained stable, Maintained airway, Recovered uneventfully Sedation recovery: Recovered uneventfully, Back to baseline Time in sedation (Minutes): 7 - Cardioversion - Major first Indication: Tachyarrhythmia Risks, benefits, alternatives explained to: Pt Prep: IV, O2, pvc monitor, Pulse ox, Airway equip CS via: Pads, AP approach Sync: Biphasic, 150j Post cardioversion rhythm: NSR Complications: Other (no problems) Performed by: ED MD Medical Decision Making - ED course Complexity details: re-evaluated patient (heart rate slower with Diltiazem but still fib, and then increasing rate again. Discussed cardioversion with him, as he has had that couple times in the past. He is agreeable. ), considered differential (rapid atrialfib without chest pain, dsypena, nor lightheaded. Has had simlar in the past. No recent illness. Lytes okay on chemistry panel. No obvious precipitant. ), d/w patient Reviewed Lab Results: Lytes in normal range with K at lower end of normal. ED course: patient with paroxysmal atrial fib, had not had for awhile since ablation 2020. HR slowed with diltaizem briefly but then increasing again. Discussed cardioversion with patient and agreeable. This was done without incident with sedation of etomidate (propofol had interaction listed with his antiarrhythmic). No compications and had return to NSR. His heart rate was in the range of 40-55 with good BP. Presumed some effect of the diltiazem still, but then nursing talked with pt about heart rate and he stated his heart rate resting is typically 45-55. He was feeling improved for discharge. Departure - Departure Disposition: 01 Home, Self Care Clinical Impression: Paroxysmal atrial fibrillation with rapid ventricular response Condition: Stable Record reviewed to determine appropriate education?: Yes Instructions: ED Cardioversion Electrical, ED Sedation Procedural Discon Follow-Up: Jai Fuentes MD [Primary Care Provider] - Simon Aparicio MD [Physician No Access] - JUNIOR FLORES MD [Physician No Access] - Comments: Light activity today and stay well-hydrated. Continue usual medications. Contact your drop hammer set up operator Wednesday to update them on the episode. With a single episode like this, my past experience is a do not tend to change any medications or such but mainly see if you have further episodes. They may want you to wear a heart monitor for a week or so to ensure you are not having brief episodes in the background otherwise. Make note if you have recurring episodes even if brief to track it with your drop hammer set up operator. Return to the ER if needed. Forms: PCP List Discharge Date/Time: 05/30/23 09:48
[2023-05-30 09:35] VITALS: BP 115/62; O2SAT 97
== END 2023-05-30 09:48 | disposition home or self-care (01) ==
LOC: ED 06:03
DX: I48.0 Paroxysmal atrial fibrillation (principal); I10 Essential (primary) hypertension; Z79.01 Long term (current) use of anticoagulants; Z79.899 Other long term (current) drug therapy
CPT/HCPCS: 36415; 80053; 83735; 85025; 92960; 93005; 94770; 99284

== ENCOUNTER 2023-07-14 07:58 | Outpatient (CLI) | payer MEDICARE, BC ==
[2023-07-14 12:06] LABS: CALCIUM 9.3 mg/dL (8.5-10.3); CREATININE 0.8 mg/dL (0.6-1.3); MAGNESIUM 2.3 mg/dL (1.7-2.3); POTASSIUM 4.4 mmol/L (3.5-4.5)
== END 2023-07-14 07:59 | disposition home or self-care (01) ==
LOC: LAB.N 07:58
PROVIDERS: ATTEND Nurse Practitioner
DX: I48.0 Paroxysmal atrial fibrillation (principal); Z51.81 Encounter for therapeutic drug level monitoring; Z79.899 Other long term (current) drug therapy
CPT/HCPCS: 36415; 80048; 83735

== ENCOUNTER 2023-10-22 08:55 | Outpatient (CLI) | payer MEDICARE, BC ==
--- NOTE | 2023-10-22 09:18 | Sleep Patient Instructions ---
Sleep Center Visit Summary - Patient Visit Information Reason for Visit: Annual Follow up - Patient Instructions Additional Instructions: You will continue with CPAP therapy with pressure set at 4-6 cmH2O. A supply prescription will be updated with your DME. We encourage you to continue to try to lose weight. Please follow up with the sleep care office in 1 year. - Clinic Information Contact: [facility] [address] [place] [address] [email or web address] T: [phone]
--- NOTE | 2023-10-22 09:21 | SLEEP CARE CONSULTATION ---
Information from patient questionnaire entered by Reggie Arteaga. I have reviewed and concur with the information entered by Reggie Arteaga. This document represents the service I personally performed and the decisions made by me, Modesta Adams ARNP. History of Present Illness Service Date and Time: 10/22/2023 0855 Previous diagnosis: Mild, Obstructive Sleep Apnea-Hypopnea Syndrome AHI: 11.7 (in 2019) Reason for follow up: annual (LAST SEEN 09/2022) Equipment type: CPAP ([employer] recertified; s/u 08/17/2019, NEED MACHINE) Equipment obtained from: Other ([facility]: getting supplies as needed) Mask style: Full face Mask brand: Resmed (AirFit [id number]) Backup mask available: Yes Last cushion change: 1 year Prior sleep studies: Yes Year and Where: 2018 - [facility] HPI additional information: ERIN MELCHOR was diagnosed to have mild, AHI 11.7, obstructive sleep apnea- hypopnea syndrome and returned today for CPAP therapy annual follow-up. Sleep Study - Results Prior sleep studies: Yes Year and Where: 2019 - [facility] CPAP Compliance Data - Data Reviewed with Patient Average duration of nightly device use: 5 HRS 25 MINS 31 SECS Compliance rate %: 88.2 (10/21/22-10/20/23; 341/365 days used) Current pressure setting (cmH2O): 4-6 Average residual AHI: 1.8 Central apnea: 0 Obstructive apnea: 0.2 Hypopnea: 1.6 Average large leak: 3 mins 14 secs Subjective Missed days of use due to: reports: travel Patient concerns: denies: aerophagia, mask discomfort, air blowing in eyes, mask leak noise, condensation in mask/hose, nasal congestion, dry mouth, nose, throat, epistaxis Observed to snore while using device: No Current pressure setting perceived as: comfortable On therapy, patient: reports: sleeping better, awakening more refreshed, being more awake and alert during the day, more rested overall. denies: drowsiness while driving Initial [place] Sleepiness Scale score: 0 (in 2019) Current [place] Sleepiness Scale score: 1 (10/22/23) Allergies and Home Medications Known drug allergies: No Drug allergies reviewed: Yes Home medication list reviewed: Yes (no changes) Allergy and home medication list: Allergies No Known Drug Allergies Allergy Review of Systems Review of systems same as previous: Yes (NO CHANGE) Physical Exam Vital signs obtained and entered by: REGGIE Evans MA Blood Pressure: 135/57 (LEFT ARM) Cuff size: regular Heart Rate: 56 O2 Saturation: 97 Height: 5 ft 9 in Weight: 186 lb Body Mass Index: 27.4 BMI Classification: Overweight Impression and Plan 1. Obstructive Sleep Apnea-Hypopnea Syndrome, mild, with good treatment compliance and good apnea control. On CPAP therapy, the patient has better sleep quality and is more rested overall. Patient has significant improvement of their sleep apnea and is satisfied with current CPAP therapy. Patient denies problems with oral dryness, nasal congestion, epistaxis, skin irritation or aerophagia. Patient's apnea severity and rationale for treatment to reduce apnea, improve sleep quality and reduce cardiovascular and cerebrovascular events was reviewed. I also reviewed the benefit of consistent device use of CPAP for arrhythmia. 2. Overweight, unspecified. Currently patients BMI is 27.4. Obesity increases the risk of apnea, CPAP pressure requirements and overall health risks especially cardiovascular and diabetes. Thus patient is advised to lose weight. * Continue auto CPAP pressure at 4-6 cmH2O * Update supply prescription * Notify me if snoring with mask or feeling that the pressure is too much or too little * Attempt to lose weight * Call this office if any problems using CPAP * Return for follow up in 12 months, or sooner if concerns arise Counseling Topics: Spare mask, Weight loss health impact Prescriptions: Device supplies Follow up with Sleep Care in: 1 year Visit Type: In Office Time Spent with Patient (minutes): 20 Provider Statement: I spent 100% of the Face to Face Visit with the patient with greater than 50% spent counseling the patient and coordination of care.
[2023-10-22 09:30] VITALS: BP 135/57; O2SAT 97
== END 2023-10-22 08:56 | disposition home or self-care (01) ==
LOC: SC 08:55
PROVIDERS: ATTEND Nurse Practitioner Family
DX: G47.33 Obstructive sleep apnea (adult) (pediatric) (principal); E66.3 Overweight; Z68.27 Body mass index [BMI] 27.0-27.9, adult
CPT/HCPCS: 99213; G0463; 99212

== ENCOUNTER 2023-11-10 07:46 | Outpatient (CLI) | payer MEDICARE, BC ==
[2023-11-10 13:02] LABS: CALCIUM 9.5 mg/dL (8.5-10.3); CREATININE 0.8 mg/dL (0.6-1.3); MAGNESIUM 2.1 mg/dL (1.7-2.3); POTASSIUM 4.3 mmol/L (3.5-4.5)
== END 2023-11-10 07:47 | disposition home or self-care (01) ==
LOC: LAB.N 07:46
PROVIDERS: ATTEND Nurse Practitioner
DX: Z51.81 Encounter for therapeutic drug level monitoring (principal); Z79.899 Other long term (current) drug therapy; I48.0 Paroxysmal atrial fibrillation
CPT/HCPCS: 36415; 80048; 83735

== ENCOUNTER 2023-11-26 10:25 | Outpatient (CLI) | payer MEDICARE, BC ==
[2023-11-26 18:08] LABS: BASOPHILS # (AUTO) 0.1 10^3/uL (0.0-0.1); BASOPHILS % (AUTO) 0.8 %; EOSINOPHILS % (AUTO) 0.6 %; HCT - HEMATOCRIT 44.2 % (42.0-52.0); HGB - HEMOGLOBIN 14.6 g/dL (14.0-18.0); LYMPHOCYTES # (AUTO) 1.6 10^3/uL (1.5-3.5); LYMPHOCYTES % (AUTO) 23.7 %; MEAN CORPUSCULAR HEMOGLOBIN 31.5 pg (27.0-31.0); MEAN CORPUSCULAR VOLUME 95.3 fL (80.0-94.0); MEAN PLATELET VOLUME 9.8 fL (7.4-11.4); MONOCYTES # (AUTO) 0.8 10^3/uL (0.0-1.0); MONOCYTES % (AUTO) 11.9 %; NEUTROPHILS # (AUTO) 4.1 10^3/uL (1.5-6.6); NEUTROPHILS % (AUTO) 62.5 %; PLT - PLATELET COUNT 244 10^3/uL (130-450); RED BLOOD COUNT 4.64 10^6/uL (4.70-6.10); RED CELL DISTRIBUTION WIDTH 12.7 % (12.0-15.0); WHITE BLOOD COUNT 6.5 x10^3/uL (4.8-10.8)
[2023-11-26 18:45] LABS: ESTIMATED AVERAGE GLUCOSE 91 mg/dL (70-100); HEMOGLOBIN A1c% 4.8 % (4.27-6.07)
[2023-11-26 18:51] LABS: ALBUMIN 4.6 g/dL (3.2-5.5); ALBUMIN/GLOBULIN RATIO 1.6 (1.0-2.2); ALKALINE PHOSPHATASE 64 IU/L (42-121); ALT ALANINE AMINOTRANSFERASE 22 IU/L (10-60); AST ASPARTATE AMINOTRANSFERASE 21 IU/L (10-42); BILIRUBIN,TOTAL 1.1 mg/dL (0.2-1.0); BUN - BLOOD UREA NITROGEN 30 mg/dL (6-20); CALCIUM 9.7 mg/dL (8.5-10.3); CARBON DIOXIDE - CO2 29 mmol/L (21-32); CHLORIDE 105 mmol/L (101-111); CHOL/HDL RATIO 4.7 (<5.0); CHOLESTEROL 168 mg/dL; CREATININE 0.9 mg/dL (0.6-1.3); GFR - MDRD 82 (>89); GLUCOSE 104 mg/dL (74-104); HDL CHOLESTEROL 36 mg/dL; LDL CHOLESTEROL,CALCULATED 103 mg/dL; LDL/HDL RATIO 2.9 (<3.6); POTASSIUM 4.2 mmol/L (3.5-4.5); SODIUM 139 mmol/L (135-145); TOTAL PROTEIN 7.4 g/dL (6.4-8.9); TRIGLYCERIDES 146 mg/dL (48-352); VLDL CHOLESTEROL 29 mg/dL
[2023-11-26 19:07] LABS: THYROID STIMULATING HORMONE 1.79 uIU/mL (0.34-5.60)
== END 2023-11-26 10:26 | disposition home or self-care (01) ==
LOC: LAB.N 10:25
PROVIDERS: ATTEND Internal Medicine
DX: I10 Essential (primary) hypertension (principal); Z13.220 Encounter for screening for lipoid disorders; D47.2 Monoclonal gammopathy; I48.0 Paroxysmal atrial fibrillation; N40.0 Benign prostatic hyperplasia without lower urinary tract symptoms; R73.01 Impaired fasting glucose
CPT/HCPCS: 36415; 80053; 80061; 82784; 83036; 83521; 83721; 84153; 84155; 84165; 84443; 85025; 86334

== ENCOUNTER 2024-01-28 13:13 | Outpatient (CLI) | payer MEDICARE, BC ==
[2024-01-28 18:30] LABS: CALCIUM 9.6 mg/dL (8.5-10.3); CREATININE 0.8 mg/dL (0.6-1.3); POTASSIUM 4.4 mmol/L (3.5-4.5)
== END 2024-01-28 13:14 | disposition home or self-care (01) ==
LOC: LAB.N 13:13
PROVIDERS: ATTEND Nurse Practitioner
DX: I48.0 Paroxysmal atrial fibrillation (principal); Z51.81 Encounter for therapeutic drug level monitoring; Z79.899 Other long term (current) drug therapy
CPT/HCPCS: 36415; 80048

== ENCOUNTER 2024-05-10 11:42 | Outpatient (CLI) | payer MEDICARE, BC ==
[2024-05-10 18:23] LABS: CALCIUM 9.9 mg/dL (8.5-10.3); CREATININE 0.8 mg/dL (0.6-1.3); POTASSIUM 4.1 mmol/L (3.5-4.5)
== END 2024-05-10 11:43 | disposition home or self-care (01) ==
LOC: LAB.N 11:42
PROVIDERS: ATTEND Nurse Practitioner
DX: I48.0 Paroxysmal atrial fibrillation (principal); Z51.81 Encounter for therapeutic drug level monitoring; Z79.899 Other long term (current) drug therapy; I10 Essential (primary) hypertension
CPT/HCPCS: 36415; 80048